=== PATIENT | female | born 1955 | race Hispanic/Latino ===

== ENCOUNTER 2016-07-31 09:48 | Inpatient (IN) | payer BC ==
[2016-07-31 09:56] VITALS: BMI 30.2
[2016-07-31 10:27] LABS: ADD MANUAL DIFF? NO
[2016-07-31 10:30] LABS: BASO # 0.01 K/mm3 (0.0-2.0); BASO % 0.1 % (0.0-3.0); EOS % 0.1 % (1.5-5.0); GRAN # 6.97 (1.4-6.5); GRAN % 77.5 % (50.0-68.0); HEMATOCRIT 39.9 % (36.0-48.0); LYMPH # 1.3 (1.2-3.4); LYMPH % 14.5 % (22.0-35.0); MEAN CELL VOLUME 84.4 fL (80.0-105.0); MEAN CORPUSCULAR HEMOGLOBIN 30.4 pg (25.0-35.0); MEAN CORPUSCULAR HGB CONC 36.1 g/dl (31.0-37.0); MEAN PLATELET VOLUME 11.4 fl (7.0-11.0); MONO # 0.7 (0.1-0.6); MONO % 7.8 % (1.0-6.0); PLATELET COUNT 290 10^3/uL (120.0-450.0)
[2016-07-31 10:31] LABS: PH,URINE 6.5 (4.7-8.0); URINE BILIRUBIN SMALL (NEGATIVE); URINE BLOOD NEGATIVE (NEGATIVE); URINE GLUCOSE (UA) NEGATIVE (NEGATIVE); URINE KETONE 15 mg/dL (NEGATIVE); URINE LEUKOCYTE ESTERASE NEGATIVE Leu/uL (NEGATIVE); URINE PROTEIN 30 mg/dL (<30 mg/dL); URINE UROBILINOGEN 0.2 E.U./dL (<1 E.U./dL)
[2016-07-31 10:34] LABS: URINE APPEARANCE SL CLOUDY (CLEAR); URINE COLOR LIGHT YELLOW (YELLOW)
--- NOTE | 2016-07-31 10:40 | ED PDOC ---
Arrival/HPI <Geoff Dhaliawl - Last Filed: 07/31/16 15:34> - General Historian: Patient, Family (son) - History of Present Illness Time/Duration: Other (see hpi) Context: Home <Rivas Fields - Last Filed: 08/06/16 00:18> - General Chief Complaint: Psychiatric Evaluation Time Seen by Provider: 07/31/16 10:26 - History of Present Illness Narrative History of Present Illness (Text): 07/31/16 10:37 Information was provided by patient' Son. This 61 yo Zeina Perez, a 61 year old female whose past medical history includes alcohol abuse, Hypertension, and Hepatitis B and C, depression, is brought to this ED by BLS for PES evaluation. Son stated patient has not been answering phone calls, so he showed up to patient home. Son found patient with auditory hallucination. Patient was talking to family members as they were in the house, however, patient was alone. Patient denies any complains at this time (Rivas Fields) Past Medical History - Provider Review Nursing Documentation Reviewed: Yes - Infectious Disease Hx of Infectious Diseases: None - Tetanus Immunization Tetanus Immunization: Unknown - Reproductive Menopause: Yes - Cardiac Hx Hypertension: Yes - Pulmonary Hx Respiratory Disorders: No - Neurological Hx Neurological Disorder: Yes (ams) Other/Comment: ETOH ABUSE - HEENT Hx HEENT Disorder: No - Renal Hx Renal Disorder: No - Endocrine/Metabolic Hx Endocrine Disorders: No - Hematological/Oncological Hx Hepatitis B: Yes Hx Hepatitis C: Yes - Integumentary Hx Dermatological Disorder: No - Musculoskeletal/Rheumatological Hx Falls: No - Gastrointestinal Hx Gastrointestinal Disorders: Yes Other/Comment: ETOH ABUSE - Psychiatric Hx Psychophysiologic Disorder: Yes (Alcohol abuse, heavy smoker) Hx Substance Use: No - Past Surgical History Past Surgical History: No Previous - Anesthesia Hx Anesthesia: No - Suicidal Assessment Feels Threatened In Home Enviroment: No <Rivas Fields - Last Filed: 08/06/16 00:18> Family/Social History - Physician Review Nursing Documentation Reviewed: Yes Family/Social History: No Known Family HX Smoking Status: Heavy Smoker > 10 Cigarettes Daily Hx Alcohol Use: Yes Hx Substance Use: No Hx Substance Use Treatment: No <Rivas Fields - Last Filed: 08/06/16 00:18> Allergies/Home Meds <Geoff Dhaliwal - Last Filed: 07/31/16 15:34> <Rivas Fields - Last Filed: 08/06/16 00:18> Allergies/Adverse Reactions: Allergies No Known Allergies Allergy (Verified 10/30/15 11:58) Home Medications: Home Meds Medication Instructions Recorded Confirmed Escitalopram [Lexapro] 10 mg PO HS 07/31/14 07/31/16 Pantoprazole Sodium [Protonix] 40 mg PO DAILY 07/31/14 07/31/16 Propranolol Hydrochloride [Inderal] 40 mg PO BID 07/31/14 07/31/16 Tramadol Hydrochloride [Tramadol] 50 mg PO TID PRN 08/02/14 07/31/16 Review of Systems - Review of Systems Constitutional: Normal. absent: Fatigue, Weight Change, Fevers Eyes: Normal. absent: Vision Changes ENT: Normal Respiratory: Normal. absent: SOB, Cough Cardiovascular: Normal. absent: Chest Pain, Palpitations Gastrointestinal: Normal. absent: Abdominal Pain, Nausea, Vomiting Genitourinary Female: Normal Musculoskeletal: Arthralgias (chronic) Skin: Normal. absent: Rash Neurological: Normal. absent: Headache, Dizziness Endocrine: Normal Hemo/Lymphatic: Normal Psychiatric: Other (Hallucination) <Rivas Fields P - Last Filed: 08/06/16 00:18> Physical Exam Temperature: Afebrile Blood Pressure: Hypertensive Pulse: Bradycardic Respiratory Rate: Normal Appearance: Positive for: Well-Appearing, Non-Toxic, Comfortable Pain Distress: None Mental Status: Positive for: Alert and Oriented X 3 - Systems Exam Head: Present: Atraumatic, Normocephalic Pupils: Present: PERRL Extroacular Muscles: Present: EOMI Conjunctiva: Present: Normal Mouth: Present: Moist Mucous Membranes Neck: Present: Normal Range of Motion Respiratory/Chest: Present: Clear to Auscultation, Good Air Exchange. No: Respiratory Distress, Accessory Muscle Use Cardiovascular: Present: Regular Rate and Rhythm, Normal S1, S2. No: Murmurs Abdomen: Present: Normal Bowel Sounds. No: Tenderness, Distention, Peritoneal Signs Back: Present: Normal Inspection. No: CVA Tenderness Upper Extremity: Present: Normal Inspection, Normal ROM, NORMAL PULSES, Neurovascularly Intact, Capillary Refill < 2s. No: Cyanosis, Edema Lower Extremity: Present: Normal Inspection, NORMAL PULSES, Normal ROM, Neurovascularly Intact, Capillary Refill < 2 s. No: Edema, CALF TENDERNESS Neurological: Present: GCS=15, CN II-XII Intact, Speech Normal, Motor Func Grossly Intact, Normal Sensory Function, Normal Cerebellar Funct, Gait Normal Skin: Present: Warm, Dry, Normal Color. No: Rashes Psychiatric: Present: Alert, Oriented x 3, Normal Insight. No: Suicidal Ideation, Homicidal Ideation <Rivas Fields P - Last Filed: 08/06/16 00:18> Vital Signs Temp Pulse Resp BP Pulse Ox 07/31/16 15:18 98.4 F 61 18 140/80 61 L 07/31/16 09:59 97.6 F 59 L 16 160/88 H 97 Medical Decision Making - EKG Interpretation Interpreted by ED Physician: Yes Type: 12 lead EKG <Geoff Dhaliwal - Last Filed: 07/31/16 15:34> Re-evaluation Time: 14:19 Reassessment Condition: Re-examined, Improving,but remains with symptoms <Rivas Fields P - Last Filed: 08/06/16 00:18> ED Course and Treatment: 07/31/16 15:35 No symptomatic arrhythmia noted. Hypokalemia. IV kcl and oral K ordered. Will repeat K. (Geoff Dhaliwal) 07/31/16 14:00 I spoke with PES screener who spoke with Psychiatrist and recommended admission for MDD w/ Psych, under Dr. Jean-Baptiste 07/31/16 16:17 K has improved (Rivas Fields) - Lab Interpretations Lab Results: 07/31/16 09:50 07/31/16 09:50 Lab Results 07/31/16 09:50: Salicylates < 1 L, Acetaminophen < 10.0 L 07/31/16 09:50: Urine Opiates Screen Negative, Urine Methadone Screen Negative, Ur Barbiturates Screen Negative, Ur Phencyclidine Scrn Negative, Ur Amphetamines Screen Negative, U Benzodiazepines Scrn Negative, U Oth Cocaine Metabols Negative, U Cannabinoids Screen Negative 07/31/16 09:50: Sodium 138, Potassium 2.5 L* D, Chloride 105, Carbon Dioxide 22 , Anion Gap 14, BUN 11, Creatinine 0.8, Est GFR ( Amer) > 60, Est GFR ( Non-Af Amer) > 60, Random Glucose 83, Calcium 9.5, Total Bilirubin 0.4, AST 24, ALT 36, Alkaline Phosphatase 69, Troponin I < 0.01, Total Protein 6.6, Albumin 4.0, Globulin 2.6, Albumin/Globulin Ratio 1.5 07/31/16 09:50: Urine Color Light yellow, Urine Appearance Sl cloudy, Urine pH 6.5, Ur Specific [place] >= 1.030, Urine Protein 30 H, Urine Glucose (UA) Negative, Urine Ketones 15 H, Urine Blood Negative, Urine Nitrate Negative, Urine Bilirubin Small H, Urine Urobilinogen 0.2, Ur Leukocyte Esterase Negative , Urine RBC 0 - 2, Urine WBC 0 - 2, Ur Epithelial Cells 1 - 3, Urine Bacteria Few 07/31/16 09:50: PT 11.2, INR 1.04, APTT 24.4 07/31/16 09:50: WBC 9.0, RBC 4.73, Hgb 14.4, Hct 39.9, MCV 84.4, MCH 30.4, MCHC 36.1, RDW 14.0, Plt Count 290, MPV 11.4 H, Gran % 77.5 H, Lymph % (Auto) 14.5 L , [place] % (Auto) 7.8 H, Eos % (Auto) 0.1 L, Baso % (Auto) 0.1, Gran # 6.97 H, Lymph # 1.3, [place] # 0.7 H, Eos # 0.0, Baso # 0.01 - RAD Interpretation Radiology Orders: 07/31/16 10:16 CHEST PORTABLE [RAD] Stat - EKG Interpretation EKG Interpretation (Text): 07/31/16 15:34 EKG at 10:25 sinus bradycardia left axis deviation, nonspecific t wave abnormality (Geoff Dhaliwal) - Medication Orders Current Medication Orders: Acetaminophen (Tylenol 325mg Tab) 650 mg PO Q4 PRN PRN Reason: Fever >100.4 F Last Admin: 08/04/16 10:11 Dose: 650 mg Re-Assess: [facility] Pain/Vitals Document 08/04/16 11:11 MARVIN (Rec: 08/04/16 11:22 MARVIN [id number]) Pain Reassessment Is This A Pain ReAssessment? Yes Sleep Is patient sleeping during reassessment? Yes Al Hydrox/Mg Hydrox/Simethicone (Maalox Plus 30 Ml) 30 ml PO DAILY PRN PRN Reason: Upset Stomach Al Hydrox/Mg Hydrox/Simethicone (Maalox Plus 30 Ml) 30 ml PO DAILY PRN PRN Reason: Upset Stomach Chlordiazepoxide (Librium) 50 mg PO Q12 [facility] PRN Reason: Protocol Last Admin: 08/05/16 17:35 Dose: 50 mg Diphenhydramine HCl (Benadryl) 25 mg PO DAILY [facility] Last Admin: 08/05/16 08:21 Dose: 25 mg Diphenhydramine HCl (Benadryl) 25 mg PO HS [facility] Last Admin: 08/05/16 21:24 Dose: 25 mg Escitalopram Oxalate (Lexapro) 10 mg PO HS [facility] Last Admin: 08/05/16 21:26 Dose: 10 mg Folic Acid (Folic Acid) 1 mg PO DAILY [facility] Last Admin: 08/05/16 08:14 Dose: 1 mg Magnesium Hydroxide (Milk Of Magnesia) 30 ml PO DAILY PRN PRN Reason: Constipation Magnesium Hydroxide (Milk Of Magnesia) 30 ml PO DAILY PRN PRN Reason: Constipation Multivitamins (Thera Tab) 1 tab PO DAILY [facility] Last Admin: 08/05/16 08:16 Dose: 1 tab Pantoprazole Sodium (Protonix Ec Tab) 40 mg PO ACB [facility] Last Admin: 08/05/16 08:14 Dose: 40 mg Propranolol HCl (Inderal) 40 mg PO BID [facility] Last Admin: 08/05/16 17:35 Dose: 40 mg Risperidone (Risperdal Oral Soln) 1 mg PO DAILY [facility] PRN Reason: Protocol Last Admin: 08/05/16 08:20 Dose: 1 mg Re-Assess: Reassess Psych Meds Document 08/05/16 08:50 MARVIN (Rec: 08/05/16 11:11 MARVIN [id number]) Reassess Psych Med Effective Risperidone (Risperdal Oral Soln) 1 mg PO [facility] PRN Reason: Protocol Last Admin: 08/05/16 21:39 Dose: 1 mg Thiamine HCl (Vitamin B1 Tab) 100 mg PO DAILY [facility] Last Admin: 08/05/16 08:15 Dose: 100 mg Tramadol HCl (Ultram) 50 mg PO TID PRN PRN Reason: Pain, moderate (4-7) Last Admin: 08/05/16 17:42 Dose: 50 mg Re-Assess: [facility] Pain Assessment Document 08/05/16 18:42 KF (Rec: 08/05/16 21:42 KF [id number]) Pain Reassessment Is this a pain reassessment? Yes Sleep Is patient sleeping during reassessment? Yes Discontinued Medications Acetaminophen (Tylenol 325mg Tab) 650 mg PO Q4 PRN PRN Reason: Pain, Mild (1-3) Last Admin: 07/31/16 21:25 Dose: 650 mg Re-Assess: [facility] Pain/Vitals Document 07/31/16 22:25 TW (Rec: 08/01/16 00:09 TW [id number]) Pain Reassessment Is This A Pain ReAssessment? Yes Presence of Pain Presence of Pain Yes Pain Scale Used Pain Scale Used Numeric Location Pain Location Body Site Calf Intensity 2 Scale Used Numeric Chlordiazepoxide (Librium) 25 mg PO Q8 [facility] PRN Reason: Protocol Last Admin: 08/02/16 08:04 Dose: 25 mg Re-Assess: Reassess Psych Meds Document 08/02/16 09:04 ABO (Rec: 08/02/16 10:33 ABO [id number]) Reassess Psych Med Effective Chlordiazepoxide (Librium) 50 mg PO Q8 [facility] PRN Reason: Protocol Last Admin: 08/03/16 21:41 Dose: 50 mg Chlorpromazine (Thorazine) 10 mg PO HS [facility] PRN Reason: Protocol Last Admin: 08/01/16 21:34 Dose: 10 mg Re-Assess: Reassess Psych Meds Document 08/01/16 22:34 MB (Rec: 08/02/16 01:34 MB [id number]) Reassess Psych Med Effective Chlorpromazine (Thorazine) 10 mg PO STAT STA PRN Reason: Protocol Stop: 08/01/16 12:00 Last Admin: 08/01/16 12:16 Dose: 10 mg Chlorpromazine (Thorazine) 10 mg PO BID LG PRN Reason: Protocol Last Admin: 08/02/16 08:04 Dose: 10 mg Re-Assess: Reassess Psych Meds Document 08/02/16 09:04 ABO (Rec: 08/02/16 10:34 ABO [id number]) Reassess Psych Med Ineffective-LIP notifed Chlorpromazine (Thorazine) 25 mg IM Q12H PRN; Protocol PRN Reason: severe agitation Last Admin: 08/03/16 01:32 Dose: 25 mg Re-Assess: Behavioural Document 08/03/16 02:02 DC (Rec: 08/03/16 03:08 [id number] Maintenance Maintenance Dose Yes Chlorpromazine (Thorazine) 25 mg PO BID LG PRN Reason: Protocol Last Admin: 08/03/16 09:56 Dose: Not Given Non-Admin Reason: Agitation Chlorpromazine (Thorazine) 25 mg PO HS LG PRN Reason: Protocol Last Admin: 08/02/16 21:46 Dose: 25 mg Re-Assess: Reassess Psych Meds Document 08/02/16 22:46 DC (Rec: 08/03/16 03:08 [id number] Reassess Psych Med Effective Dexamethasone (Decadron) 8 mg PO STAT STA Stop: 08/01/16 04:55 Last Admin: 08/01/16 05:58 Dose: 8 mg Diphenhydramine HCl (Benadryl) 25 mg PO STAT STA Stop: 08/01/16 04:55 Last Admin: 08/01/16 05:59 Dose: 25 mg Diphenhydramine HCl (Benadryl) 25 mg PO Q6 PRN PRN Reason: Allergy symptoms Last Admin: 08/02/16 22:58 Dose: 25 mg Famotidine (Pepcid) 40 mg PO STAT STA Stop: 08/01/16 04:55 Last Admin: 08/01/16 05:59 Dose: 40 mg Potassium Chloride (Potassium Chloride 10 Meq/100 Ml) 10 meq in 100 mls @ 100 mls/hr IVPB Q2H LG Stop: 07/31/16 13:59 Last Admin: 07/31/16 15:31 Dose: 100 mls/hr Lorazepam (Ativan) 0.5 mg PO BID LG PRN Reason: Protocol Last Admin: 07/31/16 21:29 Dose: 0.5 mg Re-Assess: Reassess Psych Meds Document 07/31/16 22:29 TW (Rec: 08/01/16 00:35 TW [id number]) Reassess Psych Med Effective Lorazepam (Ativan) 1 mg PO Q8H PRN; Protocol PRN Reason: Anxiety Last Admin: 08/01/16 00:31 Dose: 1 mg Re-Assess: Reassess Psych Meds Document 08/01/16 01:31 TW (Rec: 08/01/16 03:15 TW [id number]) Reassess Psych Med Ineffective-LIP notifed Lorazepam (Ativan) 0.5 mg PO ONCE ONE PRN Reason: Protocol Stop: 08/03/16 00:32 Last Admin: 08/03/16 00:46 Dose: 0.5 mg Re-Assess: Reassess Psych Meds Document 08/03/16 01:46 DCP (Rec: 08/03/16 03:08 DCP [id number]) Reassess Psych Med Effective Magnesium Oxide (Mag-Ox) 400 mg PO BID [facility] Last Admin: 08/03/16 13:48 Dose: Not Given Non-Admin Reason: Agitation Potassium Chloride (Potassium Chloride Oral Soln) 60 meq PO STAT STA Stop: 07/31/16 10:51 Last Admin: 07/31/16 11:25 Dose: 60 meq Potassium Chloride (K-Dur 20 Meq Er Tab) 40 meq PO ONCE ONE Stop: 08/01/16 13:17 Last Admin: 08/01/16 13:56 Dose: 40 meq Potassium Chloride (K-Dur 20 Meq Er Tab) 40 meq PO ONCE ONE Stop: 08/02/16 20:08 Last Admin: 08/02/16 20:35 Dose: 40 meq Propranolol HCl (Inderal) 40 mg PO BID [facility] Last Admin: 08/04/16 09:01 Dose: 40 mg Quetiapine Fumarate (Seroquel) 12.5 mg PO [facility] PRN Reason: Protocol Last Admin: 07/31/16 21:19 Dose: 12.5 mg Re-Assess: Reassess Psych Meds Document 07/31/16 22:19 TW (Rec: 08/01/16 01:50 TW [id number]) Reassess Psych Med Effective Risperidone (Risperdal Tab) 0.5 mg PO STAT STA PRN Reason: Protocol Stop: 08/02/16 15:07 Last Admin: 08/02/16 15:18 Dose: 0.5 mg Re-Assess: Reassess Psych Meds Document 08/02/16 16:18 ABO (Rec: 08/02/16 17:44 ABO [id number]) Reassess Psych Med Ineffective-LIP notifed Ziprasidone (Geodon Inj) 10 mg IM Q12H PRN; Protocol PRN Reason: Agitation Last Admin: 08/01/16 00:31 Dose: 10 mg Re-Assess: Reassess Psych Meds Document 08/01/16 01:01 TW (Rec: 08/01/16 03:15 TW [id number]) Reassess Psych Med Ineffective-LIP notifed Disposition/Present on Arrival <Geoff Dhaliwal - Last Filed: 07/31/16 15:34> - Present on Arrival Any Indicators Present on Arrival: No History of DVT/PE: No History of Uncontrolled Diabetes: No Urinary Catheter: No History of Decub. Ulcer: No History Surgical Site Infection Following: None - Disposition Have Diagnosis and Disposition been Completed?: Yes Disposition Time: 14:20 Patient Plan: Admission <Rivas Fields - Last Filed: 08/06/16 00:18> - Disposition Diagnosis: Major depressive disorder with psychotic features, Hypokalemia Disposition: HOSPITALIZED Patient Problems: Current Active Problems Problem Status Onset Hypokalemia Acute Major depressive disorder with psychotic features Acute Condition: GOOD
[2016-07-31 10:42] LABS: INR 1.04 (0.93-1.08); PARTIAL THROMBOPLASTIN TIME 24.4 Seconds (23.7-30.8)
[2016-07-31 10:44] LABS: ALB/GLOB RATIO 1.5 (1.1-1.8); ALKALINE PHOSPHATASE 69 U/L (38-133); ALT/SGPT 36 U/L (7-56); AST/SGOT 24 U/L (15-39); BILIRUBIN,TOTAL 0.4 mg/dL (0.2-1.3); BLOOD UREA NITROGEN 11 mg/dL (7-21); CALCIUM 9.5 mg/dL (8.4-10.5); CARBON DIOXIDE 22 mmol/L (21-33); CHLORIDE 105 mmol/L (98-107); GFR AFRICAN-AMERICAN > 60; GLUCOSE,RANDOM 83 mg/dL (70-110); SODIUM 138 mmol/L (132-148); TOTAL PROTEIN 6.6 g/dL (5.8-8.3)
[2016-07-31 10:47] LABS: URINE RBC 0 - 2 /hpf (0-2); URINE WBC 0 - 2 /hpf (0-6)
[2016-07-31 10:48] LABS: URINE BACTERIA FEW (NEG)
[2016-07-31 10:49] LABS: POTASSIUM 2.5 mmol/L (3.6-5.0)
[2016-07-31] MEDS ORDERED: Potassium Chloride 20 mEq/15 ml LIQ UD PO STA (10:50)
[2016-07-31 10:55] LABS: TROPONIN I < 0.01 ng/mL
--- NOTE | 2016-07-31 12:17 | RAD ---
HISTORY: med. clearance COMPARISON: 05/15/2016 FINDINGS: LUNGS: No active pulmonary disease. PLEURA: No significant pleural effusion identified, no pneumothorax apparent. CARDIOVASCULAR: Normal. OSSEOUS STRUCTURES: No significant abnormalities. VISUALIZED UPPER ABDOMEN: Normal. OTHER FINDINGS: None. IMPRESSION: No active disease.
--- NOTE | 2016-07-31 12:28 | CARD ---
APPROVED REPORT EKG Measurement Heart [id number] <Conclusion> Sinus bradycardia Left axis deviation Nonspecific T wave abnormality Abnormal ECG
[2016-07-31 17:53] VITALS: O2SAT 99
[2016-07-31] MEDS ORDERED: Magnesium Hydroxide Susp 30 ml UD PO PRN (19:08)
[2016-07-31] MEDS ORDERED: Alum-Mag Hydrox-Simethicone Susp (30 mL) PO PRN (19:08)
--- NOTE | 2016-08-01 06:00 | CP.PCM.PN ---
Subjective - Date & Time of Evaluation Date of Evaluation: 08/01/16 Time of Evaluation: 04:30 - Subjective Subjective: Evaluated patient for lip swelling called by the nurse. Patient admitted to the [facility] for bizzare psychosis and has not been contributing to the information, speaks Togolese, and information obtained with help of Togolese speaking nurse, who was also the nurse for the patient. As per the nurse lip swelling noticed this morning around 3 am, was not noticed yesterday during 1st interview around 9 pm. Swelling has been stable, probably getting smaller since the time noticed to the time of the eval as per the nurse. Patient denies any complains. No history of allergies from the chart or from the patient. On exam, patient in no distress. Lower lip on the left side swollen, without any injury, no swelling in the eyes , tongue, pharynx No neck swelling Chest no abnormal breathing sounds Skin no rash or itching Clinically Angioedema, vs lip swelling form burn, insect bite, some other allergic reaction Patient received ativan, geodon, seroquil and tylenol since admission over night. Above meds held, patient given single dose of Decadron, benadryl, pepcid. For acute psychotic behaviour patient should be started one med at a time, and could start with haldol, librium, valium for acute behaviour. Above held meds could be restarted one at a time with close observation. Swelling of the lip will be observed by the nursing, and primary team will be notified by the nursing. Objective - Vital Signs/Intake and Output Vital Signs (last 24 hours): Temp Pulse Resp BP Pulse Ox 98.4 F 78 18 130/73 99 07/31/16 15:18 08/01/16 03:22 08/01/16 03:22 08/01/16 03:22 08/01/16 03:22 - Medications Medications: Current Medications Al Hydrox/Mg Hydrox/Simethicone (Maalox Plus 30 Ml) 30 ml PO DAILY PRN PRN Reason: Upset Stomach Magnesium Hydroxide (Milk Of Magnesia) 30 ml PO DAILY PRN PRN Reason: Constipation Quetiapine Fumarate (Seroquel) 12.5 mg PO HS LG PRN Reason: Protocol Last Admin: 07/31/16 21:19 Dose: 12.5 mg - Labs Labs: 07/31/16 17:00 PT 11.2 Seconds (9.9-11.8) 07/31/16 09:50 INR 1.04 (0.93-1.08) 07/31/16 09:50 APTT 24.4 Seconds (23.7-30.8) 07/31/16 09:50
[2016-08-01 07:56] LABS: CHOLESTEROL 170 mg/dL (130-200)
[2016-08-01 08:27] LABS: FREE T4 1.48 ng/dL (0.78-2.19)
[2016-08-01 08:41] LABS: THYROID STIMULATING HORMONE 0.88 mIU/mL (0.46-4.68)
[2016-08-01] MEDS ORDERED: Alum-Mag Hydrox-Simethicone Susp (30 mL) PO PRN (10:09)
[2016-08-01] MEDS ORDERED: Magnesium Hydroxide Susp 30 ml UD PO PRN (10:09)
[2016-08-01] MEDS ORDERED: Potassium Chloride 20 mEq ER Tab PO ONE (13:16)
[2016-08-01] MEDS: Multivitamin Therapeutic Tab PO SCH (14:01)
--- NOTE | 2016-08-01 14:47 | PCM.PSYCH ---
Initial Psychiatric Evaluation - Initial Psychiatric Evaluation Type of Admission: Voluntary Legal Status: Capacity (patient has capacity to sign consent for treatment) Chief Complaint (in patient's own words): "my sister and my was drinking and I'm here" off note patient a few years ago and patient sister lives in [place], patient is delusional, disoriented, psychotic. Patient's Reaction to Hospitalization: patient was brought in by her son for evaluation of disorganized, psychotic behavior, patient needs further evaluation and stabilization medications adjustment. History of Present Illness and Precipitating Events: shortly patient is 61 years old female, [place] descent, was brought in by her son for evaluation of disorganized, psychotic behavior, patient also has history of alcohol use disorder, withdrawal symptoms cannot be excluded, patient lives alone, has history of depression, patient alsohas history of alcohol addiction, patient needs further evaluation and stabilization on medications adjustment. Patient was seen and examined today at the treatment team meeting. Patient presented to have acceptable personal hygiene, good ADLs. patient is [place] speaking and this movie writer utilized TV translation services to interview pt. Patient presented to be completely disorganized, disoriented, rapid speech, sheetrock applicator said that it is hard to understand what pt is talking. patient was asking this movie writer where does she leave, patient also was making comments like her who and her sister will keep drinking at home and that is why she was admitted to the hospital. At the same time patient said she came to the hospital because primary care physician said that she has low potassium and she would because of that. Patient presented to have difficulty to stay focus and concentrate patient was not able to have meaningful conversation, was not able to draw a clock, remembered only two words on [employer]. pt denied v/a/t hallucinations, but was observed talking to the sealing, self, actively hallucinating. this movie writer is familiar this patient from consultation services last here. Patient has history of depression but no history of psychotic symptoms. The same time this movie writer cannot exclude that patient was Drinking on daily basis, this movie writer had prolonged conversation with the patient's primary care physician , as per PMD patient has episodes of confusion as well as our patient's employer or contact PCP and said pt seemed to be under the influence of some drugs?/alcohol/ pt also was confused at work. pt work at the [employer]. pt lives alone and has supportive son who brought pt to the hospital, pt's few years back. as per nursing report overnight patient was restless patient got Geodon, seroquel, ativan, pt got lips swelling, had angioedema, house physician d/c meds , benadryl and decadrone was given. at the moment of the interview no swelling, presented well. pt was on seroquel in the past but will put psychotropics on hold, pt might benefit from thorazine small dose. past psych h/o: denied admissions to psych, denied suicidal attempts, pt has h/ o depression, h/o alcohol use. family h/o: denied pt denied using drugs, denied smoking, denied alcohol consumptions "for the past four years", but pt is unreliable historian, last year pt was on the medical floor and pt was drinking back then. 07/31/16 09:50 07/31/16 17:00 Lab Results 08/01/16 07:00: Triglycerides 128, Cholesterol 170, LDL Cholesterol Direct 91, HDL Cholesterol 53 08/01/16 07:00: Free T4 1.48, TSH 3rd Generation 0.88 07/31/16 17:00: Potassium 3.4 L 07/31/16 09:50: Salicylates < 1 L, Acetaminophen < 10.0 L 07/31/16 09:50: Urine Opiates Screen Negative, Urine Methadone Screen Negative, Ur Barbiturates Screen Negative, Ur Phencyclidine Scrn Negative, Ur Amphetamines Screen Negative, U Benzodiazepines Scrn Negative, U Oth Cocaine Metabols Negative, U Cannabinoids Screen Negative 07/31/16 09:50: Sodium 138, Potassium 2.5 L* D, Chloride 105, Carbon Dioxide 22 , Anion Gap 14, BUN 11, Creatinine 0.8, Est GFR ( Amer) > 60, Est GFR ( Non-Af Amer) > 60, Random Glucose 83, Calcium 9.5, Total Bilirubin 0.4, AST 24, ALT 36, Alkaline Phosphatase 69, Troponin I < 0.01, Total Protein 6.6, Albumin 4.0, Globulin 2.6, Albumin/Globulin Ratio 1.5 07/31/16 09:50: Urine Color Light yellow, Urine Appearance Sl cloudy, Urine pH 6.5, Ur Specific [place] >= 1.030, Urine Protein 30 H, Urine Glucose (UA) Negative, Urine Ketones 15 H, Urine Blood Negative, Urine Nitrate Negative, Urine Bilirubin Small H, Urine Urobilinogen 0.2, Ur Leukocyte Esterase Negative , Urine RBC 0 - 2, Urine WBC 0 - 2, Ur Epithelial Cells 1 - 3, Urine Bacteria Few 07/31/16 09:50: PT 11.2, INR 1.04, APTT 24.4 07/31/16 09:50: WBC 9.0, RBC 4.73, Hgb 14.4, Hct 39.9, MCV 84.4, MCH 30.4, MCHC 36.1, RDW 14.0, Plt Count 290, MPV 11.4 H, Gran % 77.5 H, Lymph % (Auto) 14.5 L , [place] % (Auto) 7.8 H, Eos % (Auto) 0.1 L, Baso % (Auto) 0.1, Gran # 6.97 H, Lymph # 1.3, [place] # 0.7 H, Eos # 0.0, Baso # 0.01 Vital Signs Temp Pulse Resp BP Pulse Ox 08/01/16 10:27 98.2 F 08/01/16 10:21 102 F H 08/01/16 10:08 102.0 F H 83 149/91 H 08/01/16 03:22 78 18 130/73 99 07/31/16 19:05 18 07/31/16 17:53 65 18 148/79 99 07/31/16 15:18 98.4 F 61 18 140/80 61 L 07/31/16 09:59 97.6 F 59 L 16 160/88 H 97 Current Medications: Active Medications Generic Name Dose Route Start Last Admin Trade Name Freq PRN Reason Stop Dose Admin Acetaminophen 650 mg 08/01/16 10:09 08/01/16 10:21 Tylenol 325mg Tab PO 650 mg Q4 PRN Administration Fever >100.4 F Al Hydrox/Mg Hydrox/Simethicone 30 ml 07/31/16 19:08 Maalox Plus 30 Ml PO DAILY PRN Upset Stomach Al Hydrox/Mg Hydrox/Simethicone 30 ml 08/01/16 10:09 Maalox Plus 30 Ml PO DAILY PRN Upset Stomach Chlordiazepoxide 25 mg 08/01/16 14:00 Librium PO Q8 LG Protocol Chlorpromazine 10 mg 08/01/16 22:00 Thorazine PO HS [facility] Protocol Diphenhydramine HCl 25 mg 08/01/16 09:38 Benadryl PO Q6 PRN Allergy symptoms Magnesium Hydroxide 30 ml 07/31/16 19:08 Milk Of Magnesia PO DAILY PRN Constipation Magnesium Hydroxide 30 ml 08/01/16 10:09 Milk Of Magnesia PO DAILY PRN Constipation Multivitamins 1 tab 08/01/16 09:45 Thera Tab PO DAILY LG Thiamine HCl 100 mg 08/01/16 09:45 Vitamin B1 Tab PO DAILY LG Past Psychiatric History - Past Psychiatric History Previous Treatment History: None Prior Professional Help: see HPI Prior Psychiatric Treatment: see HPI At what hospital: see HPI Duration: see HPI Nature of Treatment: see HPI Explanation of prior treatment: see HPI History of Abuse: see HPI denied History of ETOH/Drug Use: see HPI History of Family Illness: see HPI Pertinent Medical Hx (Current Medical&Sleep Prob, Allergies): Allergies Allergy/AdvReac Type Severity Reaction Status Date / Time No Known Allergies Allergy Verified 10/30/15 11:58 Escitalopram [Lexapro] 10 mg PO HS 07/31/14 Pantoprazole Sodium [Protonix] 40 mg PO DAILY 07/31/14 Propranolol Hydrochloride [Inderal] 40 mg PO BID 07/31/14 Tramadol Hydrochloride [Tramadol] 50 mg PO TID PRN 08/02/14 Review of Systems - Review of Systems Systems not reviewed;Unavailable: Acuity of Condition - EENT Eyes: As Per HPI Ears: As Per HPI Nose/Mouth/Throat: As Per HPI - Breasts Breasts: As Per HPI - Cardiovascular Cardiovascular: As Per HPI - Respiratory Respiratory: As Per HPI - Gastrointestinal Gastrointestinal: As Per HPI - Genitourinary Genitourinary: As Per HPI - Reproductive: Female Reproductive:Female: As Per HPI - Menstruation Menstruation: As Per HPI - Musculoskeletal Musculoskeletal: As Par HPI - Integumentary Integumentary: As Per HPI - Neurological Neurological: As Per HPI - Psychiatric Psychiatric: As Per HPI - Endocrine Endocrine: As Per HPI - Hematologic/Lymphatic Hematologic: As Per HPI Mental Status Examination - Personal Presentation Personal Presentation: Looks stated age - Affect Affect: Broad (at times inapropriate, pt was having angry outbursts) - Motor Activity Motor Activity: Psychomotor Agitation - Reliability in Providing Information Reliability in Providing Information: Poor, due to alteration in thoughts, Poor , due to altered mood - Speech Speech: Disorganized - Mood Mood: Depressed, Anxious - Formal Thought Process Formal Thought Process: Hallucinations, Delusions, Paranoia, Loosening of associations, Flight of ideas, Circumstantial - Hallucinations/Delusions Hallucinations: Visual, Auditory - Obsessions/Compulsions Obsessions: None Compulsions: None - Cognitive Functions Orientation: Person Sensorium: Alert Attention/Concentration: Easily distracted Abstract Thinking: [place] Estimate of Intelligence: Average Judgement: Intact, as evidence by: Insight regarding need for hospitalization - Risk Risk: Withdrawal, Self-mutilation, Diminished functioning - Strength & Assets Inventory Strength & Assets Inventory: Family support, Employment status, Employment history, Cooperative - Limitations Limitations: Other (pt lives alone) DSM 5 DX - DSM 5 DSM 5 Diagnosis: psychosis NOS r/o MDD with psychosis r/o delirium due to alcohol withdrawals alcohol abuse, dependence r/o bipolar (pt was irritable, pressured speech, was not sleeping) - Recommended/Plan of Treatment Treatment Recommendations and Plan of Treatment: milieu, structure, supportive therapy Ativan be discontinued Librium was started 25 mg 3 times a day for possible withdrawalsymptoms Multivitamins, thiamine, folic acid Vital signs needs to be checked on regular basis Seroquel was discontinued because patient has lip swelling Thorazine will be given 10 mg twice a day stat dose was given patient was observed there is no side effects observed or reported Benadryl as needed collaterals from primary care physician appreciated family involvement pt will be on 1:1, pt is disoriented, has tendency of wondering in the unit, impulses unpredictable. SW evaluation Projected ELOS: 7days Prognosis: guarded Discharge Plan and Discharge Criteria: Pt will be not depressed or manic, will be more hopeful, will be not psychotic or anxious, will be not having thoughts of harming self or others, will be tolerating medications well, will not have major side effects, will be able to function, will not pose threat to self or others. - Smoking Cessation Smoking Cessation Initiated: No Reason for not providing: pt does not smoke
--- NOTE | 2016-08-01 21:16 | CON ---
DATE: 08/01/2016 The patient in room 515, bed 2. REASON FOR CONSULTATION: Hypertension, bradycardia on EKG, psychosis, alcohol abuse, obesity. HISTORY OF PRESENT ILLNESS: The patient is a 61-year-old female, known case of heavy alcohol abuse, admitted to psychiatric floor with psychosis. Found to have on EKG sinus bradycardia. The patient d enies chest pain, shortness of breath, palpitations. The patient known to have hypertension in the p ast and she is taking propranolol 40 mg b.i.d. for that. The patient also known to have hepatitis B and hepatitis C. PAST MEDICAL HISTORY: Positive for hypertension, hepatitis C, hepatitis B, alcohol abuse, also has t obacco abuse. PERSONAL HISTORY: Still smokes heavy and drinks heavy. ALLERGIES: Denies allergies. FAMILY HISTORY: Not significant. HOME MEDICATIONS: The patient was taking tramadol 50 mg t.i.d. p.r.n., propranolol hydrochloride whi ch is Inderal 40 mg b.i.d., Protonix 40 p.o. daily, Lexapro 10 mg p.o. at bedtime. REVIEW OF SYSTEMS: All other systems were reviewed, positive mentioned in the history, otherwise neg ative. PHYSICAL EXAMINATION: VITAL SIGNS: Blood pressure 149/91, earlier pressure today was 130/73, respirations 18, pulse 83, te mperature 98.2. HEENT: Head is normocephalic. Eyes: Pupils normal. Conjunctivae normal. Nose and throat normal. NECK: JVP low. Carotid equal. THORAX: AP diameter normal. LUNGS: Clear. CARDIOVASCULAR: S1, S2. ABDOMEN: Protuberant, no organomegaly. EXTREMITIES: No clubbing, no cyanosis. LABORATORY DATA: Shows WBC 9.0, hemoglobin 14.4, hematocrit 39.9, platelet 290. Sodium 138. Potass ium yesterday was 2.5. The patient received potassium therapy and today is 3.4. BUN 11, creatinine 0.8. AST, ALT normal. Troponin less than 0.01. Triglyceride 128, cholesterol 170, LDL 91, HDL 53. TSH 0.88, free T4 of 1.48, normal. Chest x-ray: No significant abnormality. EKG showed sinus phillip ycardia at 59 per minute, left axis deviation, nonspecific ST-T changes. DIAGNOSES: Hypertension, bradycardia on EKG related to Inderal therapy, alcohol abuse, history of he patitis B, hepatitis C, tobacco abuse, obesity, hypokalemia, psychosis, hypertension. PLAN: We will give extra potassium 40 mEq p.o. today and repeat SMA-7 and magnesium in the morning. The patient getting folic acid 1 mg p.o. daily, Librium 25 mg q. 8 hours. We will restart Inderal 4 0 mg p.o. b.i.d. We follow with you. We will follow labs in the morning. Yohan Bateman MD cc: [id number] TT: 08/01/2016 21:15:47 Confirmation # [id number] Dictation # [id number] mn
[2016-08-02 08:09] LABS: BLOOD UREA NITROGEN 18 mg/dL (7-21); CALCIUM 9.6 mg/dL (8.4-10.5); CARBON DIOXIDE 21 mmol/L (21-33); CHLORIDE 114 mmol/L (98-107); GFR AFRICAN-AMERICAN > 60; GLUCOSE,RANDOM 111 mg/dL (70-110); MAGNESIUM 1.6 mg/dL (1.7-2.2); PHOSPHOROUS 2.6 mg/dL (2.5-4.5); POTASSIUM 3.1 mmol/L (3.6-5.0); SODIUM 145 mmol/L (132-148)
--- NOTE | 2016-08-02 10:42 | CON ---
DATE: 08/01/2016 HISTORY OF PRESENT ILLNESS: The patient is a 61-year-old Citizen Of [place]-speaking female who was brought to [facility] Emergency Room by her son. She apparently had not been answering her phone for the past couple of days and he went to visit her, found her hallucinating, talking to people in her apartment that were not there, was having long conversations with a sister in [place]: Therefore, she was brought to the Emergency Room, was evaluated and admitted to the psychiatric department of [facility]. PAST MEDICAL HISTORY: I have known the patient since 2000. She is known to have a history of hypert ension, varicose vein surgery. She was hospitalized several times in the past for mental status carlson ges and alcohol withdrawal between 2013 and 2015. SOCIAL HISTORY: She smokes 1 pack of cigarettes a day. Drinks alcohol, 2 cups of coffee. She is a , has 1 son. ALLERGIES: She has no known medical allergies. MEDICATIONS: At the time of admission include Vicoprofen 4 times a day p.r.n., tramadol 50 mg 3 or 4 times a day as needed for low back pain, Lexapro 10 mg, Tranxene 7.5 mg 3 times a day, losartan/hydr ochlorothiazide 100/25 once a day, Wellbutrin 300 mg once a day, and pantoprazole 40 mg once a day. REVIEW OF SYSTEMS: Otherwise unremarkable. PHYSICAL EXAMINATION: GENERAL: When the patient was evaluated on 5B, she was awake, alert, oriented; however, she denied t hat anything was wrong with her. She claims she came to the Emergency Room because of right lower ex tremity pain and tenderness. She denies being brought in by her son. Denies hearing voices or talki ng to anyone. HEAD, EYES, EARS, NOSE AND THROAT: Unremarkable. NECK: Supple, with no lymphadenopathy, no goiter. LUNGS: Clear to auscultation and percussion. HEART: Regular. No murmurs are appreciated. ABDOMEN: Soft and nontender with no organomegaly. EXTREMITIES: Free of cyanosis, clubbing or edema. There is a small healing abrasion on the right pr etibial area post trauma. NEUROLOGIC: The patient is awake, alert, and oriented with no focal neurological signs. The case was discussed with Dr. Jean-Baptiste and she will be followed closely. However, from a medical point of view, the patient appears stable at this time. Dani Marroquin MD cc: [id number] TT: 08/02/2016 10:41:22 Confirmation # [id number] Dictation # [id number] tn
[2016-08-02] MEDS: Multivitamin Therapeutic Tab PO SCH (10:44)
--- NOTE | 2016-08-02 15:17 | PCM.PYCHPN ---
Psychiatric Progress Note - Psychiatric Progress Note Patient seen today, length of contact: 30 minutes Patient Chief Complaint: "I I know my at home drinking, time in this hospital for past 2 weeks" off note patient a few years back, patient was admitted 2 days ago Problems Identified/Issues Discussed: Suicide/ homicide prevention, past psychiatric h/o, current psychiatric symptoms , medical problems, risk/benefits and alternatives of medications, medications compliance, coping strategies, substance abuse h/o, relapse prevention, importance of follow up with psychiatrist and therapist, discharge plan. Medical Problems: see HPI Diagnostic Results: 07/31/16 09:50 08/02/16 06:00 Lab Results 08/02/16 06:00: Sodium 145, Potassium 3.1 L, Chloride 114 H, Carbon Dioxide 21, Anion Gap 13, BUN 18, Creatinine 0.7, Est GFR ( Amer) > 60, Est GFR (Non- Af Amer) > 60, Random Glucose 111 H, Calcium 9.6, Phosphorus 2.6, Magnesium 1.6 L 08/01/16 07:35: RPR Nonreactive 08/01/16 07:00: Triglycerides 128, Cholesterol 170, LDL Cholesterol Direct 91, HDL Cholesterol 53 08/01/16 07:00: Free T4 1.48, TSH 3rd Generation 0.88 07/31/16 17:00: Potassium 3.4 L 07/31/16 09:50: Salicylates < 1 L, Acetaminophen < 10.0 L 07/31/16 09:50: Urine Opiates Screen Negative, Urine Methadone Screen Negative, Ur Barbiturates Screen Negative, Ur Phencyclidine Scrn Negative, Ur Amphetamines Screen Negative, U Benzodiazepines Scrn Negative, U Oth Cocaine Metabols Negative, U Cannabinoids Screen Negative 07/31/16 09:50: Sodium 138, Potassium 2.5 L* D, Chloride 105, Carbon Dioxide 22 , Anion Gap 14, BUN 11, Creatinine 0.8, Est GFR ( Amer) > 60, Est GFR ( Non-Af Amer) > 60, Random Glucose 83, Calcium 9.5, Total Bilirubin 0.4, AST 24, ALT 36, Alkaline Phosphatase 69, Troponin I < 0.01, Total Protein 6.6, Albumin 4.0, Globulin 2.6, Albumin/Globulin Ratio 1.5 07/31/16 09:50: Urine Color Light yellow, Urine Appearance Sl cloudy, Urine pH 6.5, Ur Specific [place] >= 1.030, Urine Protein 30 H, Urine Glucose (UA) Negative, Urine Ketones 15 H, Urine Blood Negative, Urine Nitrate Negative, Urine Bilirubin Small H, Urine Urobilinogen 0.2, Ur Leukocyte Esterase Negative , Urine RBC 0 - 2, Urine WBC 0 - 2, Ur Epithelial Cells 1 - 3, Urine Bacteria Few 07/31/16 09:50: PT 11.2, INR 1.04, APTT 24.4 07/31/16 09:50: WBC 9.0, RBC 4.73, Hgb 14.4, Hct 39.9, MCV 84.4, MCH 30.4, MCHC 36.1, RDW 14.0, Plt Count 290, MPV 11.4 H, Gran % 77.5 H, Lymph % (Auto) 14.5 L , [place] % (Auto) 7.8 H, Eos % (Auto) 0.1 L, Baso % (Auto) 0.1, Gran # 6.97 H, Lymph # 1.3, [place] # 0.7 H, Eos # 0.0, Baso # 0.01 Vital Signs Temp Pulse Resp BP Pulse Ox 08/02/16 10:43 96 H 156/101 H 08/02/16 07:40 98.0 F 96 H 20 156/101 H 08/01/16 14:00 92 H 148/94 H 08/01/16 10:27 98.2 F 08/01/16 10:21 102 F H 08/01/16 10:08 102.0 F H 83 149/91 H 08/01/16 03:22 78 18 130/73 99 07/31/16 19:05 18 07/31/16 17:53 65 18 148/79 99 07/31/16 15:18 98.4 F 61 18 140/80 61 L 07/31/16 09:59 97.6 F 59 L 16 160/88 H 97 DSM 5 Symptoms Update: shortly patient is 61 years old female, Citizen Of [place] descent, was brought in by her son for evaluation of disorganized, psychotic behavior, patient also has history of alcohol use disorder, withdrawal symptoms cannot be excluded, patient lives alone, has history of depression, patient alsohas history of alcohol addiction, patient needs further evaluation and stabilization on medications adjustment. Patient was seen and examined today at the treatment team meeting. Patient presented to have acceptable personal hygiene, good ADLs. patient is Citizen Of [place] speaking and this card writer hand utilized TV translation services to interview pt. Patient presented to be completely disorganized, disoriented, rapid speech, quality checker said that it is hard to understand what pt is talking. pt is still delusional, emotionally labile, was crying, then giggling inappropriately. will try risperdal, will f/u on that. pt also has pressured speech, restless, passing in the hallway. As per self patient is disorganized, psychotic, restless, did not have a good night sleep. Impression psychosis NOS r/o MDD with psychosis r/o delirium due to alcohol withdrawals alcohol abuse, dependence r/o bipolar (pt was irritable, pressured speech, was not sleeping) pharmacy was called patient was on following medications Klonopin 1 mg 3 times a day last fill in June 28 Tramadol 50 mg 2 tabs 3 times a day last field in June 28 Lexapro 10 mg at the nighttime last field in June 19 Wellbutrin extended-release 300 mg daily field in June 09 Vicoprofen 200 mg over 7.5 mg every 4 hours last field in 07/19 as per son's collaterals, pt was taking medications more than what was prescribed, round short, after that was drinking alcohol. Medication Change: Yes (Thorazine was increased, Risperdal stat dose was given will follow-up) Medical Record Reviewed: Yes Consults ordered or reviewed: medical consult appreciated, discussed with PMD yesterday Mental Status Examination - Cognitive Function Orientation: Person Attention: Poor Concentration: Poor Association: Loose Fund of Knowledge: Poor - Mood Mood: Depressed, Anxious - Affect Affect: Broad (at times inapropriate, pt was having angry outbursts) - Speech Speech: Pressured - Formal Thought Process Formal Thought Process: Hallucinations, Delusions, Paranoia, Loosening of associations, Flight of ideas, Circumstantial - Suicidal Ideation Suicidal Ideation: No - Homicidal Ideation Homicidal Ideation: No Goal/Treatment Plan - Goal/Treatment Plan Need for Continued Stay: Remain at risks for inpatient hospitalization, Severe depression anxiety, Discharge may exacerbated symptoms, Severe functional impairment Progress Toward Problem(s) and Goals/Treatment Plan: milieu, structure, supportive therapy Ativan be discontinued Librium 50 mg 3 times a day for possible withdrawalsymptoms Multivitamins, thiamine, folic acid Vital signs needs to be checked on regular basis Seroquel was discontinued because patient has lip swelling [id number] mg mg twice a day and 25 mg at the nighttime for psychotic symptoms This card writer hand will implement Risperdal 0.5 mg stat if patient will tolerate that medication well we will consider to continue that and discontinue Thorazine. Benadryl as needed collaterals from primary care physician appreciated family involvement pt will be on 1:1, pt is disoriented, has tendency of wondering in the unit, impulses unpredictable. SW evaluation Estimated Date of D/C: 08/08/16 (we'll monitor closely)
[2016-08-02] MEDS ORDERED: Potassium Chloride 20 mEq ER Tab PO ONE (20:07)
[2016-08-02] MEDS: Magnesium Oxide 400 mg Tab UD PO SCH (20:34)
--- NOTE | 2016-08-02 20:34 | PN ---
DATE: 08/02/2016 The patient in 513, bed 1. REASON FOR CONSULTATION: Hypertension, bradycardia on EKG, psychosis, alcohol abuse. HISTORY OF PRESENT ILLNESS: The patient is a 61-year-old female, known case of alcohol abuse, admitt ed to psychiatric floor with psychosis found to have EKG sinus bradycardia. The patient denies any c hest pain, shortness of breath, palpitation. The patient known to have hypertension in the past. Sh ciara is taking propranolol 40 mg b.i.d. The patient also known to have hepatitis B and hepatitis C. The patient denies any cardiac symptoms at present including chest pain, shortness of breath, palpitatio n. PHYSICAL EXAMINATION: VITAL SIGNS: Blood pressure 139/89, respirations 20, pulse 79, temperature 98.0. HEAD: Normocephalic. EYES: Pupils normal. Conjunctivae normal. NOSE AND THROAT: Normal. NECK: JVP low. Carotid equal. THORAX: AP diameter normal. LUNGS: Clear. CARDIOVASCULAR: S1, S2. ABDOMEN: Soft, nontender, no organomegaly. Bowel sounds normal. EXTREMITIES: No clubbing, no cyanosis. LABORATORY DATA: Sodium 145, potassium 3.1, BUN 18, creatinine 0.7, random sugar 111, calcium 9.6, p hosphorus 2.6, magnesium 1.6. DIAGNOSES: Hypertension, bradycardia on EKG related to inderal therapy, alcohol abuse, history of he patitis B, hepatitis C, tobacco abuse, hypokalemia, psychosis, hypertension, hypomagnesemia. PLAN: We will give extra potassium 40 mEq p.o. today, will also give magnesium oxide today and will repeat labs in the morning. In the meantime, continue her propranolol 40 b.i.d. along with therapy. We will follow with you. Yohan Bateman MD cc: [id number] TT: 08/02/2016 20:33:36 Confirmation # [id number] Dictation # [id number] derrek
[2016-08-03 07:44] LABS: BLOOD UREA NITROGEN 23 mg/dL (7-21); CALCIUM 9.9 mg/dL (8.4-10.5); CARBON DIOXIDE 22 mmol/L (21-33); CHLORIDE 114 mmol/L (95-110); GFR AFRICAN-AMERICAN > 60; GLUCOSE,RANDOM 115 mg/dL (70-110); MAGNESIUM 1.7 mg/dL (1.7-2.2); PHOSPHOROUS 3.1 mg/dL (2.5-4.5); POTASSIUM 3.6 mmol/L (3.6-5.0); SODIUM 144 mmol/L (132-148)
--- NOTE | 2016-08-03 12:43 | PN ---
DATE: 08/03/2016 The patient is in room 513, bed 1. REASON FOR CONSULTATION: Hypertension, bradycardia on EKG, psychosis, alcohol abuse. HISTORY OF PRESENT ILLNESS: A 61-year-old female, known case of alcohol abuse, admitted to psychiatr ic floor and found to have EKG sinus bradycardia around 58 per minute. The patient denies any chest pain, shortness of breath, palpitation. No dizziness or syncope. She is taking propranolol 40 mg b. i.d. The patient also known to have hepatitis B and hepatitis C. The patient has no cardiac symptoms . The patient is ambulating. PHYSICAL EXAMINATION: VITAL SIGNS: Blood pressure 126/84, respirations 20, pulse 79, temperature 98.5. HEAD: Normocephalic. EYES: Pupils normal. Conjunctivae normal. NOSE AND THROAT: Normal. NECK: JVP low. Carotid equal. THORAX: AP diameter normal. LUNGS: Clear. CARDIOVASCULAR: S1, S2. ABDOMEN: Soft, no tenderness, no organomegaly. EXTREMITIES: No clubbing, no cyanosis. LABORATORY DATA: WBC 9.0, hemoglobin 14.4, hematocrit 39.9, platelet 290. Sodium 144, potassium 3.6 , BUN 23, creatinine 0.7, random glucose 115. Calcium 9.9, phosphorus 3.1, albumin 1.7. Yesterday, patient had hypokalemia, which has been corrected. DIAGNOSES: Hypertension, bradycardia on EKG related to Inderal therapy, alcohol abuse, history of he patitis B, hepatitis C, tobacco abuse, psychosis, hypertension. The patient's hypokalemia and hypoma gnesemia have been corrected. PLAN: The patient's electrolyte imbalance has been corrected and the patient, clinically cardiac sta tus is stable. Continue present therapy. The patient's bradycardia on EKG was related to Inderal. The patient is on propranolol 40 mg b.i.d., folic acid 1 daily, mag oxide 400 mg b.i.d., thiamine 100 mg daily. We will continue present therapy. We will follow with you. Yohan Bateman MD cc: [id number] TT: 08/03/2016 12:42:50 Confirmation # [id number] Dictation # [id number] en
[2016-08-03] MEDS: DiphenhydrAMINE 12.5 mg/5 ml LIQ UD (5 ml) PO SCH ×2 (13:44→21:41)
[2016-08-03] MEDS: Multivitamin Therapeutic Tab PO SCH (13:47)
[2016-08-03] MEDS: Magnesium Oxide 400 mg Tab UD PO SCH (13:48)
--- NOTE | 2016-08-03 16:09 | PCM.PYCHPN ---
Psychiatric Progress Note - Psychiatric Progress Note Patient seen today, length of contact: 30 minutes Patient Chief Complaint: "you need to let me go, I need to go back to work in [place], I'm here in [employer] , would do you mean? My son is arrested, I need to go" off note patient is disoriented, pt's son is not arrested, patient also has feeling that she is admitted in the hospital for past 2 weeks, pt is in the hospital for the past three days. Problems Identified/Issues Discussed: Suicide/ homicide prevention, past psychiatric h/o, current psychiatric symptoms , medical problems, risk/benefits and alternatives of medications, medications compliance, coping strategies, substance abuse h/o, relapse prevention, importance of follow up with psychiatrist and therapist, discharge plan. Medical Problems: alcohol abuse electrolyte dysbalance Diagnostic Results: 07/31/16 09:50 08/02/16 06:00 Lab Results 08/02/16 06:00: Sodium 145, Potassium 3.1 L, Chloride 114 H, Carbon Dioxide 21, Anion Gap 13, BUN 18, Creatinine 0.7, Est GFR ( Amer) > 60, Est GFR (Non- Af Amer) > 60, Random Glucose 111 H, Calcium 9.6, Phosphorus 2.6, Magnesium 1.6 L 08/01/16 07:35: RPR Nonreactive 08/01/16 07:00: Triglycerides 128, Cholesterol 170, LDL Cholesterol Direct 91, HDL Cholesterol 53 08/01/16 07:00: Free T4 1.48, TSH 3rd Generation 0.88 07/31/16 17:00: Potassium 3.4 L 07/31/16 09:50: Salicylates < 1 L, Acetaminophen < 10.0 L 07/31/16 09:50: Urine Opiates Screen Negative, Urine Methadone Screen Negative, Ur Barbiturates Screen Negative, Ur Phencyclidine Scrn Negative, Ur Amphetamines Screen Negative, U Benzodiazepines Scrn Negative, U Oth Cocaine Metabols Negative, U Cannabinoids Screen Negative 07/31/16 09:50: Sodium 138, Potassium 2.5 L* D, Chloride 105, Carbon Dioxide 22 , Anion Gap 14, BUN 11, Creatinine 0.8, Est GFR ( Amer) > 60, Est GFR ( Non-Af Amer) > 60, Random Glucose 83, Calcium 9.5, Total Bilirubin 0.4, AST 24, ALT 36, Alkaline Phosphatase 69, Troponin I < 0.01, Total Protein 6.6, Albumin 4.0, Globulin 2.6, Albumin/Globulin Ratio 1.5 07/31/16 09:50: Urine Color Light yellow, Urine Appearance Sl cloudy, Urine pH 6.5, Ur Specific [place] >= 1.030, Urine Protein 30 H, Urine Glucose (UA) Negative, Urine Ketones 15 H, Urine Blood Negative, Urine Nitrate Negative, Urine Bilirubin Small H, Urine Urobilinogen 0.2, Ur Leukocyte Esterase Negative , Urine RBC 0 - 2, Urine WBC 0 - 2, Ur Epithelial Cells 1 - 3, Urine Bacteria Few 07/31/16 09:50: PT 11.2, INR 1.04, APTT 24.4 07/31/16 09:50: WBC 9.0, RBC 4.73, Hgb 14.4, Hct 39.9, MCV 84.4, MCH 30.4, MCHC 36.1, RDW 14.0, Plt Count 290, MPV 11.4 H, Gran % 77.5 H, Lymph % (Auto) 14.5 L , [place] % (Auto) 7.8 H, Eos % (Auto) 0.1 L, Baso % (Auto) 0.1, Gran # 6.97 H, Lymph # 1.3, [place] # 0.7 H, Eos # 0.0, Baso # 0.01 Vital Signs Temp Pulse Resp BP Pulse Ox 08/02/16 10:43 96 H 156/101 H 08/02/16 07:40 98.0 F 96 H 20 156/101 H 08/01/16 14:00 92 H 148/94 H 08/01/16 10:27 98.2 F 08/01/16 10:21 102 F H 08/01/16 10:08 102.0 F H 83 149/91 H 08/01/16 03:22 78 18 130/73 99 07/31/16 19:05 18 07/31/16 17:53 65 18 148/79 99 07/31/16 15:18 98.4 F 61 18 140/80 61 L 07/31/16 09:59 97.6 F 59 L 16 160/88 H 97 Temp Pulse Resp BP Pulse Ox 97.8 F 109 H 20 126/84 99 08/03/16 07:39 08/03/16 13:44 08/03/16 07:39 08/03/16 13:44 08/01/16 03:22 DSM 5 Symptoms Update: shortly patient is 61 years old female, [place] descent, was brought in by her son for evaluation of disorganized, psychotic behavior, patient also has history of alcohol use disorder, withdrawal symptoms cannot be excluded, patient lives alone, has history of depression, patient alsohas history of alcohol addiction, patient needs further evaluation and stabilization on medications adjustment. Patient was seen and examined today at the treatment team meeting. Patient presented to have acceptable personal hygiene, good ADLs. patient is German speaking and this expert medical writer utilized TV translation services to interview pt. 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 of note SW spoke to pt's son, he is not arrested. Pt's son said pt has tendency of taking more meds than it was prescribed, pt would use meds for two weeks then she would substitute meds for alcohol. Pt was at her baseline of functioning last Saturday, on Saturday pt presented to be disorganized, was talking to people which were not existing, that is why pt was brought in for evaluation. pt is still delusional, emotionally labile, was crying, then giggling inappropriately. risperdal was started yesterday, no edema, will increase it today. as per staff pt did not sleep last night, but fall asleep at am. Impression psychosis NOS r/o MDD with psychosis r/o delirium due to alcohol withdrawals alcohol abuse, dependence r/o bipolar (pt was irritable, pressured speech, was not sleeping) pharmacy was called patient was on following medications Klonopin 1 mg 3 times a day last fill in June 28 Tramadol 50 mg 2 tabs 3 times a day last field in June 28 Lexapro 10 mg at the nighttime last field in June 19 Wellbutrin extended-release 300 mg daily field in June 09 Vicoprofen 200 mg over 7.5 mg every 4 hours last field in 07/19 Medication Change: Yes (Thorazine was discontinued, Risperdal started.) Medical Record Reviewed: Yes Consults ordered or reviewed: medical consult appreciated, discussed with PMD yesterday Mental Status Examination - Cognitive Function Orientation: Person Attention: Poor Concentration: Poor Association: Loose Fund of Knowledge: Poor - Mood Mood: Depressed, Anxious - Affect Affect: Broad (at times inapropriate, pt was having angry outbursts) - Speech Speech: Pressured - Formal Thought Process Formal Thought Process: Hallucinations, Delusions, Paranoia, Loosening of associations, Flight of ideas, Circumstantial - Suicidal Ideation Suicidal Ideation: No - Homicidal Ideation Homicidal Ideation: No Goal/Treatment Plan - Goal/Treatment Plan Need for Continued Stay: Remain at risks for inpatient hospitalization, Severe depression anxiety, Discharge may exacerbated symptoms, Severe functional impairment Progress Toward Problem(s) and Goals/Treatment Plan: milieu, structure, supportive therapy Ativan be discontinued Librium 50 mg 3 times a day for possible withdrawal symptoms, plan to taper that down Multivitamins, thiamine, folic acid Vital signs needs to be checked on regular basis Seroquel was discontinued because patient has lip swelling Thorazine was discontinued today because patient was not improving Risperdal 1 mg at the morning time and at the nighttime for psychosis Benadryl 25 mg at the morning time at the nighttime for EPS prevention collaterals from primary care physician appreciated family involvement one-to-one was discontinued SW evaluation Estimated Date of D/C: 08/08/16 (we'll monitor closely)
--- NOTE | 2016-08-04 08:52 | PCM.PYCHPN ---
Psychiatric Progress Note - Psychiatric Progress Note Patient seen today, length of contact: 25 minutes Problems Identified/Issues Discussed: I reviewed assessment and recent notes. I met with patient at bedside. Her grooming is adequate and she is superficially pleasant and cooperative. Patient reports that she is doing much better since admission and that she has been sleeping well. She also denies the presence of hallucinations. Nonetheless nursing reports indicate that she continues to wander the hallways, disorganized and talking to herself. Patient does not appear to be in any physical distress and she denies any new discomfort or pain. She is tolerating her medications and reports that she slept well last night. There were no behavioral issues overnight. Diagnostic Results: psychosis NOS r/o MDD with psychosis r/o delirium due to alcohol withdrawals alcohol abuse, dependence r/o bipolar (pt was irritable, pressured speech, was not sleeping) Medication Change: No (Thorazine was discontinued, Risperdal started, librium decreased.) Medical Record Reviewed: Yes Mental Status Examination - Cognitive Function Orientation: Person Attention: Poor Concentration: Poor Association: Loose Fund of Knowledge: Poor - Mood Mood: Depressed ("better"), Anxious - Affect Affect: Broad (at times inapropriate, pt was having angry outbursts) - Speech Speech: Pressured - Formal Thought Process Formal Thought Process: Hallucinations, Delusions, Paranoia, Loosening of associations, Flight of ideas, Circumstantial - Suicidal Ideation Suicidal Ideation: No - Homicidal Ideation Homicidal Ideation: No Goal/Treatment Plan - Goal/Treatment Plan Need for Continued Stay: Remain at risks for inpatient hospitalization, Severe depression anxiety, Discharge may exacerbated symptoms, Severe functional impairment Progress Toward Problem(s) and Goals/Treatment Plan: * c/w current tx and plan * Tapered librium to 50 mg po q12 today * No new weekend labs * Vitals reviewed and noted below: Selected Entries 08/02/16 08/02/16 08/03/16 15:47 17:50 07:35 Temperature 98.5 F Pulse Rate 79 79 79 Respiratory 20 Rate Blood Pressure 139/89 139/89 134/82 08/03/16 08/03/16 07:39 13:44 Temperature 97.8 F Pulse Rate Respiratory 20 Rate Blood Pressure 126/84 126/84 * Estimated Date of D/C: 08/08/16 (we'll monitor closely)
[2016-08-04] MEDS: Multivitamin Therapeutic Tab PO SCH (09:01)
[2016-08-04] MEDS: DiphenhydrAMINE 12.5 mg/5 ml LIQ UD (5 ml) PO SCH ×2 (10:06→21:02)
[2016-08-04] MEDS ORDERED: TRAMADOL HYDROCHLORIDE 50 MG PO PRN (12:16)
--- NOTE | 2016-08-04 14:35 | CARD ---
APPROVED REPORT EXAM: Two-dimensional and M-mode echocardiogram with Doppler and color Doppler. 2D DIMENSIONS IVSd1.2 (0.7-1.1cm)LVDd4.1 (3.9-5.9cm) PWd1.4 (0.7-1.1cm)LVDs2.9 (2.5-4.0cm) FS (%) 29.4 %LVEF (%)56.7 (>50%) M-Mode DIMENSIONS Left Atrium (MM)3.30 (2.5-4.0cm)Aortic Root3.00 (2.2-3.7cm) Aortic Cusp Exc.2.30 (1.5-2.0cm) Aortic Valve AoV Peak Pjkhxich584.0cm/sAoV VTI21.4cmAO Peak GR.5mmHg LVOT Peak Llugsuxj21.5cm/sLVOT VTI18.10cmAO Mean GR.3mmHg Mitral Valve MV E Xymstoms24.3cm/sMV A Mxarsqkr64.1cm/sE/A ratio0.8 TDI Lateral E' Peak V5.46cm/sMedial E' Peak V4.58cm/sE/Lateral E'9.4 E/Medial E'11.2 Tricuspid Valve TR Peak Aypphvcb649dq/sRAP JVPWIUHF74sxEtAS Peak Gr.20mmHg PIBP62sxGp LEFT VENTRICLE The left ventricle is normal size. There is borderline to mild concentric left ventricular hypertrophy. The left ventricular function is normal.EF-55-60% The left ventricular ejection fraction is within the normal range. There is normal LV segmental wall motion. Transmitral Doppler flow pattern is Grade III-reversible restrictive diastolic dysfunction. No left ventricle thrombus noted on this study. There is no ventricular septal defect visualized. There is no left ventricular aneurysm. There is no mass noted in the left ventricle. RIGHT VENTRICLE The right ventricle is normal size. There is normal right ventricular wall thickness. The right ventricular systolic function is normal. ATRIA The left atrium size is normal. The right atrium size is normal. The interatrial septum is intact with no evidence for an atrial septal defect. AORTIC VALVE The aortic valve is normal in structure. There is trace aortic regurgitation. There is no aortic valvular stenosis. There is no aortic valvular vegetation. MITRAL VALVE The mitral valve is thickened but opens well. Mitral regurgitation is trace. There is no mitral valve stenosis. There is no evidence of mitral valve prolapse. TRICUSPID VALVE The tricuspid valve leaflets are thickened , but open well. There is trace tricuspid regurgitation. There is no tricuspid valve stenosis. There is no tricuspid valve prolapse or vegetation. PULMONIC VALVE The pulmonary valve is normal in structure. GREAT VESSELS The aortic root is normal in size. The ascending aorta is normal in size. The pulmonary artery is normal. The IVC is normal in size and collapses >50% with inspiration. PERICARDIAL EFFUSION There is no pleural effusion. There is no pericardial effusion. <Conclusion> Normal Chamvber Size, EF-55-60% Trace MR/TR/AR RVSP-30mmofHg.
[2016-08-04] MEDS ORDERED: PROPRANOLOL HYDROCHLORIDE PO SCH (16:00)
--- NOTE | 2016-08-04 17:36 | CON ---
DATE: 08/04/2016 HISTORY OF PRESENT ILLNESS: The patient is a 61-year-old female who was admitted to the psychiatric department of the [facility] on for mental status changes and argelia tory hallucinations. The patient is seen and evaluated by Dr. Jerilyn Chaidez. She seems to be res ponding well with medication. When seen today, the patient is walking through the daly. She is plea ya. She is looking forward to discharge to home, however. She stated that her auditory hallucinat ions have decreased. They are not a problem now. She also stated that in the past her mother and he r maternal aunt also had auditory hallucinations and they did not require any treatment at all and do es not understand why she needs medication for this. She denies chest pain, shortness of breath, abd ominal pain. She does admit to chronic lower leg pain. A review of the chart shows in 05/2016 she u nderwent arterial Dopplers of the lower extremities and they were negative for peripheral vascular di sease. I feel her discomfort is basically due to muscle strain Yesterday's laboratory showed that h er potassium was corrected to 3.6, her BUN and creatinine are 23 and 0.7. This morning, her blood pr essure was 118/79, heart rate of 100 and she was afebrile. From a medical point of view, the patient remains stable. I have added tramadol to be taking 50 mg 3 times a day as needed for pain. We will continue to follow the patient closely. Dani Marroquin MD cc: [id number] TT: 08/04/2016 17:35:19 Confirmation # [id number] Dictation # [id number] [email or web address]
[2016-08-05] MEDS: Pantoprazole 40 mg EC Tab PO SCH (08:14)
[2016-08-05] MEDS: Multivitamin Therapeutic Tab PO SCH (08:16)
[2016-08-05] MEDS: DiphenhydrAMINE 12.5 mg/5 ml LIQ UD (5 ml) PO SCH ×2 (08:21→21:24)
--- NOTE | 2016-08-05 08:44 | PCM.PYCHPN ---
Psychiatric Progress Note - Psychiatric Progress Note Patient seen today, length of contact: 25 minutes Patient Chief Complaint: "much better" Problems Identified/Issues Discussed: I reviewed recent notes. I met with patient at bedside. Her grooming is adequate and she is superficially pleasant and cooperative. Patient reports that she is doing much better since admission and that she has been sleeping well. She also denies the presence of hallucinations. Tramadol was initiated for complaints of leg pain, with good effect yesterday. Patient does not appear to be in any physical distress and she denies any new discomfort or pain. She is tolerating her medications and again reports that she slept well last night. Nursing indicates she can be anxious and talkative however there were no reported observations of patient talking to her self on the unit in the last 24 hours. There were no behavioral issues overnight. Diagnostic Results: psychosis NOS r/o MDD with psychosis r/o delirium due to alcohol withdrawals alcohol abuse, dependence r/o bipolar (pt was irritable, pressured speech, was not sleeping) Medication Change: No ( ) Medical Record Reviewed: Yes (reports, notes, vitals, labs ) Mental Status Examination - Cognitive Function Orientation: Person Attention: Poor Concentration: Poor Association: Loose Fund of Knowledge: Poor - Mood Mood: Depressed ("better"), Anxious - Affect Affect: Broad (at times inapropriate, pt was having angry outbursts) - Speech Speech: Pressured - Formal Thought Process Formal Thought Process: Hallucinations (denied all weekend), Delusions, Paranoia , Loosening of associations, Flight of ideas, Circumstantial - Suicidal Ideation Suicidal Ideation: No - Homicidal Ideation Homicidal Ideation: No Goal/Treatment Plan - Goal/Treatment Plan Need for Continued Stay: Remain at risks for inpatient hospitalization, Severe depression anxiety, Discharge may exacerbated symptoms, Severe functional impairment Progress Toward Problem(s) and Goals/Treatment Plan: * c/w current tx and plan * Appreciate f/u by Dr. Marroquin on 08/04/16~addeded tramadol 50 mg po TID for pain * Reviewed echo results from 08/04/16 * Tapered librium to 50 mg po q12 on 08/04/16 * No new weekend labs * Vitals reviewed and noted below: Selected Entries 08/04/16 08/04/16 08/04/16 08:00 09:01 16:21 Temperature 97.3 F L Pulse Rate 100 H 100 H 86 Respiratory 20 Rate Blood Pressure 118/79 118/79 127/86 08/04/16 16:53 Temperature Pulse Rate 86 Respiratory Rate Blood Pressure 127/86 Estimated Date of D/C: 08/08/16 (we'll monitor closely)
--- NOTE | 2016-08-05 11:51 | PN ---
DATE: 08/05/2016 REASON FOR CONSULTATION AND FOLLOWUP: Hypertension, bradycardia on EKG, psychosis, alcohol abuse. BRIEF CLINICAL HISTORY: A 61-year-old female with past medical history significant for alcohol abuse , admitted to psychiatric floor, found to have sinus bradycardia. The patient was on beta-dany. Denies any chest pain, shortness of breath, or any palpitation. PHYSICAL EXAMINATION: VITAL SIGNS: Temperature afebrile, heart rate 86, blood pressure 127/86. HEENT: PERRLA. Extraocular muscles intact. NECK: Supple. No carotid bruits. No thyromegaly. CHEST: Clear to auscultation. HEART: S1, S2 regular. ABDOMEN: Soft. EXTREMITIES: Clubbing and cyanosis negative. LABORATORY DATA: Blood workup as follows: WBC 9, hemoglobin 14.____, hematocrit 39.9, platelet coun t 290. Chemistry shows sodium 14____, potassium 3.6, chloride 114, carbon dioxide 22, anion gap of 1 2, BUN ____, creatinine 0.7. The patient had echocardiography done yesterday that showed normal chamber ejection fraction 55-60%, trace mitral regurgitation, trace tricuspid regurgitation, trace ____, right ventricular systolic pre ssure 30 mmHg. IMPRESSION: Bradycardia secondary to beta-dany. No evidence of structural heart disease, history of alcohol abuse, psychosis, history of tobacco abuse, hepatitis C, hepatitis B. Monitor electrolyt es and supplement as needed. So far is stable yesterday. We will sign off. Glad to follow p.r.n. Thank you, Dr. Marroquin/Dr. Chaidez for providing the opportunity in taking care of the patient. Yohan Gentile MD cc: [id number] TT: 08/05/2016 11:51:28 Confirmation # [id number] Dictation # [id number] jn
[2016-08-06] MEDS: DiphenhydrAMINE 12.5 mg/5 ml LIQ UD (5 ml) PO SCH ×2 (08:30→21:45)
[2016-08-06] MEDS: Multivitamin Therapeutic Tab PO SCH (08:31)
[2016-08-06] MEDS: Pantoprazole 40 mg EC Tab PO SCH (08:31)
--- NOTE | 2016-08-06 09:00 | PCM.PYCHPN ---
Psychiatric Progress Note - Psychiatric Progress Note Patient seen today, length of contact: 25 minutes Patient Chief Complaint: "much better" Problems Identified/Issues Discussed: I reviewed recent notes and met with patient at bedside. Her grooming is adequate and she is superficially pleasant and cooperative. Affect is a little anxious with improved range. Patient reports that she is doing much better since admission and that she has been sleeping well. Staff notes seem to confirm this improvement; they noticed she appears more focused and organized. Patient also denies the presence of hallucinations but still has periods of confusion. There were no reported observations of patient talking to herself on the unit in the last 48 hours. Patient does not appear to be in any physical distress and she denies any new discomfort or pain. Tramadol was initiated this weekend for complaints of leg pain, with good effect. She is tolerating her medications. There were no major behavioral issues over the holiday weekend. Diagnostic Results: psychosis NOS r/o MDD with psychosis r/o delirium due to alcohol withdrawals alcohol abuse, dependence r/o bipolar (pt was irritable, pressured speech, was not sleeping) Medication Change: No ( ) Medical Record Reviewed: Yes (reports, notes, vitals, labs ) Mental Status Examination - Cognitive Function Orientation: Person Attention: Poor Concentration: Poor Association: Loose Fund of Knowledge: Poor - Mood Mood: Depressed ("better"), Anxious - Affect Affect: Broad (at times inapropriate, pt was having angry outbursts) - Speech Speech: Pressured (improving) - Formal Thought Process Formal Thought Process: Hallucinations (denied all weekend), Delusions, Paranoia , Loosening of associations, Flight of ideas (improving), Circumstantial - Suicidal Ideation Suicidal Ideation: No - Homicidal Ideation Homicidal Ideation: No Goal/Treatment Plan - Goal/Treatment Plan Need for Continued Stay: Remain at risks for inpatient hospitalization, Severe depression anxiety, Discharge may exacerbated symptoms, Severe functional impairment Progress Toward Problem(s) and Goals/Treatment Plan: * c/w current tx and plan * Appreciate f/u by Dr. Marroquin on 08/04/16~addeded tramadol 50 mg po TID for pain * Appreciate f/u by Dr. Gentile on 08/05/16~Reviewed echo results from 08/04/16. IMPRESSION:Bradycardia secondary to Beta dany. No new recommendations, signed off. * Tapered librium to 50 mg po q12 on 08/04/16 and then to 50 mg qhs on 08/06/16 * No new weekend labs * Vitals reviewed and noted below: Selected Entries 08/06/16 08/06/16 07:31 08:31 Temperature 97.8 F Pulse Rate 77 77 Respiratory 19 Rate Blood Pressure 117/77 117/77 Estimated Date of D/C: 08/08/16 (we'll monitor closely)
--- NOTE | 2016-08-07 08:26 | PN ---
DATE: 08/04/2016 REASON FOR CONSULTATION AND FOLLOWUP: Hypertension, bradycardia on EKG, psychosis, alcohol abuse. BRIEF CLINICAL HISTORY: A 61-year-old female with a past medical history of alcohol abuse, admitted secondary found to have tachycardia, found to have sinus bradycardia at 50, so cardiology consult was called. The patient denies any chest pain, shortness of breath, any palpitation. No history of diz ziness, syncope. The patient was taking ____ . b.i.d. The patient known to have hepatitis B and hepa titis C. No cardiac symptoms. PHYSICAL EXAMINATION: VITAL SIGNS: Temperature afebrile, heart rate 100, blood pressure 118/79. HEENT: PERRLA. Extraocular muscles intact. NECK: Supple. No carotid bruits. No thyromegaly. CHEST: Clear to auscultation. HEART: S1, S2 regular. ABDOMEN: Soft. EXTREMITIES: Clubbing and cyanosis negative. LABORATORY DATA: Blood workup as follows: WBC 9, hemoglobin 14.4, hematocrit 39.9, platelet count 2 90. Chemistry shows sodium 140, potassium 3.6, chloride 114, carbon dioxide 22, anion gap of 12, BUN ____, creatinine 0.7. IMPRESSION: Hypokalemia, bradycardia secondary to beta dany, alcohol abuse, history of a hepatiti s B and C, tobacco abuse, psychosis, hypertension, hyperkalemia and magnesium. RECOMMENDATION: Monitor electrolytes closely. Supplement as needed. As mentioned bradycardias was secondary to propranolol. Will get an echo to rule out any structural heart disease. We will follow with you. Thank you, ____, for providing the opportunity in taking care of the patient. We will follow. I f echo remains stable, will sign off the case and glad to follow p.r.n. Yohan Gentile MD cc: [id number] TT: 08/04/2016 16:54:11 Confirmation # [id number] Dictation # [id number] [email or web address]
[2016-08-07] MEDS: DiphenhydrAMINE 12.5 mg/5 ml LIQ UD (5 ml) PO SCH ×2 (08:56→21:14)
[2016-08-07] MEDS: Pantoprazole 40 mg EC Tab PO SCH (08:57)
[2016-08-07] MEDS: Multivitamin Therapeutic Tab PO SCH (08:57)
[2016-08-07 14:32] LABS: PH,URINE 6.5 (4.7-8.0); URINE BILIRUBIN NEGATIVE (NEGATIVE); URINE BLOOD NEGATIVE (NEGATIVE); URINE GLUCOSE (UA) NEGATIVE (NEGATIVE); URINE KETONE NEGATIVE (NEGATIVE); URINE LEUKOCYTE ESTERASE TRACE Leu/uL (NEGATIVE); URINE PROTEIN NEGATIVE mg/dL (<30 mg/dL); URINE UROBILINOGEN 0.2 E.U./dL (<1 E.U./dL)
[2016-08-07 14:40] LABS: URINE APPEARANCE CLEAR (CLEAR); URINE COLOR YELLOW (YELLOW)
[2016-08-07 14:53] LABS: URINE BACTERIA MOD (NEG); URINE RBC 0 - 2 /hpf (0-2)
--- NOTE | 2016-08-07 16:09 | PCM.PYCHPN ---
Psychiatric Progress Note - Psychiatric Progress Note Patient seen today, length of contact: 30 minutes Patient Chief Complaint: "Dr. I feel good, but I cannot sleep, I am not sure what do I need to do with that cup" Problems Identified/Issues Discussed: Suicide/ homicide prevention, past psychiatric h/o, current psychiatric symptoms , medical problems, risk/benefits and alternatives of medications, medications compliance, coping strategies, substance abuse h/o, relapse prevention, importance of follow up with psychiatrist and therapist, discharge plan. Medical Problems: alcohol abuse electrolyte dysbalance ?UTI Diagnostic Results: 07/31/16 09:50 08/02/16 06:00 Lab Results 08/02/16 06:00: Sodium 145, Potassium 3.1 L, Chloride 114 H, Carbon Dioxide 21, Anion Gap 13, BUN 18, Creatinine 0.7, Est GFR ( Amer) > 60, Est GFR (Non- Af Amer) > 60, Random Glucose 111 H, Calcium 9.6, Phosphorus 2.6, Magnesium 1.6 L 08/01/16 07:35: RPR Nonreactive 08/01/16 07:00: Triglycerides 128, Cholesterol 170, LDL Cholesterol Direct 91, HDL Cholesterol 53 08/01/16 07:00: Free T4 1.48, TSH 3rd Generation 0.88 07/31/16 17:00: Potassium 3.4 L 07/31/16 09:50: Salicylates < 1 L, Acetaminophen < 10.0 L 07/31/16 09:50: Urine Opiates Screen Negative, Urine Methadone Screen Negative, Ur Barbiturates Screen Negative, Ur Phencyclidine Scrn Negative, Ur Amphetamines Screen Negative, U Benzodiazepines Scrn Negative, U Oth Cocaine Metabols Negative, U Cannabinoids Screen Negative 07/31/16 09:50: Sodium 138, Potassium 2.5 L* D, Chloride 105, Carbon Dioxide 22 , Anion Gap 14, BUN 11, Creatinine 0.8, Est GFR ( Amer) > 60, Est GFR ( Non-Af Amer) > 60, Random Glucose 83, Calcium 9.5, Total Bilirubin 0.4, AST 24, ALT 36, Alkaline Phosphatase 69, Troponin I < 0.01, Total Protein 6.6, Albumin 4.0, Globulin 2.6, Albumin/Globulin Ratio 1.5 07/31/16 09:50: Urine Color Light yellow, Urine Appearance Sl cloudy, Urine pH 6.5, Ur Specific [place] >= 1.030, Urine Protein 30 H, Urine Glucose (UA) Negative, Urine Ketones 15 H, Urine Blood Negative, Urine Nitrate Negative, Urine Bilirubin Small H, Urine Urobilinogen 0.2, Ur Leukocyte Esterase Negative , Urine RBC 0 - 2, Urine WBC 0 - 2, Ur Epithelial Cells 1 - 3, Urine Bacteria Few 07/31/16 09:50: PT 11.2, INR 1.04, APTT 24.4 07/31/16 09:50: WBC 9.0, RBC 4.73, Hgb 14.4, Hct 39.9, MCV 84.4, MCH 30.4, MCHC 36.1, RDW 14.0, Plt Count 290, MPV 11.4 H, Gran % 77.5 H, Lymph % (Auto) 14.5 L , [place] % (Auto) 7.8 H, Eos % (Auto) 0.1 L, Baso % (Auto) 0.1, Gran # 6.97 H, Lymph # 1.3, [place] # 0.7 H, Eos # 0.0, Baso # 0.01 Vital Signs Temp Pulse Resp BP Pulse Ox 08/02/16 10:43 96 H 156/101 H 08/02/16 07:40 98.0 F 96 H 20 156/101 H 08/01/16 14:00 92 H 148/94 H 08/01/16 10:27 98.2 F 08/01/16 10:21 102 F H 08/01/16 10:08 102.0 F H 83 149/91 H 08/01/16 03:22 78 18 130/73 99 07/31/16 19:05 18 07/31/16 17:53 65 18 148/79 99 07/31/16 15:18 98.4 F 61 18 140/80 61 L 07/31/16 09:59 97.6 F 59 L 16 160/88 H 97 Temp Pulse Resp BP Pulse Ox 97.8 F 109 H 20 126/84 99 08/03/16 07:39 08/03/16 13:44 08/03/16 07:39 08/03/16 13:44 08/01/16 03:22 Laboratory Last Values WBC 9.0 10^3/ul (4.5-11.0) 07/31/16 09:50 RBC 4.73 10^6/uL (3.5-6.1) 07/31/16 09:50 Hgb 14.4 gm/dL (12.0-16.0) 07/31/16 09:50 Hct 39.9 % (36.0-48.0) 07/31/16 09:50 MCV 84.4 fL (80.0-105.0) 07/31/16 09:50 MCH 30.4 pg (25.0-35.0) 07/31/16 09:50 MCHC 36.1 g/dl (31.0-37.0) 07/31/16 09:50 RDW 14.0 % (11.5-14.5) 07/31/16 09:50 Plt Count 290 10^3/uL (120.0-450.0) 07/31/16 09:50 MPV 11.4 fl (7.0-11.0) H 07/31/16 09:50 Gran % 77.5 % (50.0-68.0) H 07/31/16 09:50 Lymph % (Auto) 14.5 % (22.0-35.0) L 07/31/16 09:50 [place] % (Auto) 7.8 % (1.0-6.0) H 07/31/16 09:50 Eos % (Auto) 0.1 % (1.5-5.0) L 07/31/16 09:50 Baso % (Auto) 0.1 % (0.0-3.0) 07/31/16 09:50 Gran # 6.97 (1.4-6.5) H 07/31/16 09:50 Lymph # 1.3 (1.2-3.4) 07/31/16 09:50 [place] # 0.7 (0.1-0.6) H 07/31/16 09:50 Eos # 0.0 (0.0-0.7) 07/31/16 09:50 Baso # 0.01 K/mm3 (0.0-2.0) 07/31/16 09:50 PT 11.2 Seconds (9.9-11.8) 07/31/16 09:50 INR 1.04 (0.93-1.08) 07/31/16 09:50 APTT 24.4 Seconds (23.7-30.8) 07/31/16 09:50 Sodium 144 mmol/L (132-148) 08/03/16 07:10 Potassium 3.6 mmol/L (3.6-5.0) 08/03/16 07:10 Chloride 114 mmol/L (95-110) H 08/03/16 07:10 Carbon Dioxide 22 mmol/L (21-33) 08/03/16 07:10 Anion Gap 12 (10-20) 08/03/16 07:10 BUN 23 mg/dL (7-21) H 08/03/16 07:10 Creatinine 0.7 mg/dL (0.5-1.4) 08/03/16 07:10 Est GFR ( Amer) > 60 08/03/16 07:10 Est GFR (Non-Af Amer) > 60 08/03/16 07:10 Random Glucose 115 mg/dL (70-110) H 08/03/16 07:10 Calcium 9.9 mg/dL (8.4-10.5) 08/03/16 07:10 Phosphorus 3.1 mg/dL (2.5-4.5) 08/03/16 07:10 Magnesium 1.7 mg/dL (1.7-2.2) 08/03/16 07:10 Total Bilirubin 0.4 mg/dL (0.2-1.3) 07/31/16 09:50 AST 24 U/L (15-39) 07/31/16 09:50 ALT 36 U/L (7-56) 07/31/16 09:50 Alkaline Phosphatase 69 U/L (38-133) 07/31/16 09:50 Troponin I < 0.01 ng/mL 07/31/16 09:50 Total Protein 6.6 g/dL (5.8-8.3) 07/31/16 09:50 Albumin 4.0 g/dL (3.0-4.8) 07/31/16 09:50 Globulin 2.6 gm/dL 07/31/16 09:50 Albumin/Globulin Ratio 1.5 (1.1-1.8) 07/31/16 09:50 Triglycerides 128 mg/dL (35-160) 08/01/16 07:00 Cholesterol 170 mg/dL (130-200) 08/01/16 07:00 LDL Cholesterol Direct 91 mg/dL (0-129) 08/01/16 07:00 HDL Cholesterol 53 mg/dL (29-60) 08/01/16 07:00 Free T4 1.48 ng/dL (0.78-2.19) 08/01/16 07:00 TSH 3rd Generation 0.88 mIU/mL (0.46-4.68) 08/01/16 07:00 Urine Color Yellow (YELLOW) 08/07/16 14:11 Urine Appearance Clear (CLEAR) 08/07/16 14:11 Urine pH 6.5 (4.7-8.0) 08/07/16 14:11 Ur Specific [place] 1.010 (1.005-1.035) 08/07/16 14:11 Urine Protein Negative mg/dL (<30 mg/dL) 08/07/16 14:11 Urine Glucose (UA) Negative mg/dL (NEGATIVE) 08/07/16 14:11 Urine Ketones Negative mg/dL (NEGATIVE) 08/07/16 14:11 Urine Blood Negative (NEGATIVE) 08/07/16 14:11 Urine Nitrate Negative (NEGATIVE) 08/07/16 14:11 Urine Bilirubin Negative (NEGATIVE) 08/07/16 14:11 Urine Urobilinogen 0.2 E.U./dL (<1 E.U./dL) 08/07/16 14:11 Ur Leukocyte Esterase Trace Connie/uL (NEGATIVE) H 08/07/16 14:11 Urine RBC 0 - 2 /hpf (0-2) 08/07/16 14:11 Urine WBC 1 - 3 /hpf (0-6) 08/07/16 14:11 Ur Epithelial Cells 4 - 5 /hpf (0-5) 08/07/16 14:11 Urine Bacteria Mod (NEG) 08/07/16 14:11 Salicylates < 1 mg/dL (2.0-20.0) L 07/31/16 09:50 Urine Opiates Screen Negative (NEGATIVE) 07/31/16 09:50 Urine Methadone Screen Negative (NEGATIVE) 07/31/16 09:50 Acetaminophen < 10.0 ug/ml (10.0-20.0) L 07/31/16 09:50 Ur Barbiturates Screen Negative (NEGATIVE) 07/31/16 09:50 Ur Phencyclidine Scrn Negative (NEGATIVE) 07/31/16 09:50 Ur Amphetamines Screen Negative (NEGATIVE) 07/31/16 09:50 U Benzodiazepines Scrn Negative (NEGATIVE) 07/31/16 09:50 U Oth Cocaine Metabols Negative (NEGATIVE) 07/31/16 09:50 U Cannabinoids Screen Negative (NEGATIVE) 07/31/16 09:50 RPR Nonreactive (NONREACTIVE) 08/01/16 07:35 Temp Pulse Resp BP Pulse Ox 97.4 F L 79 18 116/77 99 08/07/16 08:10 08/07/16 08:58 08/07/16 08:10 08/07/16 08:58 08/01/16 03:22 DSM 5 Symptoms Update: shortly patient is 61 years old female, [place] descent, was brought in by her son for evaluation of disorganized, psychotic behavior, patient also has history of alcohol use disorder, withdrawal symptoms cannot be excluded, patient lives alone, has history of depression, patient alsohas history of alcohol addiction, patient needs further evaluation and stabilization on medications adjustment. Patient was seen and examined today at her room, pt still has difficulties to stay focused, pt was given urine cup and asked to give UA, pt was not sure what to do despite the fact that RN explanation. Patient presented to have acceptable personal hygiene, good ADLs. pt can communicate in Lebanese today. Obviously some positive changes with the presentation, speech is less pressured , today was overproductive, thought processes circumstantial concentration is slightly better, but patient still present to be disorganized, psychotic, pt is still delusional, affect is more appropriate. risperdal was increased today. as per staff pt did not sleep last night, but fall asleep at am. Impression psychosis NOS r/o MDD with psychosis r/o delirium due to alcohol withdrawals alcohol abuse, dependence r/o bipolar (pt was irritable, pressured speech, was not sleeping) Medication Change: Yes (Risperdal increased) Medical Record Reviewed: Yes (reports, notes, vitals, labs ) Consults ordered or reviewed: medical consult appreciated, discussed with PMD last week Mental Status Examination - Cognitive Function Orientation: Person Attention: Poor Concentration: Poor Association: Loose Fund of Knowledge: Poor - Mood Mood: Depressed ("better"), Anxious - Affect Affect: Broad (at times inapropriate, pt was having angry outbursts) - Speech Speech: Pressured (improving) - Formal Thought Process Formal Thought Process: Hallucinations (denied all weekend), Delusions, Paranoia , Loosening of associations, Flight of ideas (improving), Circumstantial - Suicidal Ideation Suicidal Ideation: No - Homicidal Ideation Homicidal Ideation: No Goal/Treatment Plan - Goal/Treatment Plan Need for Continued Stay: Remain at risks for inpatient hospitalization, Severe depression anxiety, Discharge may exacerbated symptoms, Severe functional impairment Progress Toward Problem(s) and Goals/Treatment Plan: milieu, structure, supportive therapy Ativan be discontinued Librium 50 mg hs for alcohol withdrawals Multivitamins, thiamine, folic acid Vital signs needs to be checked on regular basis Seroquel was discontinued because patient has lip swelling Thorazine was discontinued today because patient was not improving Risperdal 1 mg at the morning time and 2mg at the nighttime for psychosis lexapro 10mg po daily for depression and anxiety Benadryl 25 mg at the morning time at the nighttime for EPS prevention collaterals from primary care physician appreciated family involvement, will consider to have a family meeting SW evaluation Estimated Date of D/C: 08/10/16 (we'll monitor closely)
[2016-08-08] MEDS: DiphenhydrAMINE 12.5 mg/5 ml LIQ UD (5 ml) PO SCH ×2 (08:09→21:01)
[2016-08-08] MEDS: Multivitamin Therapeutic Tab PO SCH (08:10)
[2016-08-08] MEDS: Pantoprazole 40 mg EC Tab PO SCH (08:10)
--- NOTE | 2016-08-08 11:23 | PN ---
DATE: 08/08/2016 The patient in room 513, bed 1. REASON FOR CONSULTATION AND FOLLOWUP: Hypertension, bradycardia on EKG, psychosis, alcohol abuse. HISTORY OF PRESENT ILLNESS: The patient is a 61-year-old female with past medical history significan t for alcohol abuse, admitted to psych floor for psychosis and alcohol abuse, found to have sinus bra dycardia. The patient was on beta dany. The patient denies any chest pain, shortness of breath, dizziness, or palpitation. The patient is ambulating without any symptoms. PHYSICAL EXAMINATION: VITAL SIGNS: Blood pressure is 110/73, respirations 18, pulse 78, temperature 97.6. HEAD: Normocephalic. EYES: Pupils normal. Conjunctivae are normal. NOSE AND THROAT: Normal. NECK: JVP low. Carotid equal. THORAX: AP diameter normal. LUNGS: Clear. CARDIOVASCULAR: S1, S2. ABDOMEN: Soft. No tenderness, no organomegaly. EXTREMITIES: No clubbing, no cyanosis. LABORATORY DATA: Done on 07/31/2016 and 08/03/2016 and they are reported in our previous progress no sherman. DIAGNOSES: Bradycardia secondary to beta blockers, alcohol abuse, psychosis, tobacco abuse, hepatiti s C, hepatitis B. Continue present therapy. Yohan Bateman MD cc: [id number] TT: 08/08/2016 11:22:43 Confirmation # [id number] Dictation # [id number] [email or web address]
--- NOTE | 2016-08-08 12:43 | CON ---
DATE: 08/08/2016 The patient is a 61-year-old female who was admitted to the [facility] on 07/31 with auditory hallucinations and mental status changes and major depression. She is being foll owed in the psychiatric department 5B by Dr. Jerilyn Chaidez and is improving. Yesterday, the patie nt complained of left flank pain. Feeling that this was her kidneys bothering her, a urinalysis was ordered and the UA is essentially negative. I explained to the patient that in spite of the fact arben t she had a pyelonephritis many, many years ago, her problems now are more likely to be from strain o f muscles covering the kidneys rather than actual kidney pain. PHYSICAL EXAMINATION: ABDOMEN: Soft and nontender. There was no suprapubic tenderness. No CVA tenderness. LUNGS: Clear to auscultation. HEART: Regular with no murmurs appreciated. VITAL SIGNS: Stable. NEUROLOGIC: The patient was in good spirits today. She denied any further auditory hallucinations. From medical point of view, the patient is stable. She may continue taking tramadol 50 mg 3 times a day as needed for pain. The patient is looking forward to discharge to home in the next day or 2. CURRENT MEDICATIONS: Include Benadryl 25 mg daily and at bedtime, folic acid 1 mg daily, Inderal 40 mg twice a day, Lexapro 10 mg at bedtime, Librium 50 mg at bedtime, Maalox as needed for GI upset, Pr otonix 40 mg in the morning, Risperdal 1 mg oral solution daily and 2 mg oral solution at bedtime. S he is also taking a multivitamin, Tylenol as needed for pain, Ultram 50 mg 3 times a day as mentioned above for pain, and thiamine 100 mg daily. Dani Marroquin MD cc: [id number] TT: 08/08/2016 12:42:49 Confirmation # [id number] Dictation # [id number] [email or web address]
--- NOTE | 2016-08-08 15:46 | PCM.PYCHPN ---
Psychiatric Progress Note - Psychiatric Progress Note Patient seen today, length of contact: 30 minutes Patient Chief Complaint: "I feel fine..." Problems Identified/Issues Discussed: Suicide/ homicide prevention, past psychiatric h/o, current psychiatric symptoms , medical problems, risk/benefits and alternatives of medications, medications compliance, coping strategies, substance abuse h/o, relapse prevention, importance of follow up with psychiatrist and therapist, discharge plan. Medical Problems: alcohol abuse electrolyte dysbalance ?UTI Diagnostic Results: 07/31/16 09:50 08/02/16 06:00 Lab Results 08/02/16 06:00: Sodium 145, Potassium 3.1 L, Chloride 114 H, Carbon Dioxide 21, Anion Gap 13, BUN 18, Creatinine 0.7, Est GFR ( Amer) > 60, Est GFR (Non- Af Amer) > 60, Random Glucose 111 H, Calcium 9.6, Phosphorus 2.6, Magnesium 1.6 L 08/01/16 07:35: RPR Nonreactive 08/01/16 07:00: Triglycerides 128, Cholesterol 170, LDL Cholesterol Direct 91, HDL Cholesterol 53 08/01/16 07:00: Free T4 1.48, TSH 3rd Generation 0.88 07/31/16 17:00: Potassium 3.4 L 07/31/16 09:50: Salicylates < 1 L, Acetaminophen < 10.0 L 07/31/16 09:50: Urine Opiates Screen Negative, Urine Methadone Screen Negative, Ur Barbiturates Screen Negative, Ur Phencyclidine Scrn Negative, Ur Amphetamines Screen Negative, U Benzodiazepines Scrn Negative, U Oth Cocaine Metabols Negative, U Cannabinoids Screen Negative 07/31/16 09:50: Sodium 138, Potassium 2.5 L* D, Chloride 105, Carbon Dioxide 22 , Anion Gap 14, BUN 11, Creatinine 0.8, Est GFR ( Amer) > 60, Est GFR ( Non-Af Amer) > 60, Random Glucose 83, Calcium 9.5, Total Bilirubin 0.4, AST 24, ALT 36, Alkaline Phosphatase 69, Troponin I < 0.01, Total Protein 6.6, Albumin 4.0, Globulin 2.6, Albumin/Globulin Ratio 1.5 07/31/16 09:50: Urine Color Light yellow, Urine Appearance Sl cloudy, Urine pH 6.5, Ur Specific [place] >= 1.030, Urine Protein 30 H, Urine Glucose (UA) Negative, Urine Ketones 15 H, Urine Blood Negative, Urine Nitrate Negative, Urine Bilirubin Small H, Urine Urobilinogen 0.2, Ur Leukocyte Esterase Negative , Urine RBC 0 - 2, Urine WBC 0 - 2, Ur Epithelial Cells 1 - 3, Urine Bacteria Few 07/31/16 09:50: PT 11.2, INR 1.04, APTT 24.4 07/31/16 09:50: WBC 9.0, RBC 4.73, Hgb 14.4, Hct 39.9, MCV 84.4, MCH 30.4, MCHC 36.1, RDW 14.0, Plt Count 290, MPV 11.4 H, Gran % 77.5 H, Lymph % (Auto) 14.5 L , Cole % (Auto) 7.8 H, Eos % (Auto) 0.1 L, Baso % (Auto) 0.1, Gran # 6.97 H, Lymph # 1.3, Cole # 0.7 H, Eos # 0.0, Baso # 0.01 Vital Signs Temp Pulse Resp BP Pulse Ox 08/02/16 10:43 96 H 156/101 H 08/02/16 07:40 98.0 F 96 H 20 156/101 H 08/01/16 14:00 92 H 148/94 H 08/01/16 10:27 98.2 F 08/01/16 10:21 102 F H 08/01/16 10:08 102.0 F H 83 149/91 H 08/01/16 03:22 78 18 130/73 99 07/31/16 19:05 18 07/31/16 17:53 65 18 148/79 99 07/31/16 15:18 98.4 F 61 18 140/80 61 L 07/31/16 09:59 97.6 F 59 L 16 160/88 H 97 Temp Pulse Resp BP Pulse Ox 97.8 F 109 H 20 126/84 99 08/03/16 07:39 08/03/16 13:44 08/03/16 07:39 08/03/16 13:44 08/01/16 03:22 Laboratory Last Values WBC 9.0 10^3/ul (4.5-11.0) 07/31/16 09:50 RBC 4.73 10^6/uL (3.5-6.1) 07/31/16 09:50 Hgb 14.4 gm/dL (12.0-16.0) 07/31/16 09:50 Hct 39.9 % (36.0-48.0) 07/31/16 09:50 MCV 84.4 fL (80.0-105.0) 07/31/16 09:50 MCH 30.4 pg (25.0-35.0) 07/31/16 09:50 MCHC 36.1 g/dl (31.0-37.0) 07/31/16 09:50 RDW 14.0 % (11.5-14.5) 07/31/16 09:50 Plt Count 290 10^3/uL (120.0-450.0) 07/31/16 09:50 MPV 11.4 fl (7.0-11.0) H 07/31/16 09:50 Gran % 77.5 % (50.0-68.0) H 07/31/16 09:50 Lymph % (Auto) 14.5 % (22.0-35.0) L 07/31/16 09:50 Cole % (Auto) 7.8 % (1.0-6.0) H 07/31/16 09:50 Eos % (Auto) 0.1 % (1.5-5.0) L 07/31/16 09:50 Baso % (Auto) 0.1 % (0.0-3.0) 07/31/16 09:50 Gran # 6.97 (1.4-6.5) H 07/31/16 09:50 Lymph # 1.3 (1.2-3.4) 07/31/16 09:50 Cole # 0.7 (0.1-0.6) H 07/31/16 09:50 Eos # 0.0 (0.0-0.7) 07/31/16 09:50 Baso # 0.01 K/mm3 (0.0-2.0) 07/31/16 09:50 PT 11.2 Seconds (9.9-11.8) 07/31/16 09:50 INR 1.04 (0.93-1.08) 07/31/16 09:50 APTT 24.4 Seconds (23.7-30.8) 07/31/16 09:50 Sodium 144 mmol/L (132-148) 08/03/16 07:10 Potassium 3.6 mmol/L (3.6-5.0) 08/03/16 07:10 Chloride 114 mmol/L (95-110) H 08/03/16 07:10 Carbon Dioxide 22 mmol/L (21-33) 08/03/16 07:10 Anion Gap 12 (10-20) 08/03/16 07:10 BUN 23 mg/dL (7-21) H 08/03/16 07:10 Creatinine 0.7 mg/dL (0.5-1.4) 08/03/16 07:10 Est GFR ( Amer) > 60 08/03/16 07:10 Est GFR (Non-Af Amer) > 60 08/03/16 07:10 Random Glucose 115 mg/dL (70-110) H 08/03/16 07:10 Calcium 9.9 mg/dL (8.4-10.5) 08/03/16 07:10 Phosphorus 3.1 mg/dL (2.5-4.5) 08/03/16 07:10 Magnesium 1.7 mg/dL (1.7-2.2) 08/03/16 07:10 Total Bilirubin 0.4 mg/dL (0.2-1.3) 07/31/16 09:50 AST 24 U/L (15-39) 07/31/16 09:50 ALT 36 U/L (7-56) 07/31/16 09:50 Alkaline Phosphatase 69 U/L (38-133) 07/31/16 09:50 Troponin I < 0.01 ng/mL 07/31/16 09:50 Total Protein 6.6 g/dL (5.8-8.3) 07/31/16 09:50 Albumin 4.0 g/dL (3.0-4.8) 07/31/16 09:50 Globulin 2.6 gm/dL 07/31/16 09:50 Albumin/Globulin Ratio 1.5 (1.1-1.8) 07/31/16 09:50 Triglycerides 128 mg/dL (35-160) 08/01/16 07:00 Cholesterol 170 mg/dL (130-200) 08/01/16 07:00 LDL Cholesterol Direct 91 mg/dL (0-129) 08/01/16 07:00 HDL Cholesterol 53 mg/dL (29-60) 08/01/16 07:00 Free T4 1.48 ng/dL (0.78-2.19) 08/01/16 07:00 TSH 3rd Generation 0.88 mIU/mL (0.46-4.68) 08/01/16 07:00 Urine Color Yellow (YELLOW) 08/07/16 14:11 Urine Appearance Clear (CLEAR) 08/07/16 14:11 Urine pH 6.5 (4.7-8.0) 08/07/16 14:11 Ur Specific [place] 1.010 (1.005-1.035) 08/07/16 14:11 Urine Protein Negative mg/dL (<30 mg/dL) 08/07/16 14:11 Urine Glucose (UA) Negative mg/dL (NEGATIVE) 08/07/16 14:11 Urine Ketones Negative mg/dL (NEGATIVE) 08/07/16 14:11 Urine Blood Negative (NEGATIVE) 08/07/16 14:11 Urine Nitrate Negative (NEGATIVE) 08/07/16 14:11 Urine Bilirubin Negative (NEGATIVE) 08/07/16 14:11 Urine Urobilinogen 0.2 E.U./dL (<1 E.U./dL) 08/07/16 14:11 Ur Leukocyte Esterase Trace Connie/uL (NEGATIVE) H 08/07/16 14:11 Urine RBC 0 - 2 /hpf (0-2) 08/07/16 14:11 Urine WBC 1 - 3 /hpf (0-6) 08/07/16 14:11 Ur Epithelial Cells 4 - 5 /hpf (0-5) 08/07/16 14:11 Urine Bacteria Mod (NEG) 08/07/16 14:11 Salicylates < 1 mg/dL (2.0-20.0) L 07/31/16 09:50 Urine Opiates Screen Negative (NEGATIVE) 07/31/16 09:50 Urine Methadone Screen Negative (NEGATIVE) 07/31/16 09:50 Acetaminophen < 10.0 ug/ml (10.0-20.0) L 07/31/16 09:50 Ur Barbiturates Screen Negative (NEGATIVE) 07/31/16 09:50 Ur Phencyclidine Scrn Negative (NEGATIVE) 07/31/16 09:50 Ur Amphetamines Screen Negative (NEGATIVE) 07/31/16 09:50 U Benzodiazepines Scrn Negative (NEGATIVE) 07/31/16 09:50 U Oth Cocaine Metabols Negative (NEGATIVE) 07/31/16 09:50 U Cannabinoids Screen Negative (NEGATIVE) 07/31/16 09:50 RPR Nonreactive (NONREACTIVE) 08/01/16 07:35 Temp Pulse Resp BP Pulse Ox 97.4 F L 79 18 116/77 99 08/07/16 08:10 08/07/16 08:58 08/07/16 08:10 08/07/16 08:58 08/01/16 03:22 DSM 5 Symptoms Update: shortly patient is 61 years old female, [place] descent, was brought in by her son for evaluation of disorganized, psychotic behavior, patient also has history of alcohol use disorder, withdrawal symptoms cannot be excluded, patient lives alone, has history of depression, patient alsohas history of alcohol addiction, patient needs further evaluation and stabilization on medications adjustment. Patient was seen and examined today in the treatment team room, pt still has difficulties to stay focused but with much improvement. pt is [place] speaking this public relations writer utilized TV translation service, [employer] [id number], pt presented to be alert and oriented in self/time/place, but in a few minutes was not able to name the hospital. Pt said that "nothing is wrong with me", still has constructive apraxia, was not able to draw a clock. pt still has overproductive speech, but less pressured. Family meeting with pt's son Allyssa, he reported his mother "much improved, but she is not there yet", pt still has difficulties to concentrate, confusion, mild disorganized thoughts, but pt still has more organized behavior. risperdal was increased yesterday. as per staff pt is improving. no behavioral issues. pt tolerates meds well, no side effects observed or reported. Impression psychosis NOS r/o MDD with psychosis r/o delirium due to alcohol withdrawals alcohol abuse, dependence r/o bipolar (pt was irritable, pressured speech, was not sleeping) Medication Change: No (Risperdal increased yesterday) Medical Record Reviewed: Yes (reports, notes, vitals, labs ) Consults ordered or reviewed: medical consult appreciated, discussed with PMD last week Mental Status Examination - Cognitive Function Orientation: Person Attention: Poor (some improvement) Concentration: Poor (some improvement) Association: Loose (some improvement) Fund of Knowledge: Poor (some improvement) - Mood Mood: Depressed ("better"), Anxious - Affect Affect: Broad (at times inapropriate, pt was having angry outbursts) - Speech Speech: Pressured (improving) - Formal Thought Process Formal Thought Process: Hallucinations, Delusions, Paranoia, Loosening of associations, Flight of ideas (improving), Circumstantial - Suicidal Ideation Suicidal Ideation: No - Homicidal Ideation Homicidal Ideation: No Goal/Treatment Plan - Goal/Treatment Plan Need for Continued Stay: Remain at risks for inpatient hospitalization, Severe depression anxiety, Discharge may exacerbated symptoms, Severe functional impairment Progress Toward Problem(s) and Goals/Treatment Plan: milieu, structure, supportive therapy Ativan be discontinued Librium 25 mg hs for alcohol withdrawals Multivitamins, thiamine, folic acid Vital signs needs to be checked on regular basis Seroquel was discontinued because patient has lip swelling Thorazine was discontinued today because patient was not improving Risperdal 1 mg at the morning time and 2mg at the nighttime for psychosis lexapro 10mg po daily for depression and anxiety Benadryl 25 mg at the morning time at the nighttime for EPS prevention collaterals from primary care physician appreciated family involvement, will consider to have a family meeting SW evaluation Estimated Date of D/C: 08/10/16 (we'll monitor closely)
[2016-08-09 07:28] VITALS: BP 110/65; PULSE 69; RESP 20; TEMP 98.1
[2016-08-09] MEDS: Multivitamin Therapeutic Tab PO SCH (09:19)
[2016-08-09] MEDS: Pantoprazole 40 mg EC Tab PO SCH (09:21)
[2016-08-09] MEDS: DiphenhydrAMINE 12.5 mg/5 ml LIQ UD (5 ml) PO SCH (09:23)
--- NOTE | 2016-08-09 16:45 | PCM.PYCHDC ---
Mental Status Examination - Mental Status Examination Orientation: Person, Place, Situation, Time Memory: Intact Mood: Neutral Affect: Constricted (but reactive, mood congruent) Speech: Appropriate Attention: WNL Concentration: WNL Association: WNL Fund of Knowledge: WNL Formal Thought Process: No Impairment Description of patient's judgement and insight: Pt has improved insight into mental and medical illness, pt was compliant with medications and unit rules and regulations, pt was going to groups, was calm, cooperative, socially appropriate, no behavioral incidents, no agitation, no aggression. Psychotic Thoughts and Behaviors: Pt denied v/a/t hallucinations, denied paranoid ideations, pt does not appear to be psychotic, and thought process is goal directed. Suicidal Ideation: No Current Homicidal Ideation?: No Plan: pt adamantly denied thoughts of harming self or others denied intent or plan. Discharge Summary - Discharge Note Reason for Hospitalization: patient was brought in by her son for evaluation of disorganized, psychotic behavior, patient needs further evaluation and stabilization medications adjustment. Psychiatric History (includes Medical, Family, Personal Hx): see HPI Laboratory Data: 07/31/16 09:50 08/03/16 07:10 Lab Results 08/07/16 14:11: Urine Color Yellow, Urine Appearance Clear, Urine pH 6.5, Ur Specific [place] 1.010, Urine Protein Negative, Urine Glucose (UA) Negative, Urine Ketones Negative, Urine Blood Negative, Urine Nitrate Negative, Urine Bilirubin Negative, Urine Urobilinogen 0.2, Ur Leukocyte Esterase Trace H, Urine RBC 0 - 2, Urine WBC 1 - 3, Ur Epithelial Cells 4 - 5, Urine Bacteria Mod 08/03/16 07:10: Sodium 144, Potassium 3.6, Chloride 114 H, Carbon Dioxide 22, Anion Gap 12, BUN 23 H, Creatinine 0.7, Est GFR ( Amer) > 60, Est GFR ( Non-Af Amer) > 60, Random Glucose 115 H, Calcium 9.9, Phosphorus 3.1, Magnesium 1.7 08/02/16 06:00: Sodium 145, Potassium 3.1 L, Chloride 114 H, Carbon Dioxide 21, Anion Gap 13, BUN 18, Creatinine 0.7, Est GFR ( Amer) > 60, Est GFR (Non- Af Amer) > 60, Random Glucose 111 H, Calcium 9.6, Phosphorus 2.6, Magnesium 1.6 L 08/01/16 07:35: RPR Nonreactive 08/01/16 07:00: Triglycerides 128, Cholesterol 170, LDL Cholesterol Direct 91, HDL Cholesterol 53 08/01/16 07:00: Free T4 1.48, TSH 3rd Generation 0.88 07/31/16 17:00: Potassium 3.4 L 07/31/16 09:50: Salicylates < 1 L, Acetaminophen < 10.0 L 07/31/16 09:50: Urine Opiates Screen Negative, Urine Methadone Screen Negative, Ur Barbiturates Screen Negative, Ur Phencyclidine Scrn Negative, Ur Amphetamines Screen Negative, U Benzodiazepines Scrn Negative, U Oth Cocaine Metabols Negative, U Cannabinoids Screen Negative 07/31/16 09:50: Sodium 138, Potassium 2.5 L* D, Chloride 105, Carbon Dioxide 22 , Anion Gap 14, BUN 11, Creatinine 0.8, Est GFR ( Amer) > 60, Est GFR ( Non-Af Amer) > 60, Random Glucose 83, Calcium 9.5, Total Bilirubin 0.4, AST 24, ALT 36, Alkaline Phosphatase 69, Troponin I < 0.01, Total Protein 6.6, Albumin 4.0, Globulin 2.6, Albumin/Globulin Ratio 1.5 07/31/16 09:50: Urine Color Light yellow, Urine Appearance Sl cloudy, Urine pH 6.5, Ur Specific [place] >= 1.030, Urine Protein 30 H, Urine Glucose (UA) Negative, Urine Ketones 15 H, Urine Blood Negative, Urine Nitrate Negative, Urine Bilirubin Small H, Urine Urobilinogen 0.2, Ur Leukocyte Esterase Negative , Urine RBC 0 - 2, Urine WBC 0 - 2, Ur Epithelial Cells 1 - 3, Urine Bacteria Few 07/31/16 09:50: PT 11.2, INR 1.04, APTT 24.4 07/31/16 09:50: WBC 9.0, RBC 4.73, Hgb 14.4, Hct 39.9, MCV 84.4, MCH 30.4, MCHC 36.1, RDW 14.0, Plt Count 290, MPV 11.4 H, Gran % 77.5 H, Lymph % (Auto) 14.5 L , [place] % (Auto) 7.8 H, Eos % (Auto) 0.1 L, Baso % (Auto) 0.1, Gran # 6.97 H, Lymph # 1.3, [place] # 0.7 H, Eos # 0.0, Baso # 0.01 Vital Signs Temp Pulse Resp BP Pulse Ox 08/09/16 09:22 69 110/65 08/09/16 07:24 98.1 F 69 20 110/65 08/08/16 17:15 87 142/79 08/08/16 16:00 87 142/79 08/08/16 08:09 78 110/73 08/08/16 08:01 97.6 F 78 18 110/73 08/07/16 17:02 81 119/82 08/07/16 16:48 77 134/84 08/07/16 08:58 79 116/77 08/07/16 08:10 97.4 F L 79 18 116/77 08/06/16 17:32 81 119/82 08/06/16 16:38 81 119/82 08/06/16 08:31 77 117/77 08/06/16 07:31 97.8 F 77 19 117/77 08/05/16 17:35 81 123/80 08/05/16 16:00 81 123/80 08/05/16 08:15 100 H 107/71 08/05/16 08:14 97.3 F L 100 H 20 107/71 08/04/16 16:53 86 127/86 08/04/16 16:21 86 127/86 08/04/16 09:01 100 H 118/79 08/04/16 08:00 97.3 F L 100 H 20 118/79 08/03/16 13:44 109 H 126/84 08/03/16 07:39 97.8 F 109 H 20 126/84 08/03/16 07:35 98.5 F 79 20 134/82 08/02/16 17:50 79 139/89 08/02/16 15:47 79 139/89 08/02/16 10:43 96 H 156/101 H 08/02/16 07:40 98.0 F 96 H 20 156/101 H 08/01/16 14:00 92 H 148/94 H 08/01/16 10:27 98.2 F 08/01/16 10:21 102 F H 08/01/16 10:08 102.0 F H 83 149/91 H 08/01/16 03:22 78 18 130/73 99 07/31/16 19:05 18 07/31/16 17:53 65 18 148/79 99 07/31/16 15:18 98.4 F 61 18 140/80 61 L 07/31/16 09:59 97.6 F 59 L 16 160/88 H 97 Consultations:: List each consultation separately and include: 1. Reason for request. 2. Findings. 3. Follow-up Consultations: medical consult appreciated, discussed with PMD last week Summary of Hospital Course include:: 1. Description of specific treatment plan utilized for patients during their course of treatmen. 2. Summarize the time- course for resolution of acute symptoms and/or regressed behaviors. 3. Describe issues identified and worked on during hospitalization. 4. Describe medication utilized. 5. Describe medical problems identified and treated. 6. Reassessment of suicide risk Summary of Hospital Course: shortly patient is 61 years old female, [place] descent, was brought in by her son for evaluation of disorganized, psychotic behavior, patient also has history of alcohol use disorder, withdrawal symptoms cannot be excluded, patient lives alone, has history of depression, patient alsohas history of alcohol addiction, patient needs further evaluation and stabilization on medications adjustment. patient is [place] speaking and this policy writer utilized TV translation services to interview pt. at the time of admission presented to be completely disorganized, disoriented, rapid speech, lock operator said that it is hard to understand what pt is talking. patient was asking this policy writer where does she leave, patient also was making comments like her who and her sister will keep drinking at home and that is why she was admitted to the hospital. At the same time patient said she came to the hospital because primary care physician said that she has low potassium and she would because of that. Patient presented to have difficulty to stay focus and concentrate patient was not able to have meaningful conversation, was not able to draw a clock, remembered only two words on [employer]. pt denied v/a/t hallucinations, but was observed talking to the sealing, self, actively hallucinating. labs reviewed: 07/31/16 09:50 07/31/16 17:00 Lab Results 08/01/16 07:00: Triglycerides 128, Cholesterol 170, LDL Cholesterol Direct 91, HDL Cholesterol 53 08/01/16 07:00: Free T4 1.48, TSH 3rd Generation 0.88 07/31/16 17:00: Potassium 3.4 L 07/31/16 09:50: Salicylates < 1 L, Acetaminophen < 10.0 L 07/31/16 09:50: Urine Opiates Screen Negative, Urine Methadone Screen Negative, Ur Barbiturates Screen Negative, Ur Phencyclidine Scrn Negative, Ur Amphetamines Screen Negative, U Benzodiazepines Scrn Negative, U Oth Cocaine Metabols Negative, U Cannabinoids Screen Negative 07/31/16 09:50: Sodium 138, Potassium 2.5 L* D, Chloride 105, Carbon Dioxide 22 , Anion Gap 14, BUN 11, Creatinine 0.8, Est GFR ( Amer) > 60, Est GFR ( Non-Af Amer) > 60, Random Glucose 83, Calcium 9.5, Total Bilirubin 0.4, AST 24, ALT 36, Alkaline Phosphatase 69, Troponin I < 0.01, Total Protein 6.6, Albumin 4.0, Globulin 2.6, Albumin/Globulin Ratio 1.5 07/31/16 09:50: Urine Color Light yellow, Urine Appearance Sl cloudy, Urine pH 6.5, Ur Specific [place] >= 1.030, Urine Protein 30 H, Urine Glucose (UA) Negative, Urine Ketones 15 H, Urine Blood Negative, Urine Nitrate Negative, Urine Bilirubin Small H, Urine Urobilinogen 0.2, Ur Leukocyte Esterase Negative , Urine RBC 0 - 2, Urine WBC 0 - 2, Ur Epithelial Cells 1 - 3, Urine Bacteria Few 07/31/16 09:50: PT 11.2, INR 1.04, APTT 24.4 07/31/16 09:50: WBC 9.0, RBC 4.73, Hgb 14.4, Hct 39.9, MCV 84.4, MCH 30.4, MCHC 36.1, RDW 14.0, Plt Count 290, MPV 11.4 H, Gran % 77.5 H, Lymph % (Auto) 14.5 L , [place] % (Auto) 7.8 H, Eos % (Auto) 0.1 L, Baso % (Auto) 0.1, Gran # 6.97 H, Lymph # 1.3, [place] # 0.7 H, Eos # 0.0, Baso # 0.01 Vital Signs Temp Pulse Resp BP Pulse Ox 08/01/16 10:27 98.2 F 08/01/16 10:21 102 F H 08/01/16 10:08 102.0 F H 83 149/91 H 08/01/16 03:22 78 18 130/73 99 07/31/16 19:05 18 07/31/16 17:53 65 18 148/79 99 07/31/16 15:18 98.4 F 61 18 140/80 61 L 07/31/16 09:59 97.6 F 59 L 16 160/88 H 97 as per collaterals from pt's son, pt at times takes more medications that it is prescribed, then the rest of the month she would drink alcohol trying to help herself with it. pt also had electrolytes imbalance which could contribute to the pt's presentation pt was given geodon and seroquel but pt had angioedema. pt was stabilized on the following medications: Librium was tapered down and then d/c Multivitamins, thiamine, folic acid Thorazine was discontinued pt was not improving on it Risperdal was slowly titrated to 1 mg at the morning time and 2mg at the nighttime for psychosis lexapro 10mg po daily for depression and anxiety Benadryl 25 mg at the morning time at the nighttime for EPS prevention patient tolerated medications well, no side effects observed or reported, aims 0 , no EPS. This policy writer had family meeting with patient son, please see yesterday note for more detailed information, as per son patient is improving patient son was appreciated. Patient seems to reach maximum effect from the acute setting, requested to be discharged, willing to continue to take medications, and have follow-up appointment. Over the course of this hospitalization pt was attending groups, pt also had medication management, had therapeutic milieu. Overall pt improved significantly psychosis is better, pt was socially appropriate, no behavioral issues, pts insight improved as well pt deemed to be ready for discharge. At the time of the discharge pt denied been depressed, denied thoughts of harming self or others, denied psychotic symptoms, and pt does not appeared to be psychotic, denied been anxious, was considered to pose no threat to self or others, will be following up at 's office, information about follow up appointment, time and address provided to the pt, it is patient responsibility to follow up with outpatient clinic, PMD as well as specialists (see SW note for more detailed information). In case pt will need to obtain results of studies pending at discharge pt was provided with contact information of Psychiatric Inpatient unit [phone] as well as Medical Record Department [phone]. Counseling about alcohol cessation provided, but pt denied using alcohol pt was provided with prescriptions for all of medications (please see medication reconciliation form) Pt was educated about safety plan in case of worsening of symptoms or in case of suicidal or homicidal ideation call 911 or go to the nearest ER, also was educated to take meds as prescribed and stay away from drugs, pt verbalized understanding. - Diagnosis (1) Delirium due to another medical condition, persistent, mixed level of activity Current Visit: Yes Status: Acute (2) Electrolyte abnormality Current Visit: No Status: Acute (3) Major depressive disorder with psychotic features Current Visit: Yes Status: Acute - Final Diagnosis (DSM 5) Condition upon Discharge: GOOD DSM 5: At the time of the discharge pt denied been depressed, denied thoughts of harming self or others, denied psychotic symptoms, and pt does not appeared to be psychotic, denied been anxious, was considered to pose no threat to self or others, will be following up at 's office, information about follow up appointment, time and address provided to the pt, it is patient responsibility to follow up with outpatient clinic, PMD as well as specialists (see SW note for more detailed information). In case pt will need to obtain results of studies pending at discharge pt was provided with contact information of Psychiatric Inpatient unit [phone] as well as Medical Record Department [phone]. Counseling about alcohol cessation provided, but pt denied using alcohol pt was provided with prescriptions for all of medications (please see medication reconciliation form) Pt was educated about safety plan in case of worsening of symptoms or in case of suicidal or homicidal ideation call 911 or go to the nearest ER, also was educated to take meds as prescribed and stay away from drugs, pt verbalized understanding. Disposition: HOME/ ROUTINE Follow-up Treatment Plan: milieu, structure, supportive therapy Ativan be discontinued Librium 25 mg hs for alcohol withdrawals Multivitamins, thiamine, folic acid Vital signs needs to be checked on regular basis Seroquel was discontinued because patient has lip swelling Thorazine was discontinued today because patient was not improving Risperdal 1 mg at the morning time and 2mg at the nighttime for psychosis lexapro 10mg po daily for depression and anxiety Benadryl 25 mg at the morning time at the nighttime for EPS prevention collaterals from primary care physician appreciated family involvement, will consider to have a family meeting SW evaluation Prescriptions/Medication Reconciliation: DiphenhydrAMINE [Benadryl] 50 mg PO HS #14 cap Escitalopram [Lexapro] 10 mg PO HS #14 Risperidone [Risperdal] 1 mg PO DAILY #14 tablet Risperidone [Risperdal] 2 mg PO HS #14 tablet - Smoking Cessation Smoking Cessation Medication prescribed: No Reason for not providing: pt does not smoke
== END 2016-08-09 17:28 | disposition home or self-care (01) | DRG 885 ==
LOC: ED 09:48 → ERH 14:17 → PSYC 18:26
PROVIDERS: ADMIT Psychiatry & Neurology Psychiatry; ATTEND Psychiatry & Neurology Psychiatry
DX: F32.3 Major depressive disorder, single episode, severe with psychotic features (principal); F05 Delirium due to known physiological condition; B19.10 Unspecified viral hepatitis B without hepatic coma; E83.42 Hypomagnesemia; R00.1 Bradycardia, unspecified; F10.239 Alcohol dependence with withdrawal, unspecified; N39.0 Urinary tract infection, site not specified; E87.6 Hypokalemia; B19.20 Unspecified viral hepatitis C without hepatic coma; E66.9 Obesity, unspecified; F17.210 Nicotine dependence, cigarettes, uncomplicated; I10 Essential (primary) hypertension; T78.3XXA Angioneurotic edema, initial encounter; Z79.899 Other long term (current) drug therapy; R40.2412 Glasgow coma scale score 13-15, at arrival to emergency department; Z68.30 Body mass index [BMI] 30.0-30.9, adult

== ENCOUNTER 2016-08-30 12:44 | Emergency (ER) | payer BC ==
[2016-08-30 12:45] VITALS: BMI 30.2
[2016-08-30 12:59] VITALS: BP 109/57; PULSE 84; RESP 16; TEMP 97.9; O2SAT 96
--- NOTE | 2016-08-30 13:19 | ED PDOC ---
Arrival/HPI - General Chief Complaint: Seizure Time Seen by Provider: 08/30/16 12:55 Historian: Patient - History of Present Illness Narrative History of Present Illness (Text): 08/30/16 13:30 61 year old female presents to the emergency department after seizure at work. 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 They report she had a 2 minute generalized tonoclonic seizure. As per EMS patient was incontinent, post ictal, and agitated en route. Currently patient denies any pain, headache, or other complaints. Time/Duration: Prior to Arrival Symptom Onset: Sudden Symptom Course: Improving Modifying Factors (Text): None Context: Standing, Work Past Medical History - Provider Review Nursing Documentation Reviewed: Yes - Infectious Disease Hx of Infectious Diseases: None - Tetanus Immunization Tetanus Immunization: Unknown - Cardiac Hx Hypertension: Yes - Pulmonary Hx Respiratory Disorders: No - Neurological Hx Neurological Disorder: Yes (ams) Other/Comment: ETOH ABUSE - HEENT Hx HEENT Disorder: No - Renal Hx Renal Disorder: No - Endocrine/Metabolic Hx Endocrine Disorders: No - Hematological/Oncological Hx Hepatitis B: Yes Hx Hepatitis C: Yes - Integumentary Hx Dermatological Disorder: No - Musculoskeletal/Rheumatological Hx Falls: No - Gastrointestinal Hx Gastrointestinal Disorders: Yes Other/Comment: ETOH ABUSE - Genitourinary/Gynecological Hx Sexually Transmitted Diseases: No - Psychiatric Hx Psychophysiologic Disorder: Yes (Alcohol abuse, heavy smoker) Hx Substance Use: No - Past Surgical History Past Surgical History: No Previous - Anesthesia Hx Anesthesia: No - Suicidal Assessment Feels Threatened In Home Enviroment: No Family/Social History - Physician Review Nursing Documentation Reviewed: Yes Family/Social History: Unknown Family HX Smoking Status: Heavy Smoker > 10 Cigarettes Daily Hx Alcohol Use: Yes Hx Substance Use: No Hx Substance Use Treatment: No Allergies/Home Meds Allergies/Adverse Reactions: Allergies quetiapine [From Seroquel] Allergy (Verified 08/30/16 12:57) ANGIOEDEMA ziprasidone [From Geodon] Allergy (Verified 08/30/16 12:57) ANGIOEDEMA Review of Systems - Physician Review All systems were reviewed & negative as marked: Yes - Review of Systems Cardiovascular: absent: Chest Pain Gastrointestinal: absent: Abdominal Pain Neurological: Seizure. absent: Headache Physical Exam Vital Signs Reviewed: Yes Vital Signs Temp Pulse Resp BP Pulse Ox 08/30/16 12:52 97.9 F 84 16 109/57 L 96 Temperature: Afebrile Blood Pressure: Normal Pulse: Regular Respiratory Rate: Normal Appearance: Positive for: Well-Appearing, Non-Toxic, Comfortable Pain Distress: None Mental Status: Positive for: Alert and Oriented X 3 Finger Stick Blood Glucose: 92 - Systems Exam Head: Present: Atraumatic, Normocephalic Pupils: Present: PERRL Extroacular Muscles: Present: EOMI Conjunctiva: Present: Normal Mouth: Present: Moist Mucous Membranes Neck: Present: Normal Range of Motion Respiratory/Chest: Present: Clear to Auscultation, Good Air Exchange. No: Respiratory Distress, Accessory Muscle Use Cardiovascular: Present: Regular Rate and Rhythm, Normal S1, S2. No: Murmurs Abdomen: Present: Normal Bowel Sounds. No: Tenderness, Distention, Peritoneal Signs Back: Present: Normal Inspection Upper Extremity: Present: Normal Inspection. No: Cyanosis, Edema Lower Extremity: Present: Normal Inspection. No: Edema Neurological: Present: GCS=15, CN II-XII Intact, Speech Normal, Motor Func Grossly Intact, Normal Sensory Function Skin: Present: Warm, Dry, Normal Color. No: Rashes Psychiatric: Present: Alert, Oriented x 3, Normal Insight, Normal Concentration Medical Decision Making ED Course and Treatment: EKG shows NSR at 85 BPM, otherwise normal. Interpreted by me. PROCEDURE: CT HEAD WITHOUT CONTRAST. Meat Molder : Litzy Rowe MD Report Date : 08/30/2016 13:59:06 IMPRESSION: No acute intracranial abnormality. Mild chronic microangiopathic changes and mild age-related global parenchymal volume loss. 08/30/16 1530 I disc w pts pcp Dr Marroquin who can follow up with the pt in his office for outpt seizure wrkup. I disc this w the pt and her son and they are comfortable w this plan. The pt appears well without complaints, no seizure activity in the ED. Will return for any recurrent seizure or new or concerning symptoms. - Lab Interpretations Lab Results: 08/30/16 13:15 08/30/16 13:15 Lab Results 08/30/16 15:25: Urine Color Yellow, Urine Appearance Clear, Urine pH 6.5, Ur Specific [place] 1.020, Urine Protein Trace H, Urine Glucose (UA) Negative, Urine Ketones Negative, Urine Blood Negative, Urine Nitrate Negative, Urine Bilirubin Negative, Urine Urobilinogen 0.2, Ur Leukocyte Esterase Negative, Urine RBC Negative, Urine WBC 0 - 2, Ur Epithelial Cells 3 - 4, Urine Bacteria Few 08/30/16 13:15: Alcohol, Quantitative < 10 08/30/16 13:15: Sodium 140, Potassium 3.8, Chloride 106, Carbon Dioxide 25, Anion Gap 13, BUN 20, Creatinine 0.9, Est GFR ( Amer) > 60, Est GFR (Non- Af Amer) > 60, Random Glucose 88, Calcium 9.5, Total Bilirubin 0.3, AST 26, ALT 32, Alkaline Phosphatase 92, Total Protein 6.8, Albumin 3.9, Globulin 2.9, Albumin/Globulin Ratio 1.3 08/30/16 13:15: WBC 6.9 D, RBC 3.96, Hgb 11.8 L, Hct 35.5 L, MCV 89.6, MCH 29.8 , MCHC 33.2, RDW 13.7, Plt Count 213, MPV 11.7 H, Gran % 54.7, Lymph % (Auto) 33.3, [place] % (Auto) 8.7 H, Eos % (Auto) 2.9, Baso % (Auto) 0.4, Gran # 3.77, Lymph # 2.3, [place] # 0.6, Eos # 0.2, Baso # 0.03 08/30/16 12:53: POC Glucose (mg/dL) 92 - RAD Interpretation Radiology Orders: 08/30/16 13:17 HEAD W/O CONTRAST [CT] Stat CHEST ONE VIEW [RAD] Stat - Scribe Statement The provider has reviewed the documentation as recorded by the Arnie Berumen Provider Scribe Attestation: All medical record entries made by the Yeseniaibciara were at my direction and personally dictated by me. I have reviewed the chart and agree that the record accurately reflects my personal performance of the history, physical exam, medical decision making, and the department course for this patient. I have also personally directed, reviewed, and agree with the discharge instructions and disposition. Disposition/Present on Arrival - Present on Arrival Any Indicators Present on Arrival: No History of DVT/PE: No History of Uncontrolled Diabetes: No Urinary Catheter: No History of Decub. Ulcer: No History Surgical Site Infection Following: None - Disposition Have Diagnosis and Disposition been Completed?: Yes Diagnosis: Seizure Disposition: HOME/ ROUTINE Disposition Time: 15:59 Patient Problems: Current Active Problems Problem Status Onset Seizure Acute Condition: GOOD Discharge Instructions (ExitCare): New-Onset Seizure in Adults (ED) Additional Instructions: Please follow up with your doctor tomorrow. Do not drive, take a bath, climb to heights, operate machinery, or do any activity that may result in injury if you have a seizure while performing it. Return to the ER for any worsening symptoms or for any other concerns. Referrals: Nicolas Marroquin MD [Primary Care Provider] - Follow up with primary
[2016-08-30 13:37] LABS: ADD MANUAL DIFF? NO
[2016-08-30 13:41] LABS: BASO # 0.03 K/mm3 (0.0-2.0); BASO % 0.4 % (0.0-3.0); EOS # 0.2 (0.0-0.7); EOS % 2.9 % (1.5-5.0); GRAN # 3.77 (1.4-6.5); GRAN % 54.7 % (50.0-68.0); HEMATOCRIT 35.5 % (36.0-48.0); LYMPH # 2.3 (1.2-3.4); LYMPH % 33.3 % (22.0-35.0); MEAN CELL VOLUME 89.6 fL (80.0-105.0); MEAN CORPUSCULAR HEMOGLOBIN 29.8 pg (25.0-35.0); MEAN CORPUSCULAR HGB CONC 33.2 g/dl (31.0-37.0); MEAN PLATELET VOLUME 11.7 fl (7.0-11.0); MONO # 0.6 (0.1-0.6); MONO % 8.7 % (1.0-6.0); PLATELET COUNT 213 10^3/uL (120.0-450.0); RED CELL DISTRIBUTION WIDTH 13.7 % (11.5-14.5); WHITE BLOOD COUNT 6.9 10^3/ul (4.5-11.0)
[2016-08-30 13:53] LABS: ALB/GLOB RATIO 1.3 (1.1-1.8); ALKALINE PHOSPHATASE 92 U/L (38-133); ALT/SGPT 32 U/L (7-56); AST/SGOT 26 U/L (15-39); BILIRUBIN,TOTAL 0.3 mg/dL (0.2-1.3); BLOOD UREA NITROGEN 20 mg/dL (7-21); CALCIUM 9.5 mg/dL (8.4-10.5); CARBON DIOXIDE 25 mmol/L (21-33); CHLORIDE 106 mmol/L (98-107); GFR AFRICAN-AMERICAN > 60; GLUCOSE,RANDOM 88 mg/dL (70-110); POTASSIUM 3.8 mmol/L (3.6-5.0); SODIUM 140 mmol/L (132-148); TOTAL PROTEIN 6.8 g/dL (5.8-8.3)
--- NOTE | 2016-08-30 14:00 | CT ---
PROCEDURE: CT HEAD WITHOUT CONTRAST. HISTORY: seizure COMPARISON: 07/24/2015. TECHNIQUE: Axial computed tomography images were obtained through the head/brain without intravenous contrast. Radiation dose: Total exam DLP = 689.17 mGy-cm. This CT exam was performed using one or more of the following dose reduction techniques: Automated exposure control, adjustment of the mA and/or kV according to patient size, and/or use of iterative reconstruction technique. FINDINGS: HEMORRHAGE: No intracranial hemorrhage. BRAIN: There are mild chronic microangiopathic changes. There is no mass, mass effect or abnormal extra-axial fluid collection. There is no territorial infarction. VENTRICLES: There is mild age-related global parenchymal volume loss and proportionate enlargement of the ventricles and cortical sulci. CALVARIUM: The skull base and calvarium are normal. PARANASAL SINUSES: Predominantly clear. MASTOID AIR CELLS: Predominantly clear. OTHER FINDINGS: None. IMPRESSION: No acute intracranial abnormality. Mild chronic microangiopathic changes and mild age-related global parenchymal volume loss.
--- NOTE | 2016-08-30 15:09 | RAD ---
PROCEDURE: CHEST RADIOGRAPH, 1 VIEW HISTORY: seizure COMPARISON: 05/15/2016. FINDINGS: LUNGS: The lungs are well inflated and clear. PLEURA: No pneumothorax or pleural fluid seen. CARDIOVASCULAR: Normal. OSSEOUS STRUCTURES: No significant abnormalities. VISUALIZED UPPER ABDOMEN: Normal. OTHER FINDINGS: None. IMPRESSION: No active pulmonary disease.
[2016-08-30 15:48] LABS: PH,URINE 6.5 (4.7-8.0); URINE APPEARANCE CLEAR (CLEAR); URINE BILIRUBIN NEGATIVE (NEGATIVE); URINE BLOOD NEGATIVE (NEGATIVE); URINE COLOR YELLOW (YELLOW); URINE GLUCOSE (UA) NEGATIVE (NEGATIVE); URINE KETONE NEGATIVE (NEGATIVE); URINE LEUKOCYTE ESTERASE NEGATIVE Leu/uL (NEGATIVE); URINE PROTEIN TRACE mg/dL (<30 mg/dL); URINE UROBILINOGEN 0.2 E.U./dL (<1 E.U./dL)
[2016-08-30 15:53] LABS: URINE BACTERIA FEW (NEG); URINE RBC NEGATIVE /hpf (0-2); URINE WBC 0 - 2 /hpf (0-6)
--- NOTE | 2016-08-30 23:37 | CARD ---
APPROVED REPORT EKG Measurement Heart [id number] <Conclusion> Sinus rhythm with occasional premature ventricular complexes Otherwise normal ECG
== END 2016-08-30 16:24 | disposition home or self-care (01) ==
LOC: ED 12:44
DX: R56.9 Unspecified convulsions (principal); F17.210 Nicotine dependence, cigarettes, uncomplicated; I10 Essential (primary) hypertension
CPT/HCPCS: 70450; 71010; 80053; 81001; 82948; 85025; 93005; 99285; G0480

== ENCOUNTER 2016-10-25 13:58 | Inpatient (IN) | payer SELFPAY ==
[2016-10-25 14:09] VITALS: BMI 30.4
--- NOTE | 2016-10-25 14:19 | ED PDOC ---
Arrival/HPI - General Chief Complaint: Anxiety Time Seen by Provider: 10/25/16 14:16 Historian: Patient - History of Present Illness Narrative History of Present Illness (Text): 10/25/16 14:16 Zeina Perez is a 61 year old female who presents to the emergency department complaining of feeling anxious because many of her family members consume alcohol. Patient denies any drug or alcohol use, any suicidal ideation, homicidal ideation, or any other complaints at this time. Symptom Course: Unchanged Activities at Onset: Rest Context: Home Associated Symptoms (Text): none Past Medical History - Provider Review Nursing Documentation Reviewed: Yes - Infectious Disease Hx of Infectious Diseases: None - Tetanus Immunization Tetanus Immunization: Unknown - Cardiac Hx Hypertension: Yes - Pulmonary Hx Respiratory Disorders: No - Neurological Hx Neurological Disorder: Yes (ams) Other/Comment: ETOH ABUSE - HEENT Hx HEENT Disorder: No - Renal Hx Renal Disorder: No - Endocrine/Metabolic Hx Endocrine Disorders: No - Hematological/Oncological Hx Hepatitis B: Yes Hx Hepatitis C: Yes - Integumentary Hx Dermatological Disorder: No - Musculoskeletal/Rheumatological Hx Falls: No - Gastrointestinal Hx Gastrointestinal Disorders: Yes Other/Comment: ETOH ABUSE - Genitourinary/Gynecological Hx Sexually Transmitted Diseases: No - Psychiatric Hx Psychophysiologic Disorder: Yes (Alcohol abuse, heavy smoker) Hx Substance Use: No - Past Surgical History Past Surgical History: No Previous - Anesthesia Hx Anesthesia: No - Suicidal Assessment Feels Threatened In Home Enviroment: No Family/Social History - Physician Review Nursing Documentation Reviewed: Yes Family/Social History: No Known Family HX Smoking Status: Heavy Smoker > 10 Cigarettes Daily Hx Alcohol Use: Yes (stopped 5 years ago) Hx Substance Use: No Hx Substance Use Treatment: No Allergies/Home Meds Allergies/Adverse Reactions: Allergies quetiapine [From Seroquel] Allergy (Verified 08/30/16 12:57) ANGIOEDEMA ziprasidone [From Geodon] Allergy (Verified 08/30/16 12:57) ANGIOEDEMA Home Medications: Home Meds Medication Instructions Recorded Confirmed Clonazepam [Klonopin] 1 tab PO TID 10/25/16 10/25/16 Clorazepate Dipotassium [Tranxene 1 tab PO TID 10/25/16 10/25/16 T-Tab] Hydrocodone/Ibuprofen 1 tab PO DAILY 10/25/16 10/25/16 [Hydrocodone-Ibuprofen 7.5-200] Imipramine [Tofranil] 1 tab PO BID 10/25/16 10/25/16 Losartan/Hydrochlorothiazide 1 tab PO DAILY 10/25/16 10/25/16 [Losartan-Hctz 100-25 mg Tab] Sertraline [Zoloft] 1 tab PO DAILY 10/25/16 10/25/16 Sucralfate [Carafate] 1 tab PO QID 10/25/16 10/25/16 Temazepam [Restoril] 1 cap PO HS PRN 10/25/16 10/25/16 Physical Exam - Physical Exam Narrative Physical Exam (Text): - Review of Systems Constitutional: Normal. absent: Fatigue, Weight Change, Fevers Eyes: Normal ENT: Normal Respiratory: Normal absent: SOB, Cough, Sputum Cardiovascular: Normal absent: Chest pain, Palpitations, Syncope Gastrointestinal: Normal absent: Abdominal pain, Diarrhea, Nausea, Vomiting Genitourinary: Normal. absent: Dysuria, Frequency, Hematuria Musculoskeletal: Normal. absent: Arthralgias, Back Pain, Neck Pain Skin: Normal Neurological: Normal absent: Focal Weakness Endocrine: Normal Hemo/Lymphatic: Normal Psychiatric: Anxiety - Physical exam Patient appears age appropriate, speaking full sentences without difficulty. - Systems Exam Head: Present: Atraumatic, Normocephalic Pupils: Present: PERRL Extraocular Muscles: Present: EOMI Conjunctiva: Present: Normal Mouth: Present: Moist Mucous Membranes Neck: Present: Normal Range of Motion. No: MIDLINE TENDERNESS, Paraspinal Tenderness Respiratory/Chest: Present: Clear to Auscultation, Good Air Exchange. No: Respiratory Distress, Accessory Muscle Use, Tachypnic Cardiovascular: Present: Regular Rate and Rhythm, Normal S1, S2, Peripheral Pulses Present. No: Murmurs Abdomen: Present: Normal Bowel Sounds, No: Tenderness, Peritoneal Signs, Rebound, Guarding, Distention Back: Present: Normal Inspection. No: Midline Tenderness, Paraspinal Tenderness Upper Extremity: Present: Normal Inspection. No: Cyanosis, Edema Lower Extremity: Present: Normal Inspection. No: Edema Neurological: Present: GCS=15, Speech Normal, cranial nerves II through XII fully intact with no cerebellar abnormality, neuro-sensory fully intact. No focal neurological deficits. Skin: Present: Warm, Dry, Normal Color. No: Rashes Lymphatic: Present: OX3, NI, NC Psychiatric: Present: Alert, Oriented x 3, Normal Insight, Normal Concentration Vital Signs Temp Pulse Resp BP Pulse Ox 10/25/16 14:08 98.7 F 102 H 20 105/73 95 Medical Decision Making ED Course and Treatment: 10/25/16 14:16 Impression: 61 year old female, brought in by EMS, complaining of feel anxious because many of her family members consume alcohol Differential Diagnosis included but are not limited to: Anxiety Plan: -- EKG -- Chest X-ray -- Urinalysis -- Labs -- Ativan -- Reassess and disposition Prior Visits: Notes and results from previous visits were reviewed. Patient last seen in the ED on 08/30/16 for a seizure at work that day. Patient was discharged home. Progress Notes: EKG shows NSR at 87 BPM with PVCs, no ST-segment elevations, and normal intervals. Interpreted by me. 10/25/16 14:55 Chest X-ray: Dictator : Dani Atwood MD FINDINGS: LUNGS:No active pulmonary disease. PLEURA:No significant pleural effusion identified, no pneumothorax apparent. CARDIOVASCULAR:Normal. OSSEOUS STRUCTURES:No significant abnormalities. VISUALIZED UPPER ABDOMEN:Normal. OTHER FINDINGS:None. IMPRESSION: No active disease. 10/25/16 16:19 pt seen and evaluated by Noemi from [facility], she states to admit pt to Dr. Borges's service for psychosis pt aware of and agrees with plan - Lab Interpretations Lab Results: 10/25/16 14:35 10/25/16 14:35 Lab Results 10/25/16 14:35: Alcohol, Quantitative < 10 10/25/16 14:35: Salicylates < 1 L, Acetaminophen < 10.0 L 10/25/16 14:35: Sodium 139, Potassium 3.6, Chloride 100, Carbon Dioxide 24, Anion Gap 19, BUN 24 H, Creatinine 0.9, Est GFR ( Amer) > 60, Est GFR ( Non-Af Amer) > 60, Random Glucose 138 H, Calcium 9.9, Total Bilirubin 0.7, AST 26, ALT 44, Alkaline Phosphatase 95, Total Protein 8.1, Albumin 4.8, Globulin 3.3, Albumin/Globulin Ratio 1.5 10/25/16 14:35: WBC 9.8 D, RBC 5.12, Hgb 15.5, Hct 44.6, MCV 87.1, MCH 30.3, MCHC 34.8, RDW 13.2, Plt Count 263, MPV 11.8 H, Gran % 77.6 H, Lymph % (Auto) 16.7 L, [place] % (Auto) 5.2, Eos % (Auto) 0.3 L, Baso % (Auto) 0.2, Gran # 7.61 H , Lymph # 1.6, [place] # 0.5, Eos # 0.0, Baso # 0.02 I have reviewed the lab results: Yes - RAD Interpretation Radiology Orders: 10/25/16 14:16 CHEST PORTABLE [RAD] Stat - Medication Orders Current Medication Orders: Discontinued Medications Lorazepam (Ativan) 2 mg PO ONCE ONE PRN Reason: Protocol Stop: 10/25/16 14:18 Last Admin: 10/25/16 14:29 Dose: 2 mg - Scribe Statement The provider has reviewed the documentation as recorded by the Arnie Li Provider Scribe Attestation: All medical record entries made by the Yeseniaibciara were at my direction and personally dictated by me. I have reviewed the chart and agree that the record accurately reflects my personal performance of the history, physical exam, medical decision making, and the department course for this patient. I have also personally directed, reviewed, and agree with the discharge instructions and disposition. Disposition/Present on Arrival - Present on Arrival Any Indicators Present on Arrival: No History of DVT/PE: No History of Uncontrolled Diabetes: No Urinary Catheter: No History of Decub. Ulcer: No History Surgical Site Infection Following: None - Disposition Have Diagnosis and Disposition been Completed?: Yes Diagnosis: Psychosis Disposition: HOSPITALIZED Disposition Time: 16:20 Patient Plan: Admission Condition: FAIR Forms: [employer] (French)
[2016-10-25 14:50] LABS: ADD MANUAL DIFF? NO
--- NOTE | 2016-10-25 14:50 | RAD ---
HISTORY: med clearence COMPARISON: No prior. FINDINGS: LUNGS: No active pulmonary disease. PLEURA: No significant pleural effusion identified, no pneumothorax apparent. CARDIOVASCULAR: Normal. OSSEOUS STRUCTURES: No significant abnormalities. VISUALIZED UPPER ABDOMEN: Normal. OTHER FINDINGS: None. IMPRESSION: No active disease.
[2016-10-25 14:53] LABS: BASO # 0.02 K/mm3 (0.0-2.0); BASO % 0.2 % (0.0-3.0); EOS % 0.3 % (1.5-5.0); GRAN # 7.61 (1.4-6.5); GRAN % 77.6 % (50.0-68.0); HEMATOCRIT 44.6 % (36.0-48.0); LYMPH # 1.6 (1.2-3.4); LYMPH % 16.7 % (22.0-35.0); MEAN CELL VOLUME 87.1 fl (80.0-105.0); MEAN CORPUSCULAR HEMOGLOBIN 30.3 pg (25.0-35.0); MEAN CORPUSCULAR HGB CONC 34.8 g/dl (31.0-37.0); MEAN PLATELET VOLUME 11.8 fl (7.0-11.0); MONO # 0.5 (0.1-0.6); MONO % 5.2 % (1.0-6.0); PLATELET COUNT 263 10^3/uL (120.0-450.0); RED CELL DISTRIBUTION WIDTH 13.2 % (11.5-14.5); WHITE BLOOD COUNT 9.8 10^3/ul (4.5-11.0)
[2016-10-25 15:04] LABS: ALB/GLOB RATIO 1.5 (1.1-1.8); ALKALINE PHOSPHATASE 95 U/L (38-133); ALT/SGPT 44 U/L (7-56); AST/SGOT 26 U/L (15-39); BILIRUBIN,TOTAL 0.7 mg/dL (0.2-1.3); BLOOD UREA NITROGEN 24 mg/dL (7-21); CALCIUM 9.9 mg/dL (8.4-10.5); CARBON DIOXIDE 24 mmol/L (21-33); CHLORIDE 100 mmol/L (95-110); GFR AFRICAN-AMERICAN > 60; GLUCOSE,RANDOM 138 mg/dL (70-110); POTASSIUM 3.6 mmol/L (3.6-5.0); SODIUM 139 mmol/L (132-148); TOTAL PROTEIN 8.1 g/dL (5.8-8.3)
[2016-10-25 16:39] LABS: URINE BILIRUBIN SMALL (NEGATIVE); URINE BLOOD NEGATIVE (NEGATIVE); URINE GLUCOSE (UA) NEGATIVE (NEGATIVE); URINE KETONE TRACE mg/dL (NEGATIVE); URINE LEUKOCYTE ESTERASE NEGATIVE Leu/uL (NEGATIVE); URINE PROTEIN 30 mg/dL (<30 mg/dL); URINE UROBILINOGEN 0.2 E.U./dL (<1 E.U./dL)
[2016-10-25 16:40] LABS: URINE APPEARANCE CLEAR (CLEAR); URINE COLOR YELLOW (YELLOW)
[2016-10-25 17:16] LABS: URINE BACTERIA SMALL (NEG); URINE WBC 0 - 2 /hpf (0-6)
[2016-10-25] MEDS ORDERED: Alum-Mag Hydrox-Simethicone Susp (30 mL) PO PRN (20:58)
[2016-10-25] MEDS ORDERED: Magnesium Hydroxide Susp 30 ml UD PO PRN (20:58)
[2016-10-25 21:37] VITALS: O2SAT 93
--- NOTE | 2016-10-26 03:55 | PCM.BM ---
<Abraham Arriaga - Last Filed: 10/26/16 03:52> Treatment Plan Problems - Problems identified on initial assessmt Agitation Date Initiated: 10/25/16 Time Initiated: 19:00 Assessment reference: HP Status: Active Priority: 2 Hallucinations Date Initiated: 10/25/16 Time Initiated: 19:00 Assessment reference: HP Status: Active Priority: 1 Anxiety Date Initiated: 10/25/16 Time Initiated: 19:00 Assessment reference: HP Status: Active Priority: 3 Treatment assets and liabiliti Patient Assests: ADL independent, negotiates basic needs Patient Liabilities: substance abuse, language/speech - Milieu Protocol Maintain good personal hygiene: daily Encourage regular showers, daily Remind patient to perform daily oral care, daily Assist patient to perform ADL's Conduct patient checks and document Observation sheet: Q15 minutes Maintain personal safety: every shift Educate patient to report safety concerns to staff, every shift Monitor environment for contraband/sharps Medication safety: Monitor for expected outcome, potential side effects: every shift, Assess barriers to learning: every shift, Assess readiness for medication education: every shift Discharge/Continuing Care - Education Needs Education Needs: Patient Medication, Patient Diagnosis/Disease Process - Discharge Discharge Criteria: Free of agitation, Normal sleep pattern <DhavalBailey - Last Filed: 10/26/16 12:59> Treatment assets and liabiliti Patient Liabilities: imparied memory - Milieu Protocol Maintain good personal hygiene: daily Encourage regular showers, daily Remind patient to perform daily oral care, daily Assist patient to perform ADL's Maintain personal safety: every shift Educate patient to report safety concerns to staff, every shift Monitor environment for contraband/sharps Medication safety: Monitor for expected outcome, potential side effects: every shift, Assess barriers to learning: every shift, Assess readiness for medication education: every shift Discharge/Continuing Care - Education Needs Education Needs: Patient Medication, Patient Diagnosis/Disease Process, Patient Community resources, Patient Personal Hygiene/Grooming <Leatha Rodriguez - Last Filed: 10/26/16 14:31> Family Contact Family involvement: Family/SO is involved
[2016-10-26] MEDS: Pantoprazole 40 mg EC Tab PO SCH (06:47)
[2016-10-26 07:57] LABS: CHOLESTEROL 209 mg/dL (130-200); GLUCOSE,FASTING 127 mg/dL (65-110)
--- NOTE | 2016-10-26 09:40 | CARD ---
APPROVED REPORT EKG Measurement Heart [id number] <Conclusion> Sinus rhythm with occasional premature ventricular complexes Possible Inferior infarct, age undetermined Abnormal ECG
--- NOTE | 2016-10-26 23:56 | HP ---
HISTORY OF PRESENT ILLNESS: The patient is a 61-year-old Thai speaking female who feels (inappropriate Palauan) that she could speak a meaningful Palauan. She denies feeling depressed. She indicated that she lives in [facility] for 20 years. 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 She indicated that her family had been coming from [place] to kill her. She has a history and treated for major depressive disorder with psychotic features and reportedly also history of delirium (for unknown reasons). She has previously been hospitalized on the psychiatric unit on 08/09/2016 and follows patient's psychiatrist, Dr. Welsh. She required much redirection, refocusing on initial evaluation and was perseverative and easily distracted and tangential flight of ideas. She admitted to auditory and visual hallucinations. She stated that her son was in the emergency room. The patient lives alone. She reportedly was having difficulty sleeping for 7 days and had a poor appetite. She denies suicidality or homicidality. There is evidence of past history of alcohol use and possible withdrawal presently. She had been hospitalized most recently here from 07/31/2016 to 08/09/2016 with a diagnosis of major depression with psychotic features. The patient does have a history of depression as well as excessive alcohol use. CBC and differential is noncontributory. Urine drug screen was positive for benzodiazepines, negative for alcohol. Biochemical profile showed elevated BUN of 24 with random glucose of 138, triglycerides 176 elevated, cholesterol of 209 elevated, LDL cholesterol direct 131 elevated. The patient will presently be maintained on trazodone 100 mg at bedtime p.r.n., Lexapro 10 mg q.day, Risperdal 0.5 mg q.6 hours p.r.n. and 1 mg q.day. We will continue to monitor for this patient who appears to have a mood disorder with psychotic features. David Borges MD/ PhD
[2016-10-27] MEDS ORDERED: Thiamine 100 mg/ml Inj IM ONE (00:13)
--- NOTE | 2016-10-27 00:24 | CP.PCM.PN ---
Subjective - Date & Time of Evaluation Date of Evaluation: 10/27/16 Time of Evaluation: 00:10 - Subjective Subjective: called by nurse pt is hellucinatiing, pt is admitted with acute psychosis and has been recieving multiple meds including has recierisperidone ativan ,razodone , benadryl .pt has recieved risperidone 2 mg at 9:[address] monae was called by nurse and pt has recieved another 1mg few minutes before . pt has hx of alcohol withdrawl , has not recieved any thiamime. since admission.pt is moving around in the hallway and touchin the floors and mumbling in gambian language. Objective - Vital Signs/Intake and Output Vital Signs (last 24 hours): Temp Pulse Resp BP Pulse Ox 97.9 F 78 18 120/90 93 L 10/26/16 07:33 10/26/16 17:47 10/26/16 07:33 10/26/16 17:47 10/25/16 19:00 - Medications Medications: Current Medications Acetaminophen (Tylenol 325mg Tab) 650 mg PO Q4 PRN PRN Reason: Pain, moderate (4-7) Al Hydrox/Mg Hydrox/Simethicone (Maalox Plus 30 Ml) 30 ml PO DAILY PRN PRN Reason: Upset Stomach Diphenhydramine HCl (Benadryl) 50 mg PO HS [facility] Last Admin: 10/26/16 21:30 Dose: 50 mg Escitalopram Oxalate (Lexapro) 10 mg PO DAILY [facility] Last Admin: 10/26/16 10:13 Dose: 10 mg Lorazepam (Ativan) 1 mg PO Q4 PRN; Protocol PRN Reason: Anxiety Last Admin: 10/26/16 22:55 Dose: 1 mg Magnesium Hydroxide (Milk Of Magnesia) 30 ml PO DAILY PRN PRN Reason: Constipation Pantoprazole Sodium (Protonix Ec Tab) 40 mg PO 0600 [facility] Last Admin: 10/26/16 06:47 Dose: 40 mg Propranolol HCl (Inderal) 20 mg PO BID [facility] Last Admin: 10/26/16 17:47 Dose: 20 mg Risperidone (Risperdal Tab) 1 mg PO DAILY LG PRN Reason: Protocol Last Admin: 10/26/16 10:11 Dose: 1 mg Risperidone (Risperdal Tab) 2 mg PO HS [facility] PRN Reason: Protocol Last Admin: 10/26/16 21:39 Dose: 2 mg Risperidone (Risperdal Tab) 0.5 mg PO Q6 PRN; Protocol PRN Reason: Psychosis Last Admin: 10/26/16 21:38 Dose: 0.5 mg Thiamine HCl (Vitamin B1 Inj) 100 mg IM DAILY LG Thiamine HCl (Vitamin B1 Tab) 100 mg PO ONCE ONE Stop: 10/27/16 00:10 Tramadol HCl (Ultram) 50 mg PO TID PRN PRN Reason: Pain, moderate (4-7) Trazodone HCl (Desyrel) 100 mg PO HS PRN PRN Reason: Insomnia Last Admin: 10/26/16 21:30 Dose: 100 mg - Constitutional Appears: No Acute Distress - Eye Exam Eye Exam: Normal appearance Pupil Exam: PERRL - ENT Exam ENT Exam: Mucous Membranes Moist - Neck Exam Neck Exam: Full ROM - Respiratory Exam Respiratory Exam: Clear to Ausculation Bilateral, NORMAL BREATHING PATTERN - Cardiovascular Exam Cardiovascular Exam: REGULAR RHYTHM - GI/Abdominal Exam GI & Abdominal Exam: Soft - Rectal Exam Rectal Exam: Deferred - Extremities Exam Extremities Exam: Full ROM - Neurological Exam Neurological Exam: Awake - Psychiatric Exam Additional comments: hellucinating. - Skin Skin Exam: Normal Color Assessment and Plan - Assessment and Plan (Free Text) Assessment: psychosis . alcohol withdrawl. Plan: pt has recieved risperidon will give her thiamine 100 mg x1 stat.
[2016-10-27 00:25] VITALS: RESP 22; TEMP 97.3
[2016-10-27] MEDS ORDERED: Thiamine 100 mg/ml Inj IM SCH (08:00)
--- NOTE | 2016-10-27 08:29 | PCM.PYCHPN ---
Psychiatric Progress Note - Psychiatric Progress Note Patient seen today, length of contact: 25 min Problems Identified/Issues Discussed: I reviewed assessment and recent notes. Patient is familiar to me from her prior admission to this unit. Staff notes indicate that patient has been disorganized, restless and unpredictable. She has been wandering on the unit, trying to open doors, moving chairs and talking to herself. Patient required prn medication multiple times. I attempt to interview patient at bedside with Speak and Translate quinton. Presently she remains disorganized and unpredictable. Speech is rapid. Her responses are illogical and often irrelevant. She does report depression and "maybe" hallucinations. She denies pain or discomfort. She indicates that she knows current location however will not respond coherently to questions about orientation despite repeated efforts. She doesn't respond to questions about alcohol use. Patient doesn't appear to be in distress or discomfort. Insight and judgment are poor. Diagnostic Results: Mood Disorder with Psychotic features Medication Change: Yes (Ativan started 1 mg q6 for possible alcohol withdrawal) Medical Record Reviewed: Yes Mental Status Examination - Cognitive Function Attention: Poor Concentration: Poor Association: Loose Fund of Knowledge: Poor - Mood Mood: Depressed - Affect Affect: Broad - Speech Speech: Loud, Pressured - Formal Thought Process Formal Thought Process: Loosening of associations - Suicidal Ideation Suicidal Ideation: No - Homicidal Ideation Homicidal Ideation: No Goal/Treatment Plan - Goal/Treatment Plan Progress Toward Problem(s) and Goals/Treatment Plan: * c/w current tx and plan * Ativan started 1 mg q6 for possible alcohol withdrawal delirium * No new weekend labs thus far * Vitals reviewed and noted below: Selected Entries 10/27/16 00:24 Temperature 97.3 F L Pulse Rate 69 Respiratory 22 Rate Blood Pressure 137/107 H
[2016-10-27] MEDS: Pantoprazole 40 mg EC Tab PO SCH (10:03)
[2016-10-27] MEDS ORDERED: Divalproex 250 mg ER (ONCE DAILY formulation) PO STA (13:58)
[2016-10-27 16:01] VITALS: BP 156/100; PULSE 115
--- NOTE | 2016-10-27 20:24 | CP.PCM.PN ---
Subjective - Date & Time of Evaluation Date of Evaluation: 10/27/16 Time of Evaluation: 20:07 - Subjective Subjective: alled by nurse pt is aggitated, with disorganized behavior and inattension.pt has been constantly moving around touching the floors and climbing the chair and bed. pt was seen by Dr francisco and DR monae and is being treated with multiple doses of stivan risperidon , also was given thiamine last night , dr abdi has been updated by nurse and also was seen by dr koby abdi.pt bp is 105/75 and pulse of 97 after recieving librium and metoprolol. Objective - Vital Signs/Intake and Output Vital Signs (last 24 hours): Temp Pulse Resp BP Pulse Ox 97.3 F L 115 H 22 156/100 H 93 L 10/27/16 00:24 10/27/16 16:00 10/27/16 00:24 10/27/16 16:00 10/25/16 19:00 - Medications Medications: Current Medications Acetaminophen (Tylenol 325mg Tab) 650 mg PO Q4 PRN PRN Reason: Pain, moderate (4-7) Al Hydrox/Mg Hydrox/Simethicone (Maalox Plus 30 Ml) 30 ml PO DAILY PRN PRN Reason: Upset Stomach Chlordiazepoxide (Librium) 25 mg PO Q6 [facility] PRN Reason: Protocol Last Admin: 10/27/16 18:15 Dose: Not Given Diphenhydramine HCl (Benadryl) 50 mg PO HS [facility] Last Admin: 10/26/16 21:30 Dose: 50 mg Docusate Sodium (Colace) 100 mg PO BID [facility] Last Admin: 10/27/16 19:12 Dose: 100 mg Escitalopram Oxalate (Lexapro) 10 mg PO DAILY [facility] Last Admin: 10/27/16 09:13 Dose: 10 mg Lorazepam (Ativan) 1 mg PO Q6 LG PRN Reason: Protocol Last Admin: 10/27/16 19:11 Dose: 1 mg Magnesium Hydroxide (Milk Of Magnesia) 30 ml PO DAILY PRN PRN Reason: Constipation Last Admin: 10/27/16 16:00 Dose: 30 ml Pantoprazole Sodium (Protonix Ec Tab) 40 mg PO 0600 [facility] Last Admin: 10/27/16 10:03 Dose: 40 mg Propranolol HCl (Inderal) 20 mg PO BID [facility] Last Admin: 10/27/16 15:59 Dose: 20 mg Risperidone (Risperdal Tab) 1 mg PO DAILY [facility] PRN Reason: Protocol Last Admin: 10/27/16 09:13 Dose: 1 mg Risperidone (Risperdal Tab) 2 mg PO HS LG PRN Reason: Protocol Last Admin: 10/26/16 21:39 Dose: 2 mg Risperidone (Risperdal Tab) 0.5 mg PO Q6 PRN; Protocol PRN Reason: Psychosis Last Admin: 10/27/16 10:03 Dose: 0.5 mg Tramadol HCl (Ultram) 50 mg PO TID PRN PRN Reason: Pain, moderate (4-7) Last Admin: 10/27/16 11:00 Dose: 50 mg Trazodone HCl (Desyrel) 100 mg PO HS PRN PRN Reason: Insomnia Last Admin: 10/26/16 21:30 Dose: 100 mg - Constitutional Appears: Other (pt is aggitated , withe inattension cognitive decline.) - Head Exam Head Exam: NORMOCEPHALIC - Eye Exam Eye Exam: PERRL - ENT Exam ENT Exam: Mucous Membranes Moist - Respiratory Exam Respiratory Exam: NORMAL BREATHING PATTERN - Cardiovascular Exam Cardiovascular Exam: RRR - Rectal Exam Rectal Exam: Deferred - Extremities Exam Extremities Exam: Full ROM - Neurological Exam Neurological Exam: Awake, CN II-XII Intact - Psychiatric Exam Psychiatric exam: Agitated - Skin Skin Exam: Dry, Warm Assessment and Plan - Assessment and Plan (Free Text) Assessment: acute psychosis/hx of alcohol withdrwl. Plan: pt discussed with Dr monae . transfer pt to ER .
--- NOTE | 2016-10-28 10:32 | PCM.PYCHDC ---
Mental Status Examination - Mental Status Examination Orientation: Person Memory: Impaired Mood: Anxious Affect: Broad Speech: Loud, Pressured Attention: Poor Concentration: Poor Association: Loose Fund of Knowledge: Poor Formal Thought Process: Hallucinations, Delusions, Paranoia, Loosening of associations Description of patient's judgement and insight: Poor insight and judgment Psychotic Thoughts and Behaviors: Patient was completely disorganized, disoriented, rapid speech, sole leveler machine said that it is hard to understand patient's thought process. Suicidal Ideation: No Current Homicidal Ideation?: No Discharge Summary - Discharge Note Reason for Hospitalization: Patient is 61 years old female, [place] descent, history of depression , disorganization, psychotic behavior, delirium as well as alcohol use disorder , prior admission to this unit in 07/2016 for similar symptoms, who was admitted for confusion, anxiety and paranoia. Patient presented to be completely disorganized, disoriented, rapid speech, Laboratory Data: Laboratory Tests 10/25/16 10/25/16 10/25/16 14:35 14:35 14:35 WBC 9.8 D RBC 5.12 Hgb 15.5 Hct 44.6 MCV 87.1 MCH 30.3 MCHC 34.8 RDW 13.2 Plt Count 263 MPV 11.8 H Gran % 77.6 H Lymph % (Auto) 16.7 L Elliott % (Auto) 5.2 Eos % (Auto) 0.3 L Baso % (Auto) 0.2 Gran # 7.61 H Lymph # 1.6 Elliott # 0.5 Eos # 0.0 Baso # 0.02 Sodium 139 Potassium 3.6 Chloride 100 Carbon Dioxide 24 Anion Gap 19 BUN 24 H Creatinine 0.9 Est GFR ( Amer) > 60 Est GFR (Non-Af Amer) > 60 Random Glucose 138 H Fasting Glucose Calcium 9.9 Total Bilirubin 0.7 AST 26 ALT 44 Alkaline Phosphatase 95 Total Protein 8.1 Albumin 4.8 Globulin 3.3 Albumin/Globulin Ratio 1.5 Triglycerides Cholesterol LDL Cholesterol Direct HDL Cholesterol TSH 3rd Generation Urine Color Urine Appearance Urine pH Ur Specific [place] Urine Protein Urine Glucose (UA) Urine Ketones Urine Blood Urine Nitrate Urine Bilirubin Urine Urobilinogen Ur Leukocyte Esterase Urine RBC Urine WBC Ur Epithelial Cells Urine Bacteria Urine Other Salicylates < 1 L Urine Opiates Screen Urine Methadone Screen Acetaminophen < 10.0 L Ur Barbiturates Screen Ur Phencyclidine Scrn Ur Amphetamines Screen U Benzodiazepines Scrn U Oth Cocaine Metabols U Cannabinoids Screen Alcohol, Quantitative RPR 10/25/16 10/25/16 10/25/16 14:35 16:25 16:25 WBC RBC Hgb Hct MCV MCH MCHC RDW Plt Count MPV Gran % Lymph % (Auto) Elliott % (Auto) Eos % (Auto) Baso % (Auto) Gran # Lymph # Elliott # Eos # Baso # Sodium Potassium Chloride Carbon Dioxide Anion Gap BUN Creatinine Est GFR ( Amer) Est GFR (Non-Af Amer) Random Glucose Fasting Glucose Calcium Total Bilirubin AST ALT Alkaline Phosphatase Total Protein Albumin Globulin Albumin/Globulin Ratio Triglycerides Cholesterol LDL Cholesterol Direct HDL Cholesterol TSH 3rd Generation Urine Color Yellow Urine Appearance Clear Urine pH 7.0 Ur Specific [place] >= 1.030 Urine Protein 30 H Urine Glucose (UA) Negative Urine Ketones Trace H Urine Blood Negative Urine Nitrate Negative Urine Bilirubin Small H Urine Urobilinogen 0.2 Ur Leukocyte Esterase Negative Urine RBC 1 - 3 Urine WBC 0 - 2 Ur Epithelial Cells 1 - 3 Urine Bacteria Small Urine Other Mucus Salicylates Urine Opiates Screen Negative Urine Methadone Screen Negative Acetaminophen Ur Barbiturates Screen Negative Ur Phencyclidine Scrn Negative Ur Amphetamines Screen Negative U Benzodiazepines Scrn Positive H U Oth Cocaine Metabols Negative U Cannabinoids Screen Negative Alcohol, Quantitative < 10 RPR 10/26/16 10/26/16 10/26/16 07:00 07:00 07:00 WBC RBC Hgb Hct MCV MCH MCHC RDW Plt Count MPV Gran % Lymph % (Auto) Elliott % (Auto) Eos % (Auto) Baso % (Auto) Gran # Lymph # Elliott # Eos # Baso # Sodium Potassium Chloride Carbon Dioxide Anion Gap BUN Creatinine Est GFR ( Amer) Est GFR (Non-Af Amer) Random Glucose Fasting Glucose 127 H Calcium Total Bilirubin AST ALT Alkaline Phosphatase Total Protein Albumin Globulin Albumin/Globulin Ratio Triglycerides 176 H Cholesterol 209 H LDL Cholesterol Direct 131 H HDL Cholesterol 56 TSH 3rd Generation 2.50 Urine Color Urine Appearance Urine pH Ur Specific [place] Urine Protein Urine Glucose (UA) Urine Ketones Urine Blood Urine Nitrate Urine Bilirubin Urine Urobilinogen Ur Leukocyte Esterase Urine RBC Urine WBC Ur Epithelial Cells Urine Bacteria Urine Other Salicylates Urine Opiates Screen Urine Methadone Screen Acetaminophen Ur Barbiturates Screen Ur Phencyclidine Scrn Ur Amphetamines Screen U Benzodiazepines Scrn U Oth Cocaine Metabols U Cannabinoids Screen Alcohol, Quantitative RPR Nonreactive Consultations:: List each consultation separately and include: 1. Reason for request. 2. Findings. 3. Follow-up Consultations: Dr. Sales Summary of Hospital Course include:: 1. Description of specific treatment plan utilized for patients during their course of treatmen. 2. Summarize the time- course for resolution of acute symptoms and/or regressed behaviors. 3. Describe issues identified and worked on during hospitalization. 4. Describe medication utilized. 5. Describe medical problems identified and treated. 6. Reassessment of suicide risk Summary of Hospital Course: Patient is 61 years old female, [place] descent, history of depression , disorganization, psychotic behavior, delirium as well as alcohol use disorder , prior admission to this unit in 07/2016 for similar symptoms, who was admitted for confusion, anxiety and paranoia. This provider became involved in patient's care on 10/27/16. Patient was completely disorganized, disoriented with rapid speech and actively hallucinating. She required multiple prns. I became concerned that patient was experiencing DT's due to relentless nature of her confusion and hallucinations especially in consideration of her recent noted history of alcohol dependency and elevated vitals on the unit (which could have also been secondary to agitation). Requested that patient be transferred to medicine as a cautionary measure on 10/27/16. - Final Diagnosis (DSM 5) Condition upon Discharge: GUARDED DSM 5: Depression with Psychotic features Alcohol Use Disorder, Severe by hx r/o Alcohol withdrawal delirium Disposition: OTHER INSTITUTION Follow-up Treatment Plan: * c/w current tx and plan * Ativan started 1 mg q6 for possible alcohol withdrawal delirium * No new weekend labs thus far * Vitals reviewed and noted below: Selected Entries 10/27/16 00:24 Temperature 97.3 F L Pulse Rate 69 Respiratory 22 Rate Blood Pressure 137/107 H - Smoking Cessation Smoking Cessation Medication prescribed: No - Antipsychotic Medications Pt discharged on 2 or more routine antipsychotic medications: No
--- NOTE | 2016-10-30 01:45 | CON ---
DATE: 10/26/2016 HISTORY OF PRESENT ILLNESS: The patient is a 61-year-old female who was admitted to 5B psychiatric reed at the [facility] with a diagnosis of acute psychosis. Apparently, the patient was complaining that too many people around her and including family members were drinking too much alcohol. She herself denies drinking any alcohol; however, she became increasingly agitated. She was brought to the emergency room by her son. She was evaluated by psychiatric services and admitted. The patient is known to have past medical history positive for hypertension, varicose vein surgery. She was hospitalized several times in the past with mental status changes, anxiety, and alcohol withdrawal. ALLERGIES: SHE HAS NO KNOWN MEDICAL ALLERGIES. SOCIAL HISTORY: She is known to smoke one pack of cigarette a day. MEDICATIONS ON ADMISSION: Included Lexapro 10 mg, Risperdal 1 mg daily, Risperdal 2 mg at bedtime, Benadryl 50 mg at bedtime, Vicoprofen and tramadol for chronic back pain. When seen, the patient is in the activity room, she appears more excited, more manic, more fidgety then I have ever seen her before. Her speech is very fast, short, disjointed sentences not making any sense. She is expressing hallucinations of seeing children who have or giving a history of 2 children having in the recent past. PHYSICAL EXAMINATION: VITAL SIGNS: Her blood pressure is 124/74, heart rate is 107 and she is afebrile. HEAD, EYES, EARS, NOSE AND THROAT: Unremarkable. NECK: Supple with no lymphadenopathy and no goitre. HEART: Regular, slightly tachycardic. No murmurs are appreciated. LUNGS: Clear to auscultation and percussion. ABDOMEN: Soft and nontender. EXTREMITIES: Free of cyanosis, clubbing or edema. NEUROLOGIC: The patient appears confused. Her speech is incoherent. LABORATORY DATA: Shows white blood cell count 9.8, hemoglobin and hematocrit of 15.5 and 44.6 respectively. Sodium is 139, potassium is 3.6, blood urea nitrogen is 24 and creatinine is 0.9. Nonfasting glucose is 138. Her chest x-ray showed no acute disease and her EKG showed regular sinus rhythm with PVC's and possible old inferior wall myocardial infarction. This does not appear to be changed from EKG's in the past. The patient will be managed by Dr. Borges on the psychiatric reed. From the medical point of view, we will follow the patient periodically. Dani Marroquin MD MTDD
== END 2016-10-27 20:38 | disposition short-term general hospital (02) | DRG 885 ==
LOC: ED 13:58 → ERH 16:20 → PSYC 18:48
PROVIDERS: ADMIT Psychiatry & Neurology Addiction Medicine; ATTEND Psychiatry & Neurology Addiction Medicine
DX: F32.3 Major depressive disorder, single episode, severe with psychotic features (principal); F10.231 Alcohol dependence with withdrawal delirium; I10 Essential (primary) hypertension; Y90.0 Blood alcohol level of less than 20 mg/100 ml

== ENCOUNTER 2016-10-27 20:15 | Inpatient (IN) | payer SELFPAY ==
[2016-10-27 20:16] VITALS: BMI 30.4
--- NOTE | 2016-10-27 21:25 | ED PDOC ---
Arrival/HPI - General Chief Complaint: Medical Clearance Time Seen by Provider: 10/27/16 20:16 Historian: Patient - History of Present Illness Narrative History of Present Illness (Text): 10/27/16 20:20 Zeina Perez is a 61 year old female, whose past medical history includes alcohol abuse, depression, and hypertension, who presents to the Emergency department transferred from psychiatric floor for alcohol withdrawal. As per house doctor, patient was behaving confused and agitated tonight. Patient denies any fever, chills, chest pain, shortness of breath, headache, dizziness, or any other complaints. Time/Duration: Other (tonight) Symptom Onset: Gradual Symptom Course: Unchanged Activities at Onset: Light Context: Other (5B) Past Medical History - Provider Review Nursing Documentation Reviewed: Yes - Infectious Disease Hx of Infectious Diseases: None - Tetanus Immunization Tetanus Immunization: Unknown - Reproductive Menopause: Yes - Cardiac Hx Hypertension: Yes - Pulmonary Hx Respiratory Disorders: No - Neurological Hx Neurological Disorder: Yes (ams) Other/Comment: ETOH ABUSE - HEENT Hx HEENT Disorder: No - Renal Hx Renal Disorder: No - Endocrine/Metabolic Hx Endocrine Disorders: No - Hematological/Oncological Hx Hepatitis B: Yes Hx Hepatitis C: Yes - Integumentary Hx Dermatological Disorder: No - Musculoskeletal/Rheumatological Hx Falls: No - Gastrointestinal Hx Gastrointestinal Disorders: Yes Other/Comment: ETOH ABUSE - Genitourinary/Gynecological Hx Sexually Transmitted Diseases: No - Psychiatric Hx Psychophysiologic Disorder: Yes (Alcohol abuse, heavy smoker) Hx Substance Use: Yes - Past Surgical History Past Surgical History: No Previous - Anesthesia Hx Anesthesia: No - Suicidal Assessment Feels Threatened In Home Enviroment: No Family/Social History - Physician Review Nursing Documentation Reviewed: Yes Family/Social History: Unknown Family HX Smoking Status: Heavy Smoker > 10 Cigarettes Daily Hx Alcohol Use: Yes Hx Substance Use: Yes Hx Substance Use Treatment: No Allergies/Home Meds Allergies/Adverse Reactions: Allergies quetiapine [From Seroquel] Allergy (Verified 10/25/16 21:40) ANGIOEDEMA ziprasidone [From Geodon] Allergy (Verified 10/25/16 21:40) ANGIOEDEMA Home Medications: Home Meds Medication Instructions Recorded Confirmed Acetaminophen [Tylenol 325mg tab] 650 mg PO Q4 PRN 10/27/16 10/27/16 Aluminum Hydroxide/Magnesium 30 ml PO PRN PRN 10/27/16 10/27/16 [Maalox Plus 30 ml] Docusate Sodium [Colace] 100 mg PO BID 10/27/16 10/27/16 LORazepam [Ativan] 1 mg PO Q6 10/27/16 10/27/16 Magnesium Hydroxide [Milk Of 30 ml PO DAILY PRN 10/27/16 10/27/16 Magnesia] Propranolol [Inderal] 20 mg PO BID 10/27/16 10/27/16 Risperidone [Risperdal M-TAB] 0.5 mg PO Q6 PRN 10/27/16 10/27/16 chlordiazePOXIDE [Chlordiazepoxide 25 mg PO Q6 10/27/16 10/27/16 HCl] traZODone [trazodone Hydrochloride] 100 mg PO HS PRN 10/27/16 10/27/16 Review of Systems - Physician Review All systems were reviewed & negative as marked: Yes - Review of Systems Constitutional: Normal. absent: Fevers Eyes: Normal ENT: Normal Respiratory: Normal. absent: SOB, Cough Cardiovascular: Normal. absent: Chest Pain Genitourinary Female: Normal. absent: Dysuria, Frequency, Hematuria, Urine Output Changes Musculoskeletal: Normal. absent: Back Pain, Neck Pain Skin: Normal. absent: Rash Neurological: Normal. absent: Headache, Dizziness Endocrine: Normal Hemo/Lymphatic: Normal Psychiatric: Other (+alcohol withdrawal) Physical Exam Vital Signs Reviewed: Yes Vital Signs Temp Pulse Resp BP Pulse Ox 10/28/16 02:28 109 H 150/81 99 10/28/16 02:25 98 10/28/16 02:03 101 H 18 127/56 L 100 10/27/16 22:16 100 H 18 120/57 L 99 10/27/16 20:17 98 F 118 H 20 122/49 L 95 Temperature: Afebrile Blood Pressure: Normal Pulse: Regular Respiratory Rate: Normal Appearance: Positive for: Well-Appearing, Non-Toxic, Comfortable Pain Distress: None Mental Status: Positive for: Confused, Agitated - Systems Exam Head: Present: Atraumatic, Normocephalic Pupils: Present: PERRL Extroacular Muscles: Present: EOMI Conjunctiva: Present: Normal Mouth: Present: Moist Mucous Membranes Neck: Present: Normal Range of Motion Respiratory/Chest: Present: Clear to Auscultation, Good Air Exchange. No: Respiratory Distress, Accessory Muscle Use Cardiovascular: Present: Regular Rate and Rhythm, Normal S1, S2. No: Murmurs Abdomen: Present: Normal Bowel Sounds. No: Tenderness, Distention, Peritoneal Signs Upper Extremity: Present: Normal Inspection. No: Cyanosis, Edema Lower Extremity: Present: Normal Inspection. No: Edema Neurological: Present: GCS=15, CN II-XII Intact, Speech Normal Skin: Present: Warm, Dry, Normal Color. No: Rashes Psychiatric: Present: Agitated, Other (Confused) Medical Decision Making ED Course and Treatment: 10/27/16 20:20 Impression: 61 year old female sent from psych floor for alcohol withdrawal, agitation, and confusion. Differential Diagnosis included but are not limited to: alcohol withdrawal Plan: -- CT Head w/o contrast -- EKG -- CXR -- Labs, alcohol level, troponin -- Urinalysis -- Ativan -- Reassess and disposition Prior Visits: Notes and results from previous visits were reviewed. On 10/25/2016, pt was seen in the Emergency department for anxiety. Pt was admitted for further psychiatric evaluation. Progress Notes: 10/27/16 22:[address] Marroquin, who is aware and agrees with plan. Accepts pt in to his service. Pt will be admitted to Telemetry for alcohol withdrawal. 10/28/16 01:03 Reviewed radiology, CT Head shows: Brain: Minimal atrophy. No intracranial hemorrhage. No mass. No definite edema. Ventricles: No hydrocephalus. Bones/joints: No acute fracture. Soft tissues: Unremarkable. Sinuses: No acute sinusitis. Mastoid air cells: No mastoid effusion. Orbits: Unremarkable as visualized. IMPRESSION: 1. No definite acute intracranial abnormality. 10/28/16 02:19 Reviewed EKG, sinus tachycardia at 106 bpm. PVCs. No acute changes. - Lab Interpretations Lab Results: 10/27/16 21:22 10/27/16 21:16 Lab Results 10/27/16 22:30: pCO2 35, pO2 97.0, HCO3 23.2, ABG pH 7.43, ABG Total CO2 24.3, ABG O2 Saturation 97.8, ABG O2 Content 16.1, ABG Base Excess -0.7, ABG Hemoglobin 11.8, ABG Carboxyhemoglobin 1.0, POC ABG HHb (Measured) 2.2, ABG Methemoglobin 0.3, ABG O2 Capacity 16.5, Hgb O2 Saturation 96.5, FiO2 36.0 10/27/16 21:22: WBC 14.1 H D, RBC 4.43, Hgb 13.0 D, Hct 38.4, MCV 86.7, MCH 29.3, MCHC 33.9, RDW 13.3, Plt Count 226, MPV 11.9 H, Gran % 84.8 H, Lymph % ( Auto) 9.9 L, Garrard % (Auto) 5.2, Eos % (Auto) 0.0 L, Baso % (Auto) 0.1, Gran # 11.97 H, Lymph # 1.4, Garrard # 0.7 H, Eos # 0.0, Baso # 0.02, Neutrophils % ( Manual) 85 H, Lymphocytes % (Manual) 10 L, Atypical Lymphs % Historian Dramatic [employer], Monocytes % ( Manual) 5, Platelet Evaluation Normal 10/27/16 21:16: Alcohol, Quantitative < 10 10/27/16 21:16: Sodium 148, Potassium 3.4 L, Chloride 107, Carbon Dioxide 29, Anion Gap 15, BUN 37 H, Creatinine 0.9, Est GFR ( Amer) > 60, Est GFR ( Non-Af Amer) > 60, Random Glucose 125 H, Calcium 10.0, Total Bilirubin 0.8, AST 87 H, ALT 64 H, Alkaline Phosphatase 85, Troponin I < 0.01, Total Protein 7.9, Albumin 4.8, Globulin 3.1, Albumin/Globulin Ratio 1.5 I have reviewed the lab results: Yes - RAD Interpretation Radiology Orders: 10/27/16 20:44 HEAD W/O CONTRAST [CT] Stat Edger Runner: ED Physician, Radiologist - EKG Interpretation Interpreted by ED Physician: Yes Type: 12 lead EKG - Medication Orders Current Medication Orders: Chlordiazepoxide (Librium) 25 mg PO Q8 LG PRN Reason: Protocol Last Admin: 10/29/16 06:16 Dose: Not Given Non-Admin Reason: Patient Asleep Diphenhydramine HCl (Benadryl) 25 mg PO HS PRN PRN Reason: Insomnia Escitalopram Oxalate (Lexapro) 10 mg PO DAILY [facility] Last Admin: 10/28/16 11:28 Dose: 10 mg Sodium Chloride (Sodium Chloride 0.9%) 1,000 mls @ 100 mls/hr IV .Q10H LG Last Admin: 10/29/16 00:56 Dose: 100 mls/hr Lorazepam (Ativan) 1 mg IVP Q6H PRN; Protocol PRN Reason: Agitation Last Admin: 10/28/16 09:46 Dose: 1 mg Re-Assess: Reassess Psych Meds Document 10/28/16 10:16 (Rec: 10/28/16 11:28 [id number]) Reassess Psych Med Effective Risperidone (Risperdal Tab) 1 mg PO AMHS LG PRN Reason: Protocol Last Admin: 10/28/16 21:05 Dose: 1 mg Discontinued Medications Sodium Chloride (Sodium Chloride 0.9%) 1,000 mls @ 100 mls/hr IV .Q10H STA Stop: 10/28/16 11:04 Last Admin: 10/28/16 02:30 Dose: 100 mls/hr Lorazepam (Ativan) 2 mg IVP ONCE ONE PRN Reason: Protocol Stop: 10/27/16 20:41 Last Admin: 10/27/16 20:43 Dose: 2 mg Re-Assess: Reassess Psych Meds Document 10/27/16 21:13 (Rec: 10/28/16 11:27 [id number]) Reassess Psych Med Effective Lorazepam (Ativan) Confirm Administered Dose 2 mg .ROUTE .STK-MED ONE Stop: 10/27/16 20:44 Last Admin: 10/27/16 20:43 Dose: Lorazepam (Ativan) Confirm Administered Dose 2 mg .ROUTE .STK-MED ONE Stop: 10/28/16 00:56 Last Admin: 10/28/16 01:00 Dose: Lorazepam (Ativan) 1 mg IVP ONCE ONE PRN Reason: Protocol Stop: 10/28/16 00:59 Last Admin: 10/28/16 00:59 Dose: 1 mg Re-Assess: Reassess Psych Meds Document 10/28/16 01:29 (Rec: 10/28/16 09:47 [facility] [place] [place]) Reassess Psych Med Effective Lorazepam (Ativan) 1 mg IVP ONCE ONE PRN Reason: Protocol Stop: 10/28/16 01:00 Last Admin: 10/28/16 01:02 Dose: - Scribe Statement The provider has reviewed the documentation as recorded by the Yeseniaibciara Coy All medical record entries made by the Yeseniaibciara were at my direction and personally dictated by me. I have reviewed the chart and agree that the record accurately reflects my personal performance of the history, physical exam, medical decision making, and the department course for this patient. I have also personally directed, reviewed, and agree with the discharge instructions and disposition. Disposition/Present on Arrival - Present on Arrival Any Indicators Present on Arrival: No History of DVT/PE: No History of Uncontrolled Diabetes: No Urinary Catheter: No History of Decub. Ulcer: No History Surgical Site Infection Following: None - Disposition Have Diagnosis and Disposition been Completed?: Yes Diagnosis: Alcohol withdrawal hallucinosis Disposition: HOSPITALIZED Disposition Time: 22:20 Condition: FAIR
[2016-10-27 21:32] LABS: BASO # 0.02 K/mm3 (0.0-2.0); BASO % 0.1 % (0.0-3.0); GRAN # 11.97 (1.4-6.5); GRAN % 84.8 % (50.0-68.0); HEMATOCRIT 38.4 % (36.0-48.0); LYMPH # 1.4 (1.2-3.4); LYMPH % 9.9 % (22.0-35.0); MEAN CELL VOLUME 86.7 fl (80.0-105.0); MEAN CORPUSCULAR HEMOGLOBIN 29.3 pg (25.0-35.0); MEAN CORPUSCULAR HGB CONC 33.9 g/dl (31.0-37.0); MEAN PLATELET VOLUME 11.9 fl (7.0-11.0); MONO # 0.7 (0.1-0.6); MONO % 5.2 % (1.0-6.0); PLATELET COUNT 226 10^3/uL (120.0-450.0); RED CELL DISTRIBUTION WIDTH 13.3 % (11.5-14.5); WHITE BLOOD COUNT 14.1 10^3/ul (4.5-11.0)
[2016-10-27 21:40] LABS: ALB/GLOB RATIO 1.5 (1.1-1.8); ALKALINE PHOSPHATASE 85 U/L (38-133); ALT/SGPT 64 U/L (7-56); AST/SGOT 87 U/L (15-39); BILIRUBIN,TOTAL 0.8 mg/dL (0.2-1.3); BLOOD UREA NITROGEN 37 mg/dL (7-21); CARBON DIOXIDE 29 mmol/L (21-33); GFR AFRICAN-AMERICAN > 60; GLUCOSE,RANDOM 125 mg/dL (70-110); POTASSIUM 3.4 mmol/L (3.6-5.0); SODIUM 148 mmol/L (132-148); TOTAL PROTEIN 7.9 g/dL (5.8-8.3)
[2016-10-27 21:42] LABS: CHLORIDE 107 mmol/L (98-107)
[2016-10-27 21:53] LABS: TROPONIN I < 0.01 ng/mL
[2016-10-27 22:18] LABS: NEUTROPHIL 85 % (50.0-70.0); PLATELET ESTIMATE NORMAL (NORMAL)
[2016-10-27 22:45] LABS: ARTERIAL BLOOD GAS HCO3 23.2 mmol/L (21-28); ARTERIAL BLOOD GAS O2 CAPACITY 16.5 mL/dl (16-24); ARTERIAL BLOOD GAS O2 CONTENT 16.1 ML/dl (15-23); ARTERIAL BLOOD GAS PH 7.43 (7.35-7.45); ARTERIAL BLOOD HGB O2 SAT 96.5 % (95.0-98.0); HHB 2.2 % (0-5); METHEMOGLOBIN 0.3 % (0.0-3.0)
--- NOTE | 2016-10-28 00:55 | CT ---
EXAM: CT Head Without Intravenous Contrast CLINICAL HISTORY: 61 years old, female; Signs and symptoms; Altered mental status/memory loss; Additional info: AMS TECHNIQUE: Axial computed tomography images of the head/brain without intravenous contrast. All CT scans at this facility use one or more dose reduction techniques, viz.: automated exposure control; ma/kV adjustment per patient size (including targeted exams where dose is matched to indication; i.e. head); or iterative reconstruction technique. COMPARISON: CT - HEAD W/O CONTRAST 08/30/2016 1:40:29 PM FINDINGS: Brain: Minimal atrophy. No intracranial hemorrhage. No mass. No definite edema. Ventricles: No hydrocephalus. Bones/joints: No acute fracture. Soft tissues: Unremarkable. Sinuses: No acute sinusitis. Mastoid air cells: No mastoid effusion. Orbits: Unremarkable as visualized. IMPRESSION: 1. No definite acute intracranial abnormality.
[2016-10-28] MEDS ORDERED: Sodium Chloride 0.9% 1,000 ML IV STA (01:05)
--- NOTE | 2016-10-28 11:03 | CARD ---
APPROVED REPORT EKG Measurement Heart [id number] <Conclusion> Sinus tachycardia with frequent premature ventricular complexes Otherwise normal ECG
--- NOTE | 2016-10-28 11:09 | RAD ---
PROCEDURE: CHEST RADIOGRAPH, 1 VIEW HISTORY: pain COMPARISON: 10/25/2016 FINDINGS: LUNGS: Minimal bibasilar linear subsegmental atelectasis. No acute infiltrate. PLEURA: No pneumothorax or pleural fluid seen. CARDIOVASCULAR: Normal. OSSEOUS STRUCTURES: No significant abnormalities. VISUALIZED UPPER ABDOMEN: Normal. OTHER FINDINGS: None. IMPRESSION: No active disease.
--- NOTE | 2016-10-28 12:17 | CON ---
DATE: HISTORY OF PRESENT ILLNESS: The patient is a 61-year-old female, [place] descent, with a history of a disorganization, psychotic behavior, hallucinations as well as delirium during her prior hospitalization on the psychiatric unit in July 2016. At that time, she was given a diagnosis of major depressive disorder with psychotic features as well as delirium due to another medical condition persistent mixed level of activity as well as electrolyte abnormality. She was discharged on a regimen that included Risperdal 1 mg in the morning and 2 mg at night for psychosis as well as Lexapro 10 mg daily for depression and anxiety as well as Benadryl 25 mg in a.m. and bedtime for EPS prevention. During that hospitalization, she was treated with Librium for alcohol withdrawal. It is now October 2016 and the patient was admitted to the psychiatric floor on 10/25/2016 for very similar presentation. However, while she was on the floor, she appeared to be exhibiting worse and more resistant symptoms of psychosis and specifically hallucinations and confusion than she had previously been demonstrating during her hospitalization in July 2016. It is worth noting that she was being treated for possible alcohol withdrawal, though it is unclear whether she was drinking prior to this admission. The patient had required multiple p.r.n. without any benefit on the unit and she was also not sleeping. This provider tried interviewing her whether he could translation at in Ugandan as well as in Omani, because she cannot communicate effectively enough in Omani and her language still are considered to be fair in this respect. However, the patient was noted to be quite disorganized and illogical and disoriented and even Ugandan translators were not able to have an effective and meaningful dialogue with her. This provider was concerned that the patient was suffering from and requested a medical followup in this regard. In consideration of the patient's psychosis and behavior as well as elevated vitals on the unit, which may have been due to agitation and possibility of alcohol withdrawal conservative measure was taken that the patient was transferred to the ER and then to the ICU for continuing monitoring. I met the patient at the bedside this morning and attempted to interview her both in O[place]i and using a Ugandan translation, but she continues to be confused, although her behavior does appear to be in better control and she can respond to direction much more effectively at least tenuously this morning. She continues to report that she is depressed. She does not want to . I could not determine whether she is hallucinating that was difficult to communicative with her, due to the patient's current disorganization. However, she did not appear to be responding to internal stimuli. It is worth noting that she was restless all night and difficult to manage in the ICU as well. She is little bit more responsive and focuses this morning and reports pain related to the site of blood draw that she had earlier; otherwise, she denies any other discomfort or pain at the time of my interview. The patient is aware that she is in the hospital, cannot provide correct month or year or does not want to provide correct month or year. Eye contact varies throughout the course of our conversation, but again she can be redirected much more easily than she could yesterday on the unit. Thought process is still considered to be incoherent and her insight and judgement are lacking. Vital signs were reviewed as well as laboratory results. MEDICATIONS: On the unit are Ativan 1 mg IV q.6h. p.r.n. IMPRESSION: 1. Major depressive disorder with psychotic features by history. 2. Alcohol use disorder severe by history. 3. Rule out alcohol withdrawal delirium, appears to be tenuously improving at this time. RECOMMENDATIONS: Include providing, Risperdal 1 mg a.m. and bedside for the patient's history of hallucination as well as continuing Ativan for preserved alcohol withdrawal delirium. We will also restart Lexapro for the patient's history of depression. The patient will be followed up by psychiatry while she is being treated medically and please provide p.r.n. as necessary for the patient's behavior, Haldol 1 mg q.6h. p.r.n. with Ativan 0.5 mg q.6h. p.r.n. Linda Lozano MD
[2016-10-28] MEDS: Sodium Chloride 0.9% 1,000 ML IV SCH (19:42)
[2016-10-28 19:56] LABS: URINE BILIRUBIN NEGATIVE (NEGATIVE); URINE BLOOD NEGATIVE (NEGATIVE); URINE GLUCOSE (UA) NEGATIVE (NEGATIVE); URINE KETONE 15 mg/dL (NEGATIVE); URINE LEUKOCYTE ESTERASE NEGATIVE Leu/uL (NEGATIVE); URINE PROTEIN 30 mg/dL (<30 mg/dL)
[2016-10-28 20:11] LABS: URINE APPEARANCE CLEAR (CLEAR); URINE COLOR YELLOW (YELLOW)
[2016-10-28 20:20] LABS: URINE BACTERIA MOD (NEG); URINE RBC NEGATIVE /hpf (0-2)
[2016-10-29] MEDS: Sodium Chloride 0.9% 1,000 ML IV SCH ×3 (00:56→11:40)
[2016-10-29 06:51] LABS: BASO # 0.02 K/mm3 (0.0-2.0); BASO % 0.2 % (0.0-3.0); EOS # 0.1 (0.0-0.7); EOS % 0.6 % (1.5-5.0); GRAN # 6.51 (1.4-6.5); GRAN % 67.4 % (50.0-68.0); HEMATOCRIT 37.4 % (36.0-48.0); LYMPH # 2.3 (1.2-3.4); LYMPH % 23.3 % (22.0-35.0); MEAN CELL VOLUME 89.9 fl (80.0-105.0); MEAN CORPUSCULAR HEMOGLOBIN 29.3 pg (25.0-35.0); MEAN CORPUSCULAR HGB CONC 32.6 g/dl (31.0-37.0); MEAN PLATELET VOLUME 11.7 fl (7.0-11.0); MONO # 0.8 (0.1-0.6); MONO % 8.5 % (1.0-6.0); RED CELL DISTRIBUTION WIDTH 14.4 % (11.5-14.5); WHITE BLOOD COUNT 9.7 10^3/ul (4.5-11.0)
[2016-10-29 07:03] LABS: ALB/GLOB RATIO 1.4 (1.1-1.8); ALKALINE PHOSPHATASE 67 U/L (38-133); ALT/SGPT 52 U/L (7-56); AST/SGOT 44 U/L (15-39); BILIRUBIN,TOTAL 0.7 mg/dL (0.2-1.3); BLOOD UREA NITROGEN 22 mg/dL (7-21); CALCIUM 8.9 mg/dL (8.4-10.5); CARBON DIOXIDE 22 mmol/L (21-33); CHLORIDE 118 mmol/L (98-107); GFR AFRICAN-AMERICAN > 60; GLUCOSE,RANDOM 103 mg/dL (70-110); POTASSIUM 3.1 mmol/L (3.6-5.0); TOTAL PROTEIN 6.5 g/dL (5.8-8.3)
[2016-10-29 07:06] LABS: SODIUM 153 mmol/L (132-148)
[2016-10-29] MEDS: Potassium Chloride 20 mEq ER Tab PO SCH ×2 (11:00→18:30)
--- NOTE | 2016-10-29 21:03 | PN ---
DATE: 10/28/2016 SUBJECTIVE: The patient is a 61-year-old female who was initially admitted to [facility] with a diagnosis of acute psychosis. She showed signs of hallucinations and delusions, it was suspected that she was going through alcohol withdrawal; therefore, was transferred to the emergency room and admitted to the intensive care unit of [facility]. In [facility] intensive care unit, her vital signs are stable with a blood pressure of 127/56, heart rate is 111, and she is afebrile at 99 degrees Fahrenheit. Her serum chemistries are remarkable for a slightly depressed potassium of 3.4. The patient remains in a hyperactive/manic state, her speech is rapid, incoherent. She is still expressing some hallucinations. She was saying something about chickens that she had seen. She also expressed concern that one of the nurses and a staff had been in a family affair of hers and was drinking too much alcohol. Once again, the patient denies having taken any alcohol prior to this hospitalization. We are continuing to follow the patient closely and treating with benzodiazepines such as Ativan and Librium. Dani Marroquin MD
--- NOTE | 2016-10-30 02:15 | PN ---
DATE: SUBJECTIVE: The patient is a 61-year-old [place]-descent female. Initially, the patient was admitted on the Psychiatric Inpatient Unit for psychotic symptoms. Over the weekend, the patient developed delirium, was transferred to the ICU Unit. This writer technical publications is following the patient up on ICU Unit. This writer technical publications is very familiar with the patient from the previous admission to the Psychiatric Inpatient Unit, which took place here in [place] in July 2016. The patient most likely had delirium due to alcohol consumption as well as electrolyte imbalance as well as possible depressive episode with psychotic symptoms. The patient was discharged on Risperdal 1 mg in the morning and 2 mg at the night time. The patient is supposed to be followed up with Dr. Eagle Solomon in [facility]. The patient was seen and evaluated today in the afternoon. The patient presented to be alert and oriented in self, as well as the patient knows that she is in the hospital, but she is not aware what is the name of the hospital. The patient is aware of the year, months, but not date or day of the week. The patient seems to remember this writer technical publications, but was not able to remember this writer technical publications's name. The patient was not aware what happened and what was the circumstances of her admission to the Psychiatric Inpatient Unit. The patient said that she was "lost touch" with reality. The patient said that right now she feels little bit better. The patient complained that she feels anxious inside. The patient obviously has upper extremity tremor. The patient said that she feels at times confused. The patient has constructive apraxia. The patient was not able to draw a clock picture that was placed in the chart. The patient had difficulty to concentrate and stay focused on memory problems. The patient was not able to have 3 objects to record in 3 minutes. The patient obviously in delirium stage. The patient gave permission to talk to her son Bailey and when this writer technical publications asked about phone number, the patient said that she needs to write it down first. After the patient wrote down the phone number, the patient said you need to read it backwards. The patient is obviously confused and psychotic. This writer technical publications had prolonged conversation with the patient's son Bailey, phone number is [phone]. The patient lives independently. The patient said that she was working long hours when she picked up a lot of extra work and overtime, but based on the information from the patient's son, she is not working since September. The patient's son was not aware if the patient was drinking recently. The patient's son stated that "if she drinks, she is very good in hiding it," but Bailey expressed concerns about the patient's medications, sometimes the patient takes more than she should, sometimes, the patient is taking painkillers, which could contribute to the patient's confusion. As per collateral information from the son, change in mental status happened within 3 days. Before that, the patient was at her baseline functionally. This writer technical publications called [place] the [place] [phone]. Based on information, the patient was on Klonopin 1 mg 3 times a day, filled on October 01, prescribed by Dr. Eagle Solomon 30-day supply was given. The patient was on Lexapro 10 mg a day, prescribed by Dr. Eagle Solomon, filled on 10/01/2016, one-month supply was given, as well as temazepam 15 mg one to two pills at night time, prescribed by Dr. Eagle Solomon, filled on 10/01/2016, one-month supply was given. Also the patient was on Vicoprofen 7.5/200 mg daily, prescribed by Dr. Marroquin, and the rest of blood pressure medication list. PAST PSYCHIATRIC HISTORY: As per history, the patient has history of altered mental status, history of alcohol use disorder, admission to the Psychiatric Inpatient Unit for the same problems; altered mental status, psychosis, and hallucinations. MENTAL STATUS EXAMINATION: The patient presented to be confused, pleasant, and cooperative. There is mild upper extremity tremor, intense eye contact. The patient was disorganized. Mood described as feeling little bit better. Affect was constricted, reactive. Thought process, circumstantial, at times disorganized. Thought content, the patient obviously has episodes of confusion and hallucinations. Insight and judgement limited. Impulses are unpredictable. As per staff, the patient has episodes of confusion and agitation. IMPRESSION: Most likely, the patient has delirium stage, which would relate to withdrawal from the benzodiazepines and barbiturates. The patient was on Klonopin 1 mg 3 times a day, as well as on temazepam. The patient also was on Vicodin. Based on collateral information, at times, the patient takes more medications than she should. Also this writer technical publications cannot exclude alcohol withdrawal, delirium, but the patient denied drinking alcohol. The patient also had leukocytosis. At present moment, the patient is in ICU. The patient also has history of major depressive disorder. Please see notes for more detailed information and plan. Continue current management. Dose of Librium was on hold because the patient was sleeping. This writer technical publications will give stat dose of Librium. The patient needs to have monitored vital signs. The patient has tachycardia. The patient's medication should be multivitamins, thiamine, and folic acid. In case, if the patient was drinking alcohol, Lexapro will be continued. Librium 25 mg q.8 hours scheduled. Ativan 1 mg IV push q.6 hours as needed. K-Dur as well as Risperdal 1 mg in the morning and 2 mg at the night time. Collaterals were obtained from the patient's son, as well as medications confirmed [place] [facility] The patient is on one-to-one, please continue that, because the patient has episodes of confusion. This writer technical publications will followup on this patient and advise accordingly, most likely, the patient needs further evaluation and stabilization to the Psychiatric Inpatient Unit. Should you have any questions, give me a call back. Thank you very much for letting me participate in the care of your patient. Jerilyn Chaidez MD
--- NOTE | 2016-10-30 06:32 | HP ---
HISTORY OF PRESENT ILLNESS: The patient is a 61-year-old female, who was admitted to the intensive care unit through the emergency room from [facility]. The patient was seen in consultation earlier on the day of admission. She was noted to be quite manic. She was on one-to-one observation. Apparently, the patient was ambulating through the halls, she began seeing things, hallucinating. It was suggested that she may be going through alcohol withdrawals even though the patient denies drinking any alcohol prior to hospitalization. She was therefore transferred to the emergency room for evaluation and admission to the medical department. She is known to have a past medical history positive for hypertension. She had been hospitalized several times in the past for mental status changes and EtOH withdrawal. However, I have never seen the patient as manic as she is during this presentation. She is status post varicose vein surgery. The patient was last seen in our office on 09/17. At that time, she said she was out of work since 08/28 and she quit work. However, the local [employer] says that she was discharged/fired from her job because of being under the influence. When this was presented to the patient at the time, she said that she was not drunk and not under the influence, that it was very hot at her place of work and she simply passed out. Either way, the patient is quite in a manic state at this point. She is speaking rapidly incoherently short, disjointed phrases. She appears to have been hallucinating. She was treated with Ativan. PHYSICAL EXAMINATION: LUNGS: Clear. HEART: Regular. ABDOMEN: Soft and nontender. EXTREMITIES: Free of cyanosis, clubbing or edema. LABORATORY STUDIES: Revealed the white blood cells to be 14.1, hemoglobin and hematocrit are 13.0 and 33.4 and platelet count is 226. Sodium is 148, potassium is 3.4, BUN and creatinine are 37 and 0.9 respectively. The liver enzymes are elevated with AST being 87, ALT of 64. EKG shows sinus tachycardia with PVCs. Chest x-ray shows no acute disease. CAT scan of the head is negative. ASSESSMENT AND PLAN: So, the patient is admitted to the intensive care unit with possible alocohol withdrawal syndrome. She is being treated with Ativan intravenously as needed. She is on one-to-one observation. I will be adding Librium 25 mg three times a day to the regimen and we will continue to follow the patient closely. Dani Marroquin MD
[2016-10-30 06:41] LABS: ALB/GLOB RATIO 1.2 (1.1-1.8); ALKALINE PHOSPHATASE 68 U/L (38-133); ALT/SGPT 49 U/L (7-56); AST/SGOT 37 U/L (15-39); BILIRUBIN,TOTAL 0.6 mg/dL (0.2-1.3); BLOOD UREA NITROGEN 20 mg/dL (7-21); CALCIUM 8.9 mg/dL (8.4-10.5); CARBON DIOXIDE 23 mmol/L (21-33); CHLORIDE 116 mmol/L (95-110); GFR AFRICAN-AMERICAN > 60; GLUCOSE,RANDOM 110 mg/dL (70-110); POTASSIUM 3.8 mmol/L (3.6-5.0); SODIUM 146 mmol/L (132-148); TOTAL PROTEIN 5.8 g/dL (5.8-8.3)
[2016-10-30 06:46] LABS: HEMATOCRIT 36.7 % (36.0-48.0); MEAN CELL VOLUME 90.2 fl (80.0-105.0); MEAN CORPUSCULAR HEMOGLOBIN 29.5 pg (25.0-35.0); MEAN CORPUSCULAR HGB CONC 32.7 g/dl (31.0-37.0); MEAN PLATELET VOLUME 11.7 fl (7.0-11.0); RED CELL DISTRIBUTION WIDTH 14.5 % (11.5-14.5); WHITE BLOOD COUNT 7.2 10^3/ul (4.5-11.0)
[2016-10-30] MEDS: Multivitamin With Minerals Tab PO SCH (08:30)
[2016-10-30] MEDS: Multivitamin Vitamin B Complex (Nephro-Vite) Tab PO SCH (08:30)
[2016-10-30] MEDS: Potassium Chloride 20 mEq ER Tab PO SCH (09:33)
--- NOTE | 2016-10-30 11:50 | PN ---
SUBJECTIVE: The patient is a 61-year-old Occitan female with history of alcohol use disorder. Initially, the patient was admitted into psychiatric inpatient unit. The patient was found to have DT, was transferred to ICU. This fiction and nonfiction writer prose was following up on this patient since yesterday. Please see initial note from Dr. Lozano for more detailed information. The patient was seen today for followup. The presented to be alert, appears to be anxious, minimizing her symptoms. The patient reported that she feels much better and she is ready to go home. At the same time, the patient has periods of confusion, hallucinations. The patient also has vital signs which are not stable. The patient is tachycardic, 119; blood pressure 128/85; respirations 30; oxygen saturation is 95%. The patient also has obvious upper extremity tremor. Speech is overproductive as well as disorganized. From this fiction and nonfiction writer prose's perspective, the patient does not have the capacity to sign against medical advice from the ICU unit. Going back to the patient's medication list, the patient was on Librium 25 mg q.8 hours scheduled. We will start tapering down Librium. The patient also is on Benadryl at nighttime as needed. The patient did not have medication at the nighttime. The patient is on Lexapro 10 mg daily, Ativan 1 mg IV push q.6 hours as needed, last dose was given on . This fiction and nonfiction writer prose started multivitamins, thiamine, and folic acid. The patient is on potassium chloride 20 mEq twice a day. The patient also is on Risperdal 1 mg twice a day. The patient also is on vitamin D complex. Labs also reviewed, seems to be more stable. There are no signs of leukocytosis. Chemistry also reviewed. Sodium 146, potassium 3.8, chloride 116. Urinalysis was reviewed. Ketones 15 and protein 30. Urobilinogen is 1.0. Urinalysis was done on 28 of October. Toxicology, benzodiazepines positive. Yesterday, this fiction and nonfiction writer prose confirmed the patient's medication. The patient was on Klonopin 1 mg 3 times a day, Lexapro 10 mg daily, temazepam 15 mg one to two pills at the nighttime and also the patient was on Vicoprofen. Please see yesterday's notes for more detailed information. This fiction and nonfiction writer prose had discussion with the nursing staff as well as resident. Notes from Dr. Marroquin reviewed. MENTAL STATUS EXAMINATION: The patient appears to be alert, confused, intermittent eye contact, appears anxious. Speech was overproductive, at times disorganized. The patient was smiling inappropriately. Mood described as "I feel perfectly fine." Affect was labile. The patient was smiling one minute and other minute the patient started to cry. Thought process is disorganized. Thought content, the patient denied visual, auditory, or tactile hallucinations, but based on the report, the patient has episodes of confusion and visual hallucinations based on Dr. Marroquin's note. The patient was seen ____ yesterday. Also, as per the patient's son, the patient was seeing people who are already. Also, the patient was talking to the people from [place] and these people were not nearby. The patient denied thoughts of harming herself or others. Denied intent or plan. Insight and judgment are very limited. Impulses are better controlled but still unpredictable. IMPRESSION: Based on the history and labs, the patient denied that she was using alcohol, but at the same time, mostly likely, the patient had withdrawal symptoms from benzodiazepines because the patient was prescribed Klonopin 1 mg 3 times a day as well as temazepam about 30 mg at the nighttime. As per collateral information from the patient's son, the patient was using more than she should. Mostly likely, withdrawal symptoms were related to benzodiazepines withdrawal. The patient's delirium stage is improving. The patient has history of major depressive disorder as well as anxiety disorder. Rule out sedative anxiolytics misuse and abuse. The patient also had electrolyte imbalance which contributed to the patient's altered mental status. PLAN: We will continue Risperdal as it is. We will resume Klonopin 1 mg 3 times a day which was confirmed by the patient's pharmacy. We will continue Lexapro 10 mg daily. We will start tapering down Librium to 25 mg twice a day scheduled. Multivitamins, thiamine, and folic acid will be continued. Collaterals appreciated from the patient family son. Medications were confirmed by [facility]. At present moment, the patient does not have the capacity to sign against medical advice. Discussed with the nursing staff. At present moment, the patient does not need to be on one-to-one because the patient is more alert and delirium is improving. This fiction and nonfiction writer prose will follow up on this patient tomorrow. Should you have any questions, give me a call back. Thank you very much for letting me participate in care of your patient. Jerilyn Chaidez MD
--- NOTE | 2016-10-30 13:55 | PN ---
DATE: 10/29/2016 SUBJECTIVE: The patient is a 61-year-old female who was initially admitted to [facility] with acute psychosis. She showed signs of hallucinations and delusions. She was on one-to-one observation in the psychiatric reed. It was felt that the patient might be going through alcohol withdrawal. Therefore, she was transferred to the intensive care unit. The patient had been very manic, hyper, talking extremely fast in short disjointed sentences and phrases. She expressed hallucinations. She was treated with Ativan and Librium and when seen today, the patient is much more her normal baseline mental status. She is calmer. She recognizes me. She is able to stay on point with our conversation and she is speaking in complete sentences. She claims she is feeling much better. She does not recall much of her past experiences hospital stay on the psychiatric reed. PHYSICAL EXAMINATION: VITAL SIGNS: Her vital signs are stable with her blood pressure of 121/71 with heart rate of 93 and she is afebrile. LABORATORY STUDIES: Revealed that her liver enzymes are normalizing with the AST down to 44 and ALT is down to 52. Her CBC and chemistries are only remarkable for depressed potassium of 3.1. IMPRESSION AND PLAN: Therefore, potassium will be supplemented today and we will continue to follow the patient closely. Dani Marroquin MD
--- NOTE | 2016-10-30 14:18 | PN ---
DATE: The patient is a 61-year-old female with past medical history positive for hypertension, chronic low back pain. She was hospitalized several times for ETOH withdrawal as well as mental status changes in the past. She was admitted on 10/27/2016 to the psychiatric reed with diagnosis of acute psychosis. She was later transferred to the intensive care unit at [facility] with the diagnosis of possible ETOH withdrawal. The patient has been treated with benzodiazepines, Ativan and Librium. When seen yesterday, her mental status was markedly changed. When seen today, Saturday, the patient is once again at her baseline. She is sitting in the chair at bedside. She is still on one-to-one precautions, one-to-one observation; however, she is calm. She speaks in full sentences. She recognizes me. She saying that she wants to be discharged because her insurance ran out and she has no coverage. As per the nursing staff, she wanted to sign against medical advice earlier; however, Dr. Jerilyn Chaidez, her psychiatrist disapproved of this plan. The patient shows no abnormalities on physical exam. The heart is regular. The lungs are clear. The extremities are free of cyanosis, clubbing or edema. Her blood pressure this morning was 128/85 with a heart of 119. Her laboratory studies including CBC and CMP are normal/acceptable. At this point, we will be transferring the patient to a med surg floor. I did not feel she is in danger of delirium tremens. Of note, if the patient's credibility. The patient denies drinking any alcohol for the past 5 years. When looking back through the hospital records back to 2010 and Indeed every hospitalization shows her alcohol level has been less than 10. Also, of note several times in her records shows that the patient has a history of hepatitis C. I looked back to my office records for the past 16 years that I have known this patient and I have never seen a positive hepatitis lab report. Therefore, hepatitis profile is ordered with tomorrow morning's labs. We will be transferring the patient to the med surg floor and after that possible transfer back to . Dani Marroquin MD
[2016-10-31 05:49] LABS: HEMATOCRIT 35.2 % (36.0-48.0); MEAN CELL VOLUME 88.7 fl (80.0-105.0); MEAN CORPUSCULAR HGB CONC 32.7 g/dl (31.0-37.0); MEAN PLATELET VOLUME 11.4 fl (7.0-11.0); RED CELL DISTRIBUTION WIDTH 14.1 % (11.5-14.5)
[2016-10-31 06:09] LABS: ALB/GLOB RATIO 1.1 (1.1-1.8); ALKALINE PHOSPHATASE 60 U/L (38-133); ALT/SGPT 39 U/L (7-56); AST/SGOT 26 U/L (15-39); BILIRUBIN,TOTAL 0.5 mg/dL (0.2-1.3); BLOOD UREA NITROGEN 16 mg/dL (7-21); CALCIUM 8.7 mg/dL (8.4-10.5); CARBON DIOXIDE 22 mmol/L (21-33); CHLORIDE 114 mmol/L (95-110); GFR AFRICAN-AMERICAN > 60; GLUCOSE,RANDOM 92 mg/dL (70-110); POTASSIUM 3.3 mmol/L (3.6-5.0); SODIUM 144 mmol/L (132-148); TOTAL PROTEIN 5.6 g/dL (5.8-8.3)
[2016-10-31 08:07] VITALS: BP 134/85; PULSE 92; RESP 20; TEMP 97.8; O2SAT 95
[2016-10-31] MEDS: Multivitamin With Minerals Tab PO SCH (08:54)
[2016-10-31] MEDS: Multivitamin Vitamin B Complex (Nephro-Vite) Tab PO SCH (08:54)
--- NOTE | 2016-10-31 22:06 | PN ---
DATE: SUBJECTIVE: The patient is a 61-year-old [place] female with history of alcohol use disorder, claims sobriety for the past 5 years. The patient initially was admitted to the psychiatric inpatient unit. The patient was found to be in acute delirium stage, was transferred to ICU. The patient was then downgraded to the 3rd floor. The patient was followed up for evaluation of altered mental status as well as restless, anxious and agitated behavior. Please see Dr. Lozano's note for more detailed information. This content writer is following patient up for past 3 days. Initially, the patient presented to be very confused, in delirium stage. Over the past 2 days, the patient is improving significantly. The patient was downgraded to 3rd floor and this content writer is following patient today. The patient presented to be alert and oriented. Mental status is improving. The patient Mini-Cog was improving. The patient was able to recall 3 objects as well as was able to draw the clock. Please see documentation in the chart. The patient remembered this content writer by her name. The patient reported that she feels much better. Thought process is more organized. At the same time, the patient admitted that she was taking more benzodiazepines than she was prescribed and apparently she ran out of that medication. This content writer educated the patient about the importance of taking medication that was prescribed, not taking more than she should, about potential delirium, about her condition. The patient verbalized understanding. This content writer confirmed medications from the pharmacy and please see initial followup note by this content writer on Saturday. This content writer also had phone conversation with Dr. Marroquin today. Treatment plan was discussed in details and differential diagnosis was discussed with the primary care physician as well. Going back to the patient presentation, the patient's vital signs are better. Temperature 97.8, pulse is 92, blood pressure is 134/85, respirations 20, oxygen saturation is 95. MEDICATIONS: Reviewed. The patient was on Librium 25 mg twice a day; the patient is on tapering dose, today it will be 10 mg twice a day. At this same time, this content writer will increase the dose of Klonopin because the patient most likely will be discharged today, 2 mg twice a day. The patient is on Benadryl 25 mg at the nighttime, Lexapro 10 mg, Ativan 1 mg IV push q. 6 hours as needed for benzodiazepine withdrawal, most recent was on , today is 10/31/2016. multivitamin, Risperdal 1 mg twice a day, tramadol 50 mg q. 8 hours and the patient has multivitamins. LABORATORY DATA: Labs reviewed. From today, seems to be stable. Potassium 3.3, chloride 114. Urine from the , there is no new results. Serology is negative for hepatitis. MENTAL STATUS EXAMINATION: The patient appears to be alert, oriented, pleasant, cooperative. Personal hygiene is much better. Fair eye contact. Speech was normal rate, tone, quality, and quantity. Mood described as "I feel great." Affect was reactive, mood congruent. Thought process was coherent and goal directed, more linear. Thought content, the patient denied visual, auditory, or tactile hallucinations, denied paranoid ideation. The patient denied thoughts of harming herself or others. Denied intent or plan. Insight and judgment fair. Impulses are well controlled. IMPRESSION: Based on the history and labs, most likely the patient was withdrawing from the benzodiazepines, which the patient was taking more than she was prescribed. The patient also was on temazepam as well as pain killers. This content writer doubts that the patient was using alcohol because the patient denied as well as all of her labs for the past 5 years, alcohol level was less than 10 and also based on collateral information from her son, the patient most likely was not drinking. The patient also has history of major depressive disorder and anxiety disorder. Most likely, the patient is abusing and misusing anxiolytics and also has electrolyte imbalance, which contributed to the patient's delirium stage, which is improving. PLAN: This content writer offered the patient admission for further evaluation and stabilization in order to withdrawal from the benzodiazepine. The patient refused to stay. The patient at present moment does not meet the criteria for involuntary commitment and screening process. The patient has outpatient psychiatrist, Dr. Eagle Welsh. The patient advised to follow up with him in the community and take medication that was prescribed. The patient also was advised not to take more than she should. If she needs her dose to be adjusted, she needs to speak to the psychiatrist and primary care physician. The patient was verbalizing understanding. Meanwhile, the patient said that she does not have any prescription left for benzodiazepines. This content writer will give 2 mg of clonazepam twice a day. This content writer increased the dose because the patient was on Librium and the patient wants to be discharged today and the chance that the patient might be withdrawing from the Librium as well as benzodiazepines are high, that is why this content writer increased the dose to 4 mg a day. The patient was provided with a prescription for Risperdal 1 mg twice a day, one week supply and one refill was given for psychotic symptoms and mood stabilization. Klonopin 2 mg twice a day scheduled, one weeks supply and one refill was given to the patient for anxiety and possible benzodiazepines withdrawal. The patient also was provided with Lexapro 10 mg daily, one week supply and one refill. The patient was advised to follow up with primary care physician within one week, also with primary psychiatrist within one week. The patient was verbalizing understanding. The patient might benefit from staying in the psychiatric inpatient unit, but patient does not want to. We will sign off. Should you have any questions, give me a call back. Thank you very much for letting me participate in the care of your patient. Case was discussed in detail with primary care physician Dr. Marroquin. Jerilyn Chaidez MD
== END 2016-10-31 13:31 | disposition home or self-care (01) | DRG 897 ==
LOC: ED 20:15 → ERH 23:29 → CCU 10-28 02:35 → 3RNO 10-30 14:50
PROVIDERS: ADMIT Internal Medicine; ATTEND Internal Medicine
DX: F13.231 Sedative, hypnotic or anxiolytic dependence with withdrawal delirium (principal); E87.8 Other disorders of electrolyte and fluid balance, not elsewhere classified; F13.10 Sedative, hypnotic or anxiolytic abuse, uncomplicated; F32.9 Major depressive disorder, single episode, unspecified; F41.9 Anxiety disorder, unspecified; I10 Essential (primary) hypertension; M54.5 Low back pain; G89.29 Other chronic pain; B19.20 Unspecified viral hepatitis C without hepatic coma